=== PATIENT | female | born 1950 | race Caucasian/White ===

== ENCOUNTER 2020-10-19 12:33 | Outpatient (REF) | payer MEDICARE, OTHER, SELFPAY ==
[2020-10-19 14:26] LABS: Glucose Urine UA 100 MG/DL (NEG); Leukocyte Esterase Urine 1+ (NEG); Nitrite Urine NEG (NEG); Specific Gravity - Urine 1.025 (1.005-1.025); UACC Culture Trigger YES; Urine Blood 1+ (NEG); Urine Ketones NEG (NEG); Urine Protein 2+ MG/DL (NEG-TRACE)
[2020-10-19 14:28] LABS: Appearance Urine CLOUDY; Color Urine YELLOW
[2020-10-19 14:43] LABS: Bacteria Urine 2+ /LPF; Mucus Urine 1+ /LPF; Squamous Epithelial Cell Urine 1+ /LPF; WBC Urine TNTC /HPF (0-4)
== END 2020-10-19 12:34 | disposition home or self-care (01) ==
LOC: HO.HMGCLDS 12:33
PROVIDERS: PCP Internal Medicine; Visit Provider Internal Medicine
DX: R30.0 Dysuria (principal)
CPT/HCPCS: 81001; 81003; 87086; 87088; 87186

== ENCOUNTER 2021-03-08 14:39 | Outpatient (REF) | payer MEDICARE, OTHER, SELFPAY ==
[2021-03-08 16:29] LABS: Hematocrit 45.9 % (37-47); Hemoglobin 14.6 g/dl (12.0-16.0); Mean Corpuscular HGB Conc 31.8 g/dl (31.0-35.0); Mean Corpuscular Hemoglobin 29.4 pg (27.0-33.0); Mean Corpuscular Volume 92.4 fL (80-98); Mean Platelet Volume 9.8 fL (9.4-12.3); Platelet Count 285 X10*3/uL (160-400); Red Blood Count 4.97 X10*6/uL (4.20-5.50)
[2021-03-08 16:40] LABS: Alanine Aminotransferase 10 U/L (0-31); Albumin Level 4.3 g/dL (3.5-5.0); Alkaline Phosphatase 142 U/L (39-117); Anion Gap 14 (12-20); Aspartate Amino Transferase 17 U/L (5-31); Bilirubin Total 0.4 mg/dL (0.0-1.0); Blood Urea Nitrogen 13 mg/dL (9-16); Calcium 9.3 mg/dL (8.4-10.2); Carbon Dioxide 28 mmol/L (22-29); Chloride 95 mmol/L (96-108); Estimated Glomerular Filt Rate 51; Glucose Random 110 mg/dL (60-115); Potassium 5.2 mmol/L (3.3-5.1); Sodium 132 mmol/L (135-145)
[2021-03-08 17:00] LABS: TSH reflex Free T4 0.88 uIU/mL (0.32-4.0)
== END 2021-03-08 14:40 | disposition home or self-care (01) ==
LOC: HO.HMGCLDS 14:39
PROVIDERS: PCP Internal Medicine; Visit Provider Internal Medicine
DX: F41.9 Anxiety disorder, unspecified (principal); I10 Essential (primary) hypertension; J44.9 Chronic obstructive pulmonary disease, unspecified
CPT/HCPCS: 36415; 80053; 84443; 85027

== ENCOUNTER 2021-03-20 14:08 | Outpatient (REF) | payer MEDICARE, OTHER, SELFPAY ==
[2021-03-20 16:40] LABS: Anion Gap 15 (12-20); Blood Urea Nitrogen 10 mg/dL (9-16); Carbon Dioxide 28 mmol/L (22-29); Chloride 96 mmol/L (96-108); Estimated Glomerular Filt Rate 59; Glucose Random 111 mg/dL (60-115); Potassium 4.5 mmol/L (3.3-5.1); Sodium 134 mmol/L (135-145)
== END 2021-03-20 14:09 | disposition home or self-care (01) ==
LOC: HO.HMGCLDS 14:08
PROVIDERS: PCP Internal Medicine; Visit Provider Internal Medicine
DX: I10 Essential (primary) hypertension (principal)
CPT/HCPCS: 36415; 80048

== ENCOUNTER 2021-04-16 10:39 | Outpatient (REF) | payer MEDICARE, OTHER, SELFPAY ==
[2021-04-16 14:16] LABS: Appearance Urine HAZY; Color Urine YELLOW; Glucose Urine UA 100 MG/DL (NEG); Leukocyte Esterase Urine TRACE (NEG); Nitrite Urine NEG (NEG); UACC Culture Trigger YES; Urine Blood TRACE (NEG); Urine Ketones NEG (NEG); Urine Protein 1+ MG/DL (NEG-TRACE)
[2021-04-16 14:50] LABS: Bacteria Urine 1+ /LPF
[2021-04-16 14:51] LABS: Squamous Epithelial Cell Urine 2+ /LPF
== END 2021-04-16 10:40 | disposition home or self-care (01) ==
LOC: HO.HMGCLDS 10:39
PROVIDERS: PCP Internal Medicine; Visit Provider Internal Medicine
DX: R30.0 Dysuria (principal)
CPT/HCPCS: 81001; 81003; 87086

== ENCOUNTER 2021-04-18 | Outpatient (REF) | payer MEDICARE, OTHER, SELFPAY ==
[2021-04-18 16:36] LABS: Appearance Urine CLEAR; Color Urine YELLOW; Glucose Urine UA 100 MG/DL (NEG); Leukocyte Esterase Urine NEG (NEG); Nitrite Urine NEG (NEG); Specific Gravity - Urine <= 1.005 (1.005-1.025); Urine Blood NEG (NEG); Urine Ketones NEG (NEG); Urine Protein NEG (NEG-TRACE)
== END 2021-04-18 00:01 | disposition home or self-care (01) ==
LOC: HO.HMGCLNP
PROVIDERS: Visit Provider Internal Medicine
DX: R30.0 Dysuria (principal)
CPT/HCPCS: 81003

== ENCOUNTER → 2021-08-20 13:53 | Outpatient (BNVA) | payer MEDICARE, OTHER, SELFPAY | PROVIDERS: PCP Internal Medicine; Visit Provider Internal Medicine | DX: J44.9 Chronic obstructive pulmonary disease, unspecified (principal); F41.9 Anxiety disorder, unspecified; R09.02 Hypoxemia; F17.210 Nicotine dependence, cigarettes, uncomplicated | CPT/HCPCS: 99202 ==

== ENCOUNTER 2021-08-28 13:05 | Outpatient (REF) | payer MEDICARE, SELFPAY ==
--- NOTE | ~2021-08-28 | XR_ITS ---
EXAMINATION: XR CHEST CLINICAL INFORMATION: Nicotine dependence. COMPARISON: None. TECHNIQUE: 2 views of the chest were obtained. FINDINGS: The lungs are well expanded with patchy opacity seen in left upper lobe suggestive of mass. Heart size and pulmonary vascularity is normal. There is mild dextroscoliosis of dorsal spine. There is no lytic process. XR/XR chest 2V IMPRESSION: Left upper lobe opacity suggestive of primary lung lesion. Recommend CT chest for further evaluation.
--- NOTE | 2021-08-28 10:20 | PFT_ITS ---
Forced vital capacity FEV1, FEF 25/75, and MVV are all markedly decreased. Post bronchodilator therapy, there is no significant change. Lung volumes, patient was not able to perform adequate maneuvers for the lung volumes. Diffusion capacity is markedly decreased, but this may be partly due to technical reason and poor efforts. CONCLUSION: This study shows diagnosis of very severe obstructive airway disorder. There is no significant response to bronchodilator therapy. Clinical correlation is recommended. MD EARNEST Segundo/ARACELI / [id number]
== END 2021-08-28 13:06 | disposition home or self-care (01) ==
LOC: HO.XRAY 13:05
PROVIDERS: PCP Internal Medicine; Visit Provider Internal Medicine
DX: J44.9 Chronic obstructive pulmonary disease, unspecified (principal); R09.02 Hypoxemia; F17.200 Nicotine dependence, unspecified, uncomplicated; Z71.6 Tobacco abuse counseling
CPT/HCPCS: 71046; 94060; 94729; 99212

== ENCOUNTER 2021-09-10 22:19 | Emergency (ER) | payer MEDICARE, SELFPAY ==
--- NOTE | 2021-09-10 | ECG_ITS ---
Test Reason : TACHYCARDIA Blood Pressure : / mmHG Vent. Rate : 109 BPM Atrial Rate : 000 BPM P-R Int : 000 ms QRS Dur : 092 ms QT Int : 312 ms P-R-T Axes : 000 -02 -13 degrees QTc Int : 420 ms Accelerated Junctional rhythm RSR' or QR pattern in V1 suggests right ventricular conduction delay Lateral ST elevations with reciprocal changes Abnormal ECG When compared with ECG of 10-SEP-2021 22:34, Accelerated junctional rhythm Lateral ST elevations present Referred By: Saroj Morris Electronically Signed By:Jerome Whitfield
--- NOTE | ~2021-09-10 | CT_ITS ---
EXAMINATION: CT ANGIOGRAM OF THE CHEST WITH AND WITHOUT CONTRAST (CT PULMONARY ANGIOGRAM FOR PE) CLINICAL INFORMATION: Reason for Exam sob elevate d dimer COMPARISON: None TECHNIQUE: Prior to contrast administration, noncontrast localization images were obtained. Subsequently, multidetector volumetric imaging was performed from the thoracic inlet to below the diaphragms following the administration of 65 mL Omnipaque 350 intravenous contrast. No contrast reaction reported Sagittal, coronal, and MIP oblique sagittal reformatted images were obtained on the CT workstation, uploaded to PACS, and reviewed. This CT examination was performed using dose optimization techniques as appropriate, variously including the following: *Automated exposure control *Adjustment of mA and/or kV according to patient size (this includes techniques or standardized protocols for targeted exams where dose is matched to indication/reason for exam; i.e. extremities or head) *Use of iterative reconstruction technique Total exam dose-length product 254 mGy-cm FINDINGS: QUALITY OF STUDY/CONTRAST BOLUS: Satisfactory. PULMONARY ARTERIES: No central or segmental pulmonary emboli. THORACIC AORTA: No aneurysm or dissection. LUNG: Moderate to severe emphysema. There is a 3.2 x 1.5 cm opacity within left upper lobe along major fissure. There is a 1.0 cm nodule within left upper lobe. An additional 1.0 cm mean diameter nodule is present within the anterior segment left upper lobe. There is a 5 mm nodule within left upper lobe more superiorly. PLEURA: No pleural effusion or pneumothorax. MEDIASTINUM: Cardiomegaly. No pericardial effusion. No mediastinal or hilar lymphadenopathy. No evidence of septal bowing or right heart strain. CHEST WALL/AXILLA: No axillary or internal mammary lymphadenopathy. OSSEOUS STRUCTURES: No acute or suspicious osseous abnormality. UPPER ABDOMEN: Smooth low-density thickening of the bilateral adrenal glands suggestive of hyperplasia CT/CT angio chest PE protocol IMPRESSION: * No pulmonary embolism. * Moderate to severe emphysema. * Spiculated masslike opacity within left upper lobe, along with 2 additional 1 cm nodules within the left upper lobe are reflective of malignancy until proven otherwise. That being said, the opacities are somewhat low in density, and vessels are seen traversing the dominant opacity within the left upper lobe raising the possibility of an infectious process. Consider short interval follow-up CT in one month. If persistent at that time, CT-guided lung biopsy would be recommended to exclude malignancy. VTE: negative
--- NOTE | ~2021-09-10 | XR_ITS ---
EXAMINATION: XR CHEST CLINICAL INFORMATION: Tachycardia COMPARISON: 08/28/2021 TECHNIQUE: Frontal view of the chest was obtained. FINDINGS: Emphysema. Stable nodular airspace opacity in the left upper lobe concerning for a primary lung lesion. No pleural effusion or pneumothorax. Normal heart size and pulmonary vascularity. Aorta is atherosclerotic. XR/XR chest 1V IMPRESSION: No acute findings. Emphysema and persistent left upper lobe nodular airspace opacities concerning for primary lung neoplasm.
--- NOTE | 2021-09-10 22:33 | ECG_ITS ---
Test Reason : HIGH HEART RATE Blood Pressure : / mmHG Vent. Rate : 146 BPM Atrial Rate : 129 BPM P-R Int : 000 ms QRS Dur : 084 ms QT Int : 280 ms P-R-T Axes : 000 033 008 degrees QTc Int : 436 ms Afib with RVR Abnormal ECG No previous ECGs available Referred By: Generic ED Physician Electronically Signed By:Jerome Whitfield
[2021-09-10 22:36] VITALS: BP 144/73; PULSE 170; RESP 20; TEMP 36.6; O2SAT 98; BMI 21.3
[2021-09-10 22:56] LABS: MANUAL DIFF FLAG NO
[2021-09-10 22:57] LABS: Basophils Percent Auto 0.4 % (0-2); Eosinophils Absolute Auto 0.1 X10*3/uL (0.0-0.4); Eosinophils Percent Auto 0.6 % (0-4); Hematocrit 43.9 % (37.0-47.0); Hemoglobin 13.4 g/dl (12.0-16.0); Imm Gran Abs Auto 0.03 X10*3/uL (0.00-0.03); Imm Gran Pct Auto 0.3 % (0.0-0.4); Lymphocytes Percent Auto 20.9 % (20-40); Mean Corpuscular HGB Conc 30.5 g/dl (31.0-35.0); Mean Corpuscular Hemoglobin 28.5 pg (27.0-33.0); Mean Corpuscular Volume 93.4 fL (80.0-98.0); Mean Platelet Volume 9.9 fL (9.4-12.3); Monocytes Absolute Auto 1.1 X10*3/uL (0.1-1.2); Monocytes Percent Auto 11.7 % (2-11); Neutrophils Absolute Auto 6.2 x10*3/uL (2.0-8.3); Neutrophils Percent Auto 66.1 % (45-73); Platelet Count 261 X10*3/uL (160-400); Red Cell Distribution Width 14.3 % (11.0-16.0); White Blood Count 9.4 X10*3/uL (4.8-10.8)
[2021-09-10 23:12] VITALS: BP 131/72; PULSE 138; RESP 24; O2SAT 99
[2021-09-10] MEDS: Metoprolol Tartrate 5 MG/5 ML VIAL IVPUSH (23:12)
[2021-09-10 23:13] LABS: Anion Gap 12 (12-20); Blood Urea Nitrogen 15 mg/dL (9-16); Calcium 8.6 mg/dL (8.4-10.2); Carbon Dioxide 30 mmol/L (22-29); Chloride 93 mmol/L (96-108); Creatinine Clr Calc Pharmacy 29.9; Estimated Glomerular Filt Rate 44; Glucose Random 110 mg/dL (60-115); Potassium 4.8 mmol/L (3.3-5.1); Sodium 130 mmol/L (135-145)
--- NOTE | 2021-09-10 23:16 | ED_ITS ---
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 On arrival patient's heart rate was in 140s slightly irregular possible AFib Related Data Home Medications Medication Instructions Recorded Confirmed fluticasone 250 mcg-salmeterol 50 INHALATION 03/27/20 05/22/20 mcg/dose blistr powdr for inhalation omeprazole 20 mg capsule,delayed 20 mg PO QAM 09/11/21 09/11/21 release Previous Rx's Medication Instructions Recorded tiotropium bromide 18 mcg capsule 1 cap INHALATION DAILY #90 inh 11/29/20 with inhalation device lisinopril 2.5 mg tablet 2.5 mg PO DAILY #90 tab 07/09/21 albuterol sulfate 90 mcg/actuation 2 puff INHALATION Q6H PRN #8.5 ea 09/02/21 aerosol inhaler alprazolam 0.5 mg tablet 0.5 mg PO DAILY #30 tab 09/02/21 Allergies Allergy/AdvReac Type Severity Reaction Status Date / Time bupropion [From Wellbutrin] Allergy Unknown insomnia Verified 08/28/21 14:22 buspirone [From BuSpar] Allergy Unknown Stomach Verified 08/28/21 14:22 Upset nitrofurantoin Allergy Unknown Difficulty Verified 08/28/21 14:22 Breathing, COPD exacerbation sulfamethoxazole Allergy Unknown difficulty Verified 08/28/21 14:22 [From breathing, Sulfamethoxazole-Trimethoprim] COPD exacerbation trimethoprim Allergy Unknown difficulty Verified 08/28/21 14:22 [From breathing, Sulfamethoxazole-Trimethoprim] COPD exacerbation fluoxetine [Prozac] AdvReac Unknown anxiety Verified 08/28/21 14:22 sertraline [Zoloft] AdvReac Unknown stomach Verified 08/28/21 14:22 upset Statins Depletion Allergy Unknown statin Uncoded 08/28/21 14:22 intolerant Review of Systems Review of Systems: Yes all other systems are reviewed and are negative [facility] Past Medical History Medical History Anxiety COPD (chronic obstructive pulmonary disease) Depression Dysuria Hyperlipidemia Hypoxemia Lung density on x-ray Smoker Surgical History HTN (hypertension) Social History Social History Housing: House Patient Tobacco Use Status: Current everyday Tobacco user Cigarette Packs Per Day: 8 e-Cigarette/Vaping Use: Never Used Advance Directives: No Current occupational status: retired Physical Exam Vital Signs: Vital Signs: Last Vital Signs Temp 97.8 F 09/10/21 22:36 Pulse 110 H 09/11/21 00:00 Resp 18 09/11/21 00:00 BP 113/70 09/11/21 00:00 Pulse Ox 99 09/11/21 00:00 Oxygen Flow Rate 2 09/10/21 22:36 BMI result Body Mass Index 21.3 Appearance: Alert. Oriented X3. No acute distress. Eyes: PERRLA, No Nystagmus ENT: Pharynx normal. Oral Mucosa moist Neck: Normal inspection. Neck supple. CVS: Tachycardia with heart rate 140s no murmur or gallop Pulses normal. Respiratory: No respiratory distress. Equal air entry bilateral, no wheezing/rales/rhonchi Abdomen: Soft and nontender. Bowel sounds are present, no mass palpable, no CVA tenderness Skin: Skin warm and dry. Normal skin color. Normal skin turgor. Extremities: No lower extremity edema. No calf tenderness Neuro: Oriented X 3. No motor deficit. No sensory deficit.No cerebellar signs , cranial nerves II-XII intact MDM - Arrhythmia/Palpitations Medical Records Medical records narrative: Patient with tachycardia questionable AFib also 2nd EKG showed ST depression in lead 3 and AVF possible ischemic patient is still troponin was elevated will repeat the troponin patient denies any chest pain at this time but had chest pain at home when the symptoms started a patient took laura aspirin at that time will give her Lovenox plan to admit for further evaluation also will do the CT chest rule out PE Lab Data Attestation: I reviewed the patient's lab results. Result diagrams: 09/10/21 22:51 09/10/21 22:51 Labs: Lab Results 09/10/21 09/10/21 09/10/21 Range/Units 22:51 22:51 22:51 WBC 9.4 (4.8-10.8) X10*3/uL RBC 4.70 (4.20-5.50) X10*6/uL Hgb 13.4 (12.0-16.0) g/dl Hct 43.9 (37.0-47.0) % MCV 93.4 (80.0-98.0) fL MCH 28.5 (27.0-33.0) pg MCHC 30.5 L (31.0-35.0) g/dl RDW 14.3 (11.0-16.0) % Plt Count 261 (160-400) X10*3/uL MPV 9.9 (9.4-12.3) fL Immature Gran % (Auto) 0.3 (0.0-0.4) % Neut % (Auto) 66.1 (45-73) % Lymph % (Auto) 20.9 (20-40) % Leon % (Auto) 11.7 H (2-11) % Eos % (Auto) 0.6 (0-4) % Baso % (Auto) 0.4 (0-2) % Lymph # (Auto) 2.0 (1.2-4.9) X10*3/uL Leon # (Auto) 1.1 (0.1-1.2) X10*3/uL Eos # (Auto) 0.1 (0.0-0.4) X10*3/uL Baso # (Auto) 0.0 (0.0-0.2) X10*3/uL Abs Immat Gran (auto) 0.03 (0.00-0.03) X10*3/uL Absolute Neuts (auto) 6.2 (2.0-8.3) x10*3/uL Absolute Nucleated RBC 0.000 (0.0-0.012) X10*3/uL Nucleated RBC % (auto) 0.0 (0.0-0.2) /100WBC PT (9.9-13.0) SEC INR (0.9-1.1) APTT (24.1-38.0) SEC D-Dimer High Sensitivty NG/ML Sodium 130 L (135-145) mmol/L Potassium 4.8 (3.3-5.1) mmol/L Chloride 93 L (96-108) mmol/L Carbon Dioxide 30 H (22-29) mmol/L Anion Gap 12 (12-20) BUN 15 (9-16) mg/dL Creatinine 1.20 (0.5-1.4) mg/dL Estim Creat Clear Calc 29.9 Estimated GFR 44 Random Glucose 110 (60-115) mg/dL Calcium 8.6 (8.4-10.2) mg/dL Total Bilirubin 0.4 (0.0-1.0) mg/dL Direct Bilirubin < 0.2 (0.0-0.5) mg/dL AST 16 (5-31) U/L ALT 10 (0-31) U/L Alkaline Phosphatase 93 D (39-117) U/L Troponin I High Sens 47.1 H (<3.5-17.0) ng/L Total Protein 6.0 L (6.5-8.0) g/dL Albumin 3.7 (3.5-5.0) g/dL 09/10/21 Range/Units 23:07 WBC (4.8-10.8) X10*3/uL RBC (4.20-5.50) X10*6/uL Hgb (12.0-16.0) g/dl Hct (37.0-47.0) % MCV (80.0-98.0) fL MCH (27.0-33.0) pg MCHC (31.0-35.0) g/dl RDW (11.0-16.0) % Plt Count (160-400) X10*3/uL MPV (9.4-12.3) fL Immature Gran % (Auto) (0.0-0.4) % Neut % (Auto) (45-73) % Lymph % (Auto) (20-40) % Leon % (Auto) (2-11) % Eos % (Auto) (0-4) % Baso % (Auto) (0-2) % Lymph # (Auto) (1.2-4.9) X10*3/uL Leon # (Auto) (0.1-1.2) X10*3/uL Eos # (Auto) (0.0-0.4) X10*3/uL Baso # (Auto) (0.0-0.2) X10*3/uL Abs Immat Gran (auto) (0.00-0.03) X10*3/uL Absolute Neuts (auto) (2.0-8.3) x10*3/uL Absolute Nucleated RBC (0.0-0.012) X10*3/uL Nucleated RBC % (auto) (0.0-0.2) /100WBC PT 10.2 (9.9-13.0) SEC INR 0.9 (0.9-1.1) APTT 32.6 (24.1-38.0) SEC D-Dimer High Sensitivty 474 NG/ML Sodium (135-145) mmol/L Potassium (3.3-5.1) mmol/L Chloride (96-108) mmol/L Carbon Dioxide (22-29) mmol/L Anion Gap (12-20) BUN (9-16) mg/dL Creatinine (0.5-1.4) mg/dL Estim Creat Clear Calc Estimated GFR Random Glucose (60-115) mg/dL Calcium (8.4-10.2) mg/dL Total Bilirubin (0.0-1.0) mg/dL Direct Bilirubin (0.0-0.5) mg/dL AST (5-31) U/L ALT (0-31) U/L Alkaline Phosphatase (39-117) U/L Troponin I High Sens (<3.5-17.0) ng/L Total Protein (6.5-8.0) g/dL Albumin (3.5-5.0) g/dL ECG Data Attestation: I personally reviewed and interpreted this ECG as follows: Interpretation: Supraventricular narrow complex tachycardia with rate 146 beats per minute questionable AFib no acute ST wave changes Discharge Plan Discharge Clinical Impression: Supraventricular tachycardia, Non-STEMI (non-ST elevated myocardial infarction) Patient Disposition: Admitted As Inpatient
[2021-09-10 23:17] LABS: INTERNATIONAL NORM RATIO 0.9 (0.9-1.1); Prothrombin Time 10.2 SEC (9.9-13.0)
[2021-09-10 23:18] LABS: Troponin-I High Sensitivity 47.1 ng/L (<3.5-17.0)
[2021-09-10 23:20] LABS: Partial Thromboplastin Time 32.6 SEC (24.1-38.0)
[2021-09-10 23:31] VITALS: BP 113/77; PULSE 109; RESP 18; O2SAT 99
[2021-09-10 23:46] VITALS: BP 114/66; PULSE 107; RESP 18; O2SAT 99
[2021-09-11] VITALS: BP 113/70; PULSE 110; RESP 18; O2SAT 99
--- NOTE | 2021-09-11 | ECG_ITS ---
Test Reason : REPECT Blood Pressure : / mmHG Vent. Rate : 090 BPM Atrial Rate : 090 BPM P-R Int : 192 ms QRS Dur : 094 ms QT Int : 346 ms P-R-T Axes : 077 027 040 degrees QTc Int : 423 ms Normal sinus rhythm Possible Left atrial enlargement RSR' or QR pattern in V1 suggests right ventricular conduction delay Borderline ECG When compared with ECG of 10-SEP-2021 23:19, Sinus rhythm has replaced Junctional rhythm Non-specific change in ST segment in Inferior leads T wave inversion no longer evident in Inferior leads Referred By: Angel Morales Electronically Signed By:Jerome Whitfield
[2021-09-11 00:18] LABS: D Dimer High Sensitivity 474 NG/ML
[2021-09-11 00:29] LABS: Alanine Aminotransferase 10 U/L (0-31); Albumin Level 3.7 g/dL (3.5-5.0); Alkaline Phosphatase 93 U/L (39-117); Aspartate Amino Transferase 16 U/L (5-31); Bilirubin Direct < 0.2 mg/dL (0.0-0.5); Bilirubin Total 0.4 mg/dL (0.0-1.0)
[2021-09-11] MEDS: Enoxaparin Sodium 100 MG/ML SYRINGE SUBCUT (00:33)
--- NOTE | 2021-09-11 01:09 | PC.NURSE ---
Pt moved from [facility] into room 3. Pt off to CT on hospital bed. Hospitalist at bedside for eval.
[2021-09-11] MEDS: iohexoL 350 MG/ML 100 ML INFUS..BTL 65 ML IV (01:22)
--- NOTE | 2021-09-11 01:33 | PC.NURSE ---
cell phone repair technician at bedside for EKG, labs and Covid. Med Rec completed at bedside with pt.
[2021-09-11 02:08] LABS: COVID-19 Test Negative (Negative)
[2021-09-11] MEDS: 0.9 % Sodium Chloride 1,000 ML 999 ML IV (02:19)
[2021-09-11] MEDS: ALPRAZolam 0.25 MG TABLET PO (02:19)
[2021-09-11 02:24] VITALS: BP 140/69; PULSE 87; RESP 16; TEMP 36.5; O2SAT 100
--- NOTE | 2021-09-11 03:12 | PC.NURSE ---
at bedside for eval.
--- NOTE | 2021-09-11 03:46 | PC.NURSE ---
CALL OUT TO [facility] TRANSFER LINE @ [phone]
--- NOTE | 2021-09-11 04:13 | PC.NURSE ---
[facility] M5 [id number] NURSE TO NURSE
--- NOTE | 2021-09-11 04:17 | PC.NURSE ---
CALLED [facility] @ [facility] PATIENT HAS [employer] FOR INSURANCE. [facility] COULD NOT TRANSPORT PATIENT RUN #[id number] CALLED [facility] @[id number] REGARDING TRANSFER TO [facility], [facility] AGREED TO TRANSPORT
--- NOTE | 2021-09-11 04:43 | PC.NURSE ---
Nurse to nurse given to RN. Awaiting EMS.
--- NOTE | 2021-09-11 04:58 | PC.NURSE ---
EMS at bedside for transport.
== END 2021-09-11 05:00 | disposition short-term general hospital (02) ==
PROVIDERS: Internal Medicine; Emergency Provider Emergency Medicine Emergency Medical Services; PCP Internal Medicine
DX: I21.4 Non-ST elevation (NSTEMI) myocardial infarction (principal); I47.1 Supraventricular tachycardia; R00.2 Palpitations; R06.00 Dyspnea, unspecified; R91.8 Other nonspecific abnormal finding of lung field; Z20.822 Contact with and (suspected) exposure to COVID-19; I10 Essential (primary) hypertension; E78.5 Hyperlipidemia, unspecified; F17.200 Nicotine dependence, unspecified, uncomplicated
CPT/HCPCS: 36415; 71045; 71275; 80048; 80076; 84484; 85025; 85379; 85610; 85730; 87635; 93005; 96361; 96372; 96374; 99285; J1650; Q9967

== ENCOUNTER 2021-10-29 09:32 | Outpatient (REF) | payer MEDICARE, SELFPAY | END 2021-10-29 09:33 | disposition home or self-care (01) | LOC: HO.PET 09:32 | PROVIDERS: Visit Provider Internal Medicine | DX: Z13.89 Encounter for screening for other disorder (principal) ==

== ENCOUNTER 2021-11-05 09:25 | Outpatient (REF) | payer MEDICARE, SELFPAY ==
--- NOTE | ~2021-11-05 | PE_ITS ---
EXAMINATION: PET/CT FUSION SKULL TO THIGH CLINICAL INFORMATION: Pulmonary nodules. COMPARISON: CTA chest 09/11/2021. TECHNIQUE: Following intravenous administration of 15.5 mCi of F-18 FDG isotope in the left antecubital vein, whole-body emission scan was obtained from skull base to proximal thigh approximately 90 minutes later. 3.[address] transmission scan was obtained for correlative imaging without oral or IV contrast. 3-D color fusion and MIP imaging was performed on a separate workstation. Baseline glucose measures 100 mg/dL. DLP: 323.36 mGy-cm FINDINGS: SKULL BASE AND NECK: There is moderate hypermetabolic activity seen in bilateral submandibular glands with SUV of 3.16, bilateral symmetrical activity in the right posterior pharyngeal muscle with an SUV of 4.6, bilateral glossopharyngeal sulcus SUV of 3.2 and left lateral and infraparotid lymph node with an SUV measuring 9.21. The lymph node is best visualized on axial slice 203/2 and is suspicious. No abnormal metabolic activity seen in the skull base or visualized intracranial brain parenchyma. CHEST: There is mild metabolic activity seen within the posterior symmetrical cervicothoracic musculature, nonspecific. There is moderate metabolic activity seen in the main left upper lobe lesion with an SUV 3.99, main 2 cm lesion left upper lobe and mild tenting of the superior major fissure on axial slice 159/2. Slightly inferiorly in the central left upper lobe there is a 1 cm lesion on axial slice 155/2 with an SUV measurement of 1.25. There is a third lesion located anteriorly measuring 1.1 cm on axial slice 143/2 with SUV 2.66. Focal atelectatic changes are seen in the lingula on axial image 122/7. There is an FDG activity seen in the right lower lobe lesion measuring 2.2 cm on axial slice 140/2 with an SUV measurement of 4.60. This lesion was not visualized on the last CT chest exam 09/11/2021. No additional FDG activity seen in the chest, mediastinum or the axilla. Heart size is normal. There is atherosclerotic calcification of aortic arch. There is diffuse centrilobular emphysema. ABDOMEN AND PELVIS: No abnormal metabolic activity seen in the abdomen and pelvis. There is normal physiologic activity seen in the right kidney, pelvis and stomach. No activity seen in the left kidney or the pelvis. Normal physiology activity is seen in the urinary bladder. On CT visualized liver, spleen, pancreas and adrenal glands are unremarkable. No radiopaque gallstones or radiopaque renal calculi seen. There is an extrarenal right kidney pelvis. The left kidney is small. There is mild constipation. There is atherosclerotic dilatation of mid and distal abdominal aorta with distal abdominal aorta measuring 3.0 x 3.1 cm axial slice 60/2 with a calcified flap on axial image 66/2. The mid segment measures 3.5 x 3.8 cm. Imaging through the pelvis reveals no significant abnormality. MSK: No abnormal metabolic activity seen in the musculoskeletal system on CT. Mild degenerative disc changes are seen in mid and lower dorsal spine. No lytic or sclerotic process seen. There is no compression fracture. PET/PET CT fusion skull to thigh IMPRESSION: 3 focal abnormal metabolically active lesions. The main lesion in the left upper lobe adjacent to the major fissure. There are 2 smaller lesions in the left upper lobe as described above. There is a new abnormal metabolic active lesion in the right upper lobe. It is new since the last CT chest exam 09/11/2021. No abnormal metastatic lymph nodes seen in the chest. However, there is an abnormal metastatic lymph node suspected in the left neck adjacent to the left parotid gland. There is metabolic activity seen in the oropharyngeal muscles likely artifact. No CT visualized mass seen in this region.
== END 2021-11-05 09:26 | disposition home or self-care (01) ==
LOC: HO.PET 09:25
PROVIDERS: PCP Internal Medicine; Visit Provider Internal Medicine
DX: Z13.89 Encounter for screening for other disorder (principal)

== ENCOUNTER → 2021-11-18 16:11 | Outpatient (BNVA) | payer MEDICARE, SELFPAY | PROVIDERS: PCP Internal Medicine; Visit Provider Internal Medicine | DX: J44.9 Chronic obstructive pulmonary disease, unspecified (principal); R09.02 Hypoxemia; D49.1 Neoplasm of unspecified behavior of respiratory system | CPT/HCPCS: 99212 ==

== ENCOUNTER 2022-03-26 14:01 | Outpatient (REF) | payer MEDICARE, SELFPAY ==
[2022-03-26 16:52] LABS: Appearance Urine Cloudy; Color Urine Yellow; Glucose Urine UA Negative (Negative); Leukocyte Esterase Urine Moderate (2+) (Negative); Nitrite Urine Negative (Negative); UMIC TRIGGER UACC YES; Urine Blood Trace (Negative); Urine Ketones Negative (Negative); Urine Protein 100 (2+) mg/dL (Neg-Trace)
[2022-03-26 16:58] LABS: Bacteria Urine Trace (None Seen); Hyaline Casts Urine 0-2 /LPF (0-2); RBC Urine 0-2 /HPF (0-2); UACC Culture Trigger YES; WBC Urine >50 /HPF (0-5)
== END 2022-03-26 14:02 | disposition home or self-care (01) ==
LOC: HO.HMGCLDS 14:01
PROVIDERS: PCP Internal Medicine; Visit Provider Internal Medicine
DX: Z13.89 Encounter for screening for other disorder (principal)
CPT/HCPCS: 81001; 87086

== ENCOUNTER 2022-04-01 10:00 | Outpatient (REF) | payer MEDICARE, SELFPAY ==
[2022-04-01 11:42] LABS: Appearance Urine Clear; Color Urine Yellow; Glucose Urine UA Negative (Negative); Leukocyte Esterase Urine Moderate (2+) (Negative); Nitrite Urine Negative (Negative); UMIC TRIGGER UA YES; UMIC TRIGGER UACC YES; Urine Blood Negative (Negative); Urine Ketones Negative (Negative); Urine Protein 30 (1+) mg/dL (Neg-Trace)
[2022-04-01 11:51] LABS: Bacteria Urine Trace (None Seen); Hyaline Casts Urine 0-2 /LPF (0-2); RBC Urine 0-2 /HPF (0-2); UACC Culture Trigger YES; WBC Urine >50 /HPF (0-5)
== END 2022-04-01 10:01 | disposition home or self-care (01) ==
LOC: HO.HMGCLDS 10:00
PROVIDERS: PCP Internal Medicine; Visit Provider Internal Medicine
DX: R30.0 Dysuria (principal)
CPT/HCPCS: 81001; 87086; 87088; 87186

== ENCOUNTER 2022-04-15 | Outpatient (REF) | payer MEDICARE, SELFPAY | END 2022-04-15 00:01 | disposition home or self-care (01) | LOC: CF | PROVIDERS: PCP Internal Medicine; Visit Provider Internal Medicine | DX: J44.9 Chronic obstructive pulmonary disease, unspecified (principal); R09.02 Hypoxemia; D49.1 Neoplasm of unspecified behavior of respiratory system; F41.9 Anxiety disorder, unspecified; F17.200 Nicotine dependence, unspecified, uncomplicated; Z71.6 Tobacco abuse counseling | CPT/HCPCS: Q3014 ==

== ENCOUNTER → 2022-06-03 09:38 | Outpatient (BNVA) | payer MEDICARE, SELFPAY | PROVIDERS: PCP Internal Medicine; Visit Provider Internal Medicine | DX: J44.1 Chronic obstructive pulmonary disease with (acute) exacerbation (principal); D49.1 Neoplasm of unspecified behavior of respiratory system; R09.02 Hypoxemia | CPT/HCPCS: Q3014 ==

== ENCOUNTER 2022-06-13 12:56 | Outpatient (REF) | payer MEDICARE, SELFPAY ==
[2022-06-13 14:21] LABS: Appearance Urine Cloudy; Color Urine Yellow; Glucose Urine UA Negative (Negative); Leukocyte Esterase Urine Large (3+) (Negative); Nitrite Urine Negative (Negative); UMIC TRIGGER UACC YES; Urine Blood Trace (Negative); Urine Ketones Negative (Negative); Urine Protein 100 (2+) mg/dL (Neg-Trace)
[2022-06-13 14:26] LABS: Bacteria Urine None Seen (None Seen); Hyaline Casts Urine 0-2 /LPF (0-2); RBC Urine 0-2 /HPF (0-2); Squamous Epithelial Cell Urine 0-2 /HPF (0-2); UACC Culture Trigger YES; WBC Urine >50 /HPF (0-5)
== END 2022-06-13 12:57 | disposition home or self-care (01) ==
LOC: HO.HMGCLDS 12:56
PROVIDERS: PCP Internal Medicine; Visit Provider Internal Medicine
DX: R30.0 Dysuria (principal)
CPT/HCPCS: 81001; 87086

== ENCOUNTER 2022-06-17 14:05 | Outpatient (REF) | payer MEDICARE, SELFPAY ==
[2022-06-17 16:42] LABS: Appearance Urine Turbid; Color Urine Yellow; Glucose Urine UA Negative (Negative); Leukocyte Esterase Urine Moderate (2+) (Negative); Nitrite Urine Negative (Negative); PH 7.5 (5.0-9.0); Specific Gravity - Urine 1.015 (1.005-1.025); UMIC TRIGGER UACC YES; Urine Blood Small (1+) (Negative); Urine Ketones Negative (Negative); Urine Protein 100 (2+) mg/dL (Neg-Trace)
[2022-06-17 16:47] LABS: Bacteria Urine 4+ (None Seen); Hyaline Casts Urine 0-2 /LPF (0-2); UACC Culture Trigger YES; WBC Urine >50 /HPF (0-5)
== END 2022-06-17 14:06 | disposition home or self-care (01) ==
LOC: HO.HMGCLNP 14:05
PROVIDERS: PCP Internal Medicine; Visit Provider Internal Medicine
DX: R30.0 Dysuria (principal)
CPT/HCPCS: 81001; 87086; 87088; 87186

== ENCOUNTER 2022-11-29 16:42 | Emergency (ER) | payer MEDICARE, SELFPAY ==
[2022-11-29 16:50] VITALS: BP 145/76; BP 162/76; PULSE 112; PULSE 116; RESP 20; TEMP 37.6; O2SAT 94; O2SAT 95; BMI 20.8
[2022-11-29 17:05] VITALS: RESP 20
--- NOTE | 2022-11-29 17:12 | PC.NURSE ---
pt a&ox3. respirations equal but labored. o2 95 on 3L at baseline. skin warm,pink and moist. patient reporting pain in lower back with movement that worsens with ambulation.
[2022-11-29 18:06] VITALS: BP 113/62; PULSE 107; RESP 24; O2SAT 98
--- NOTE | 2022-11-29 18:43 | ED.GENADULT ---
HPI - General Adult General Chief complaint: Back Pain/Injury Stated complaint: UNABLE TO AMBULATE D/T SPINE FX PER EMS Time Seen by Provider: 11/29/22 18:15 Source: patient, family (Daughter (HCP), son.) and EMS Mode of arrival: EMS Limitations: no limitations History of Present Illness HPI narrative: 72-year-old female with advanced COPD, left upper lobe is that patient decided against any further intervention, patient fell 2 weeks ago been having low back pain, patient was evaluated at an urgent care had x-ray showed compression fraction of the lumbar back, patient was taking baclofen and prednisone for her pain, ran out of baclofen now is complaining of severe low back pain. Patient also been having wheezing requesting inhaler. Patient and family declined rehab or workup for shortness of breath and COPD and here today to control her pain and go home. Related Data Home Medications Medication Instructions Recorded Confirmed cholecalciferol (vitamin D3) 25 25 mcg PO BID 09/30/21 09/30/21 mcg (1,000 unit) capsule Previous Rx's Medication Instructions Recorded omeprazole 20 mg capsule,delayed 20 mg PO QAM #90 caps 09/11/21 release phenazopyridine 200 mg tablet 200 mg PO TID PRN pain #20 tabs 03/28/22 (Pyridium) alprazolam 0.5 mg tablet 0.5 mg PO DAILY #30 tabs 03/31/22 levofloxacin 250 mg tablet 250 mg PO DAILY 3 days #3 tabs 06/19/22 lisinopril 5 mg tablet 5 mg PO DAILY #90 tabs 07/24/22 diltiazem HCl 120 mg 120 mg PO DAILY #90 caps 09/08/22 capsule,extended release 24 hr Wixela Inhub 250 mcg-50 mcg/dose 1 inh inhalation BID #180 ea 10/06/22 powder for inhalation (fluticasone propion-salmeterol) baclofen 10 mg tablet 10 mg PO BID #30 tabs 11/07/22 prednisone 10 mg tablet See Rx Instructions PO DAILY #30 11/07/22 tabs alprazolam 0.5 mg tablet 0.5 mg PO BID Anxiety/COPD 30 11/10/22 days #60 tabs tiotropium bromide 18 mcg capsule 1 cap inhalation DAILY #90 11/10/22 with inhalation device inhalations albuterol sulfate 90 mcg/actuation 2 puff inhalation Q6H PRN for 11/20/22 aerosol inhaler wheezing #8.5 ea oxycodone 5 mg tablet 5 mg PO BID PRN pain #14 tabs 11/29/22 Allergies Allergy/AdvReac Type Severity Reaction Status Date / Time buspirone [From BuSpar] Allergy Unknown Stomach Verified 11/29/22 17:04 Upset nitrofurantoin Allergy Unknown Difficulty Verified 11/29/22 17:04 Breathing, COPD exacerbation sulfamethoxazole Allergy Unknown difficulty Verified 11/29/22 17:04 [From breathing, Sulfamethoxazole-Trimethoprim] COPD exacerbation trimethoprim Allergy Unknown difficulty Verified 11/29/22 17:04 [From breathing, Sulfamethoxazole-Trimethoprim] COPD exacerbation bupropion [From Wellbutrin] AdvReac Unknown insomnia Verified 11/29/22 17:04 fluoxetine [Prozac] AdvReac Unknown anxiety Verified 11/29/22 17:04 sertraline [Zoloft] AdvReac Unknown stomach Verified 11/29/22 17:04 upset Statins Depletion Allergy Unknown statin Uncoded 06/03/22 09:52 intolerant Review of Systems Review of Systems: All other systems are reviewed and are negative Constitutional: Reports as per HPI and Reports no additional constitutional complaints Eyes: Reports as per HPI and Reports no additional eye complaints Reports system reviewed and no additional complaints, except as documented Cardiovascular: Reports as per HPI and Reports no additional cardiovascular complaints Respiratory: Reports as per HPI and Reports no additional respiratory complaints Gastrointestinal: Reports as per HPI and Reports no additional gastrointestinal complaints Genitourinary: Reports no additional female genitourinary complaints Musculoskeletal: Reports no additional musculoskeletal complaints Skin/Breast: Reports system reviewed and no additional complaints, except as docu Psychiatric: Reports no additional psychiatric complaints Endocrine: Reports no additional endocrine complaints Hematologic/Lymphatic: Reports no additional hematologic/lymphatic complaints Allergic/Immunologic: Reports no additional allergic/immunologic complaints Reports system reviewed and no additional complaints, except as documented and Reports Abnormal speech present [facility] Past Medical History Medical History Anxiety COPD (chronic obstructive pulmonary disease) COPD exacerbation Depression History of non-ST elevation myocardial infarction (NSTEMI) (~2021) HTN (hypertension) Hyperlipidemia Hypoxemia Mass of left lung Osteoporosis (~2016) Smoker Tachycardia Tubular adenoma of colon (~2003) Surgical History History of cardiac cath History of colonoscopy History of esophagogastroduodenoscopy (EGD) Social History Social History Housing: House Alcohol intake: never Patient Tobacco Use Status: Current everyday Tobacco user Tobacco use type: Cigarette Cigarettes Per Day: 6 Smoked in Last 30 Days: Yes e-Cigarette/Vaping Use: Never Used Use of substances other than those prescribed or required for medical reasons: No Advance Directives: No Advance Directives Information Provided: No Current occupational status: retired Cognitive needs: No Hearing needs: No Vision needs: Yes Physical Exam ED Vital Signs: Vital Signs - 24 hr 11/29/22 16:50 11/29/22 17:05 11/29/22 18:06 Temperature 99.7 F Pulse Rate 116 H 107 H Respiratory Rate 20 20 24 H Blood Pressure 145/76 H 113/62 Pulse Oximetry 94 98 Oxygen Delivery Method Nasal Cannula Nasal Cannula Oxygen Flow Rate 3 11/29/22 19:31 11/29/22 22:09 Temperature Pulse Rate 100 102 H Respiratory Rate 20 15 Blood Pressure 145/62 H Pulse Oximetry 91 L Oxygen Delivery Method Nasal Cannula Oxygen Flow Rate 3.5 BMI result Body Mass Index 20.8 Vital signs have been reviewed as appeared to be correct. Blood pressure normal. Heart rate normal. Respiration rate normal. Temperature normal. Oxygen saturation normal. Appearance: Alert. Oriented X3. No acute distress. Head: Normal external exam. Normocephalic. Atraumatic. No Scruggs signs noted. No raccoon eyes noted Eyes: PERRLA. EOMI. Conjunctiva and sclera normal. Eyelids normal. ENT: TM's Normal. Pharynx normal. Uvula midline. Moist mucous membranes. No trismus noted. No drooling noted. No muffled voice noted. Neck: Normal inspection. Neck supple. FROM. No adenopathy. Thyroid Normal. No meningeal signs. No neck mass noted. CVS: Normal heart rate and rhythm. Heart sound normal. No murmurs noted. Pulses normal throughout. Respiratory: No respiratory distress. Painless inspiration. Breath sounds normal. No wheezes/rales/rhonchi noted. Chest nontender. No accessory muscle usage noted or decreased air movement noted. Abdomen: Soft and nontender. Bowel sounds normal in all 4 quadrants. No distention noted. No organomegaly noted. No visible injury noted. Back: No CVA tenderness. Full range of motion noted. Skin: Skin warm and dry. Normal skin color. Normal skin turgor. No rashes/lesions/lacerations noted. Extremities: No lower extremity edema. Extremities exhibit normal range of motion. Extremities nontender. Neuro: Oriented X 3. Cranial nerve exam: II-XII are grossly intact No motor deficit. No sensory deficit. Reflexes normal. Able to move lower extremities limited due to pain, perianal sensation is intact. Course Course Course Narrative: 72-year-old female L1-L2 compression fracture with severe back pain, daughter/patient declined rehab placement and would like to be discharged home, patient was able to ambulate in the emergency department. Patient received 1 bag of IV fluid hydration. Medications Administered Discontinued Medications Generic Name Dose Route Start Last Admin Trade Name Freq PRN Reason Stop Dose Admin Albuterol Sulfate 5 mg 11/29/22 18:54 11/29/22 19:28 Albuterol Sulfate (0.083%) 2.5 Mg/3 Ml Vial.Neb INHALE 11/29/22 18:55 5 mg ONCE ONE Administration Sodium Chloride 1,000 mls @ 999 mls/hr 11/29/22 20:49 11/29/22 22:56 Ns IV 11/29/22 21:49 Infused .Q1H1M ONE Infusion Oxycodone HCl 5 mg 11/29/22 18:43 11/29/22 18:48 Oxycodone Hcl Immed Release 5 Mg Tablet PO 11/29/22 18:44 5 mg ONCE ONE Administration Medical Decision Making Differential Diagnosis Differential Diagnoses: The differential diagnosis associated with the presentation includes (Compression fracture of lumbar spine, dehydration, electrolyte abnormalities, anemia.) Admission/Observation Consideration of admission/observation: Escalation of care including admission/observation considered Lab Data MDM Lab Attestation statement: I reviewed the patient's lab results. 11/29/22 20:57 11/29/22 20:57 Labs: Lab Results 11/29/22 11/29/22 Range/Units 20:57 20:57 WBC 11.5 H (4.8-10.8) X10*3/uL RBC 4.43 (4.20-5.50) X10*6/uL Hgb 12.8 (12.0-16.0) g/dl Hct 42.3 (37.0-47.0) % MCV 95.5 (80.0-98.0) fL MCH 28.9 (27.0-33.0) pg MCHC 30.3 L (31.0-35.0) g/dl RDW 14.6 (11.0-16.0) % Plt Count 257 (160-400) X10*3/uL MPV 9.4 (9.4-12.3) fL Immature Gran % (Auto) 1.0 H (0.0-0.4) % Neut % (Auto) 85.8 H (45-73) % Lymph % (Auto) 5.5 L (20-40) % [place] % (Auto) 7.3 (2-11) % Eos % (Auto) 0.2 (0-4) % Baso % (Auto) 0.2 (0-2) % Lymph # (Auto) 0.6 L (1.2-4.9) X10*3/uL [place] # (Auto) 0.8 (0.1-1.2) X10*3/uL Eos # (Auto) 0.0 (0.0-0.4) X10*3/uL Baso # (Auto) 0.0 (0.0-0.2) X10*3/uL Abs Immat Gran (auto) 0.11 H (0.00-0.03) X10*3/uL Absolute Neuts (auto) 9.9 H (2.0-8.3) x10*3/uL Absolute Nucleated RBC 0.000 (0.0-0.012) X10*3/uL Nucleated RBC % (auto) 0.0 (0.0-0.2) /100WBC Sodium 137 (135-145) mmol/L Potassium 4.5 (3.3-5.1) mmol/L Chloride 91 L (96-108) mmol/L Carbon Dioxide 33 H (22-29) mmol/L Anion Gap 18 (12-20) BUN 35 H (9-16) mg/dL Creatinine 1.17 (0.5-1.4) mg/dL Estim Creat Clear Calc 31.8 Estimated GFR 45 Random Glucose 90 (60-115) mg/dL Calcium 10.2 D (8.4-10.2) mg/dL Lipase 15 (8-78) U/L Independent Interpretation I performed an independent interpretation of an: Plain X-Ray (Chest/thoracic spine/lumbar spine: Diffuse osteoporosis, L1 L2 compression fracture.) Radiology Impression Discussion of test interpretation with radiology: I have reviewed the radiologist's reading. Discharge Plan Discharge Clinical Impression: Back pain, Compression fracture of lumbosacral spine Patient Disposition: Home, Self-Care Instructions: Vertebral Compression Fracture (ED) Prescriptions: New oxycodone 5 mg tablet 5 mg PO BID PRN (Reason: pain) Qty: 14 0RF Rx Instructions: Partial Fill upon patient request. No Action phenazopyridine [Pyridium] 200 mg tablet 200 mg PO TID PRN (Reason: pain) Qty: 20 0RF alprazolam 0.5 mg tablet 0.5 mg PO DAILY Qty: 30 0RF omeprazole 20 mg capsule,delayed release(DR/EC) 20 mg PO QAM Qty: 90 3RF levofloxacin 250 mg tablet 250 mg PO DAILY 3 Days Qty: 3 0RF lisinopril 5 mg tablet 5 mg PO DAILY Qty: 90 0RF diltiazem HCl 120 mg capsule,extended release 24hr 120 mg PO DAILY Qty: 90 3RF fluticasone propion-salmeterol [Wixela Inhub] 250-50 mcg/dose blister with device 1 inh inhalation BID Qty: 180 0RF prednisone 10 mg tablet See Rx Instructions PO DAILY Qty: 30 0RF Rx Instructions: Four tablets p.o. q.d. for 3 days then 3 tablets p.o. q.d. for 3 days then 2 tablets p.o. q.d. for 3 days and 1 tablet p.o. q.d. for 3 days baclofen 10 mg tablet 10 mg PO BID Qty: 30 0RF tiotropium bromide 18 mcg capsule, w/inhalation device 1 cap inhalation DAILY Qty: 90 0RF Rx Instructions: Schedule office visit for future refills alprazolam 0.5 mg tablet 0.5 mg PO BID 30 Days Qty: 60 2RF albuterol sulfate 90 mcg/actuation HFA aerosol inhaler 2 puff inhalation Q6H PRN (Reason: for wheezing) Qty: 8.5 0RF Rx Instructions: Schedule next PCP appt for more refills cholecalciferol (vitamin D3) 25 mcg (1,000 unit) capsule 25 mcg PO BID Referrals: José Luis Carpio MD [Primary Care Provider] -
[2022-11-29 19:31] VITALS: PULSE 100; RESP 20; O2SAT 94
[2022-11-29 22:09] VITALS: BP 145/62; PULSE 102; RESP 15; O2SAT 91
--- NOTE | 2022-11-29 22:57 | PC.NURSE ---
late entry- this rn placed 20 g iv in R AC. bloodwork obtained. pt medicated according to mar. pt son and daughter at bedside this rn assisted pt in utilizing bedside commode. pt 1 assist to commode. pt rets really wants to go home. per family daught feels okay assisting pt at home though wants to make sure pt will be prescribed medication for pain relief. this rn relayed this message to dr kirby. dr kirby reports will go to bedside to discuss plan with family. disposition pending
--- NOTE | 2022-11-30 00:20 | PC.NURSE ---
Addendum entered by Aracely Castro 11/30/22 00:44: this rn assisted pt daughter in dressing pt at discharge. pt reports breathing felt fine at discharge. pt continues to refuse final set of vital signs Original Note: pt refused final set of VS prior to discharge. this rn removed iv at time of discharge. pt agitated states I just want to go home . this rn provided pt and family with discharge packet. pt and family verbalized understanding of discharge plan. pt utilized wheelchair to transport pt to family vehicle
== END 2022-11-30 00:46 | disposition home or self-care (01) ==
PROVIDERS: Emergency Provider Emergency Medicine; PCP Internal Medicine
DX: M54.50 Low back pain, unspecified (principal); M48.57XA Collapsed vertebra, not elsewhere classified, lumbosacral region, initial encounter for fracture; I10 Essential (primary) hypertension; E78.5 Hyperlipidemia, unspecified; F17.210 Nicotine dependence, cigarettes, uncomplicated; Z79.899 Other long term (current) drug therapy
CPT/HCPCS: 36415; 71045; 72070; 72100; 80048; 83690; 85025; 94640; 99285

== ENCOUNTER → 2022-12-03 15:51 | Outpatient (BNVA) | payer MEDICARE, OTHER, SELFPAY | PROVIDERS: PCP Internal Medicine; Visit Provider Internal Medicine | DX: J44.9 Chronic obstructive pulmonary disease, unspecified (principal); D49.1 Neoplasm of unspecified behavior of respiratory system; J96.91 Respiratory failure, unspecified with hypoxia; M54.9 Dorsalgia, unspecified; F17.210 Nicotine dependence, cigarettes, uncomplicated | CPT/HCPCS: 99212 ==

== ENCOUNTER 2023-01-01 13:19 | Inpatient (IN) | payer MEDICARE, SELFPAY ==
[2023-01-01] VITALS (8 sets, daily range): BP systolic 116–133; BP diastolic 52–63; PULSE 67–113; RESP 18–30; TEMP 36.7–38.1; O2SAT 91–100; BMI 20.9; BMI 20.8
--- NOTE | ~2023-01-01 | XR_ITS ---
EXAMINATION: XR CHEST CLINICAL INFORMATION: Status post endotracheal and TLC placement. COMPARISON: 01/11/2023 chest radiograph. TECHNIQUE: Frontal view of the chest was obtained. FINDINGS: Support devices: Endotracheal tube with tip terminating approximately 3 cm proximal to enedelia. Right-sided internal jugular catheter with tip terminating distally in the superior vena cava. Increased patchy opacities and right basilar opacification is seen. Mild patchy opacities are seen in the left suprahilar region. No pneumothorax. The heart and mediastinal structures are unremarkable. XR/XR chest 1V IMPRESSION: 1. Endotracheal tube with tip terminating approximately 3 cm proximal to enedelia. 2. Right internal jugular catheter with tip terminating distally in the superior vena cava. 3. Increased infiltrates bilaterally and right pleural effusion.
--- NOTE | ~2023-01-01 | XR_ITS ---
EXAMINATION: XR CHEST CLINICAL INFORMATION: Shortness of breath. COMPARISON: 01/01/2023 TECHNIQUE: Frontal view of the chest was obtained. FINDINGS: The cardiomediastinal silhouette is stable. There is mild diffuse increased interstitial marking/coarsening similar to previous. There is no focal lung consolidation or pleural effusion. The bony structures are osteopenic. The soft tissues are unremarkable. XR/XR chest 1V IMPRESSION: Diffuse increased interstitial marking/coarsening similar to previous. No focal lung consolidation or pleural effusion.
--- NOTE | ~2023-01-01 | XR_ITS ---
EXAMINATION: XR CHEST CLINICAL INFORMATION: Shortness of breath COMPARISON: 11/29/2022 TECHNIQUE: Frontal view of the chest was obtained. FINDINGS: Irregular airspace opacity in the left upper lung zone is slightly more prominent than on 11/29/2022. There are also developing patchy opacities in the right lower lobe. No gross pleural effusions are evident. The cardiomediastinal silhouette is not well assessed. Thoracolumbar scoliosis is again evident. XR/XR chest 1V IMPRESSION: Worsening left upper lobe and newly developing right mid and lower lung zone airspace opacities 11/29/2022.
--- NOTE | ~2023-01-01 | XR_ITS ---
EXAMINATION: XR CHEST CLINICAL INFORMATION: Hypoxia, worsening. Rule out aspiration. COMPARISON: Chest x-ray 01/09/2023 TECHNIQUE: Frontal view of the chest was obtained. FINDINGS: The lungs are expanded with diffuse increase interstitial markings in both lungs worse since 01/09/2023. No focal consolidation. There is mild blunting of left CP angle question pleural effusion or thickening. Heart size and the great vessels are normal caliber. No gross bony abnormality. No gross bony abnormality seen. XR/XR chest 1V IMPRESSION: 1. Diffuse increase interstitial markings in both lungs worse since 01/09/2023. No focal consolidation seen. 2. Mild blunting of left CP angle question pleural effusion or thickening.
--- NOTE | 2023-01-01 13:38 | ECG_ITS ---
Test Reason : DYSPNEA Blood Pressure : / mmHG Vent. Rate : 106 BPM Atrial Rate : 106 BPM P-R Int : 168 ms QRS Dur : 088 ms QT Int : 332 ms P-R-T Axes : 043 026 048 degrees QTc Int : 441 ms Artifact in tracing Sinus tachycardia Possible Left atrial enlargement Septal infarct , age undetermined Abnormal ECG When compared with ECG of 11-SEP-2021 01:30, No significant changes seen Referred By: Trice Sharma Electronically Signed By:FELISHA JIMENEZ
--- NOTE | 2023-01-01 13:59 | ED.SOB ---
HPI - SOB/Dyspnea General Chief Complaint: Dyspnea Stated Complaint: COPD,WEAKNESS,COVID+ Time Seen by Provider: 01/01/23 13:47 Source: patient and family Limitations: no limitations History of Present Illness HPI Narrative: 72-year-old female with history COPD presents with generalized weakness. Symptoms started within the last 24-36 hours. Patient tested positive for COVID yesterday as well as today. Sick contacts include her daughter who lives below her. Patient has chronic shortness of breath which is not significantly changed. She has a cough which is also not significantly changed. She denies any fevers or chills. She denies any nausea vomiting. All of her symptoms appear to be worsened by any type of exertion. Typically, patient is able to help herself getting to and from the bathroom another head ADLs. However, she has noted a significant decline over the several months previous regards to her activity levels. Family has also recent obtained this services of an aide. Related Data Home Medications Medication Instructions Recorded Confirmed cholecalciferol (vitamin D3) 25 25 mcg PO BID 09/30/21 09/30/21 mcg (1,000 unit) capsule fluticasone 250 mcg-salmeterol 50 1 ea inhalation BID 01/01/23 mcg/dose blistr powdr for inhalation (Steven Inhfeng) omeprazole 20 mg capsule,delayed 20 mg PO DAILY@0630 01/01/23 release oxycodone 5 mg tablet 5 mg PO BID PRN Pain 01/01/23 Previous Rx's Medication Instructions Recorded phenazopyridine 200 mg tablet 200 mg PO TID PRN pain #20 tabs 03/28/22 (Pyridium) diltiazem HCl 120 mg 120 mg PO DAILY #90 caps 09/08/22 capsule,extended release 24 hr baclofen 10 mg tablet 10 mg PO BID #30 tabs 11/07/22 alprazolam 0.5 mg tablet 0.5 mg PO BID Anxiety/COPD 30 11/10/22 days #60 tabs tiotropium bromide 18 mcg capsule 1 cap inhalation DAILY #90 11/10/22 with inhalation device inhalations lisinopril 5 mg tablet 5 mg PO DAILY #90 tabs 12/05/22 albuterol sulfate 90 mcg/actuation 2 puff inhalation Q6H PRN for 12/19/22 aerosol inhaler wheezing #8.5 ea nirmatrelvir 300 mg (150 mg See Rx Instructions PO .COMPLEX 12/31/22 x2)-ritonavir 100 mg tablet,dose covid 5 days #30 ea pack (Paxlovid) Allergies Allergy/AdvReac Type Severity Reaction Status Date / Time buspirone [From BuSpar] Allergy Unknown Stomach Verified 12/03/22 16:22 Upset nitrofurantoin Allergy Unknown Difficulty Verified 12/03/22 16:22 Breathing, COPD exacerbation sulfamethoxazole Allergy Unknown difficulty Verified 12/03/22 16:22 [From breathing, Sulfamethoxazole-Trimethoprim] COPD exacerbation trimethoprim Allergy Unknown difficulty Verified 12/03/22 16:22 [From breathing, Sulfamethoxazole-Trimethoprim] COPD exacerbation bupropion [From Wellbutrin] AdvReac Unknown insomnia Verified 12/03/22 16:22 fluoxetine [Prozac] AdvReac Unknown anxiety Verified 12/03/22 16:22 sertraline [Zoloft] AdvReac Unknown stomach Verified 12/03/22 16:22 upset Statins Depletion Allergy Unknown statin Uncoded 12/03/22 16:22 intolerant Review of Systems Review of Systems: CONSTITUTIONAL: Denies weight loss, fever and chills. HEENT: Denies changes in vision and hearing. RESPIRATORY: + SOB and cough. CV: Denies palpitations no CP. GI: Denies abdominal pain, nausea, vomiting and diarrhea. : Denies dysuria and urinary frequency. MSK: Denies myalgia and joint pain. SKIN: Denies rash and pruritus. NEUROLOGICAL: Denies headache and syncope. PSYCHIATRIC: Denies recent changes in mood. Denies anxiety and depression. All other ROS are negative unless in HPI PMFSH Past Medical History Medical History Anxiety Back pain COPD (chronic obstructive pulmonary disease) COPD exacerbation Depression History of non-ST elevation myocardial infarction (NSTEMI) (~2021) HTN (hypertension) Hyperlipidemia Hypoxemia Mass of left lung Osteoporosis (~2016) Respiratory failure with hypoxia Smoker Tachycardia Tubular adenoma of colon (~2003) Surgical History History of cardiac cath History of colonoscopy History of esophagogastroduodenoscopy (EGD) Social History Social History Housing: House Alcohol intake: never Patient Tobacco Use Status: Current everyday Tobacco user Tobacco use type: Cigarette Cigarettes Per Day: 2 Smoked in Last 30 Days: No e-Cigarette/Vaping Use: Never Used Use of substances other than those prescribed or required for medical reasons: No Advance Directives: Yes Advance Directives on File: Yes Advance Directives Date on File: 01/01/23 Current occupational status: retired Cognitive needs: No Hearing needs: No Vision needs: Yes Physical Exam Vital Signs: Vital Signs: Last Vital Signs Temp 98.0 F 01/01/23 16:48 Pulse 108 H 01/01/23 16:48 Resp 30 H 01/01/23 16:48 BP 118/52 L 01/01/23 16:48 Pulse Ox 91 L 01/01/23 16:48 O2 Del Method Room Air 01/01/23 16:48 O2 Flow Rate 2.5 01/01/23 16:48 Oxygen Flow Rate 4 01/01/23 13:42 BMI result Body Mass Index 20.9 GEN: Well developed, no acute distress, alert, oriented HEENT: Normocephalic, atraumatic, normal external ears, nose appears normal, no oropharyngeal edema or exudates Eyes: Normal to appearance Neck: Supple, no lymphadenopathy Respiratory: Talks in complete sentences, expiratory wheezes Cardiovascular: Regular rate and rhythm, no murmurs rubs or gallops Abdomen: Soft, nontender, nondistended, no guarding, no rebound Back: No CVA tenderness Extremities: No clubbing cyanosis or edema Neurologic: No focal neurologic deficits, cranial nerves 2-12 intact, strength is 5/5 bilaterally Skin: No rash Course Course Course Narrative: The workup is complete. Patient did test negative for COVID. However, given close contact I suspect this is a false negative with 2 home positive test. I did order Paxil that. I will also order azithromycin given new airspace opacifications. She is generally weak. I believe patient would be better off be admitted the hospital. At that point, she can have physical therapy evaluation and potential placement of home services and/or short-term rehabilitation. Reevaluation(s) Reevaluation #1: Patient is full code. Patient is aware of her spiculated mass in the left lung. Per daughter, there has been no further workup and was felt that she would be for patient for chemotherapy. Time: 15:50 Medications Administered Generic Name Dose Route Start Last Admin Trade Name Alanna PRN Reason Stop Dose Admin Nirmatrelvir/Ritonavir 3 tab 01/01/23 21:00 01/01/23 15:47 Nirmatrelvir/Ritonavir 300/100 3 Tab Dose PO 01/06/23 09:01 3 tab BID MCKENNA Administration Medical Decision Making Medical Decision Making [facility] Narrative: 72-year-old female with history of COPD presents with generalized weakness and a positive home COVID test. Examination is relatively benign with the exception of expiratory wheezes. Patient does appear generally weak but no focal deficits. Differential diagnosis will include COVID, electrolyte abnormalities such as hyponatremia, hypokalemia, hypoglycemia, anemia folic etiology of weakness. My plan will be to obtain routine laboratory analysis, COVID test, chest x-ray. Will re-evaluate the patient. I suspect patient may warrant physical therapy and case management consultation for possible short-term rehabilitation or in home services. Differential Diagnosis Differential Diagnoses: The differential diagnosis associated with the presentation includes (See above) Admission/Observation Consideration of admission/observation: Escalation of care including admission/observation considered Lab Data [facility] Lab Attestation statement: I reviewed the patient's lab results. 01/01/23 13:59 01/01/23 13:59 Labs: Lab Results 01/01/23 01/01/23 01/01/23 Range/Units 13:59 13:59 13:59 WBC 7.8 (4.8-10.8) X10*3/uL RBC 3.62 L (4.20-5.50) X10*6/uL Hgb 10.7 L (12.0-16.0) g/dl Hct 34.9 L (37.0-47.0) % MCV 96.4 (80.0-98.0) fL MCH 29.6 (27.0-33.0) pg MCHC 30.7 L (31.0-35.0) g/dl RDW 15.4 (11.0-16.0) % Plt Count 245 (160-400) X10*3/uL MPV 9.8 (9.4-12.3) fL Immature Gran % (Auto) 1.4 H (0.0-0.4) % Neut % (Auto) 80.0 H (45-73) % Lymph % (Auto) 8.5 L (20-40) % [place] % (Auto) 9.9 (2-11) % Eos % (Auto) 0.1 (0-4) % Baso % (Auto) 0.1 (0-2) % Lymph # (Auto) 0.7 L (1.2-4.9) X10*3/uL [place] # (Auto) 0.8 (0.1-1.2) X10*3/uL Eos # (Auto) 0.0 (0.0-0.4) X10*3/uL Baso # (Auto) 0.0 (0.0-0.2) X10*3/uL Abs Immat Gran (auto) 0.11 H (0.00-0.03) X10*3/uL Absolute Neuts (auto) 6.2 (2.0-8.3) x10*3/uL Absolute Nucleated RBC 0.000 (0.0-0.012) X10*3/uL Nucleated RBC % (auto) 0.0 (0.0-0.2) /100WBC Sodium 135 (135-145) mmol/L Potassium 4.4 (3.3-5.1) mmol/L Chloride 93 L (96-108) mmol/L Carbon Dioxide 29 (22-29) mmol/L Anion Gap 17 (12-20) BUN 20 H (9-16) mg/dL Creatinine 0.93 (0.5-1.4) mg/dL Estim Creat Clear Calc 40.0 Estimated GFR 59 Random Glucose 88 (60-115) mg/dL Lactic Acid (0.5-2.0) mmol/L Calcium 9.1 D (8.4-10.2) mg/dL Magnesium 1.8 (1.6-2.6) mg/dL Total Bilirubin 0.3 (0.0-1.0) mg/dL AST 15 (5-31) U/L ALT 10 (0-31) U/L Alkaline Phosphatase 122 H (39-117) U/L Troponin I High Sens 16.3 (<3.5-17.0) ng/L Total Protein 6.1 L (6.5-8.0) g/dL Albumin 3.4 L (3.5-5.0) g/dL COVID-19 (IVANA) (Negative) COVID-19 Clin Com 01/01/23 01/01/23 Range/Units 14:05 14:24 WBC (4.8-10.8) X10*3/uL RBC (4.20-5.50) X10*6/uL Hgb (12.0-16.0) g/dl Hct (37.0-47.0) % MCV (80.0-98.0) fL MCH (27.0-33.0) pg MCHC (31.0-35.0) g/dl RDW (11.0-16.0) % Plt Count (160-400) X10*3/uL MPV (9.4-12.3) fL Immature Gran % (Auto) (0.0-0.4) % Neut % (Auto) (45-73) % Lymph % (Auto) (20-40) % [place] % (Auto) (2-11) % Eos % (Auto) (0-4) % Baso % (Auto) (0-2) % Lymph # (Auto) (1.2-4.9) X10*3/uL [place] # (Auto) (0.1-1.2) X10*3/uL Eos # (Auto) (0.0-0.4) X10*3/uL Baso # (Auto) (0.0-0.2) X10*3/uL Abs Immat Gran (auto) (0.00-0.03) X10*3/uL Absolute Neuts (auto) (2.0-8.3) x10*3/uL Absolute Nucleated RBC (0.0-0.012) X10*3/uL Nucleated RBC % (auto) (0.0-0.2) /100WBC Sodium (135-145) mmol/L Potassium (3.3-5.1) mmol/L Chloride (96-108) mmol/L Carbon Dioxide (22-29) mmol/L Anion Gap (12-20) BUN (9-16) mg/dL Creatinine (0.5-1.4) mg/dL Estim Creat Clear Calc Estimated GFR Random Glucose (60-115) mg/dL Lactic Acid 1.0 (0.5-2.0) mmol/L Calcium (8.4-10.2) mg/dL Magnesium (1.6-2.6) mg/dL Total Bilirubin (0.0-1.0) mg/dL AST (5-31) U/L ALT (0-31) U/L Alkaline Phosphatase (39-117) U/L Troponin I High Sens (<3.5-17.0) ng/L Total Protein (6.5-8.0) g/dL Albumin (3.5-5.0) g/dL COVID-19 (IVANA) Negative (Negative) COVID-19 Clin Com See Note Independent Interpretation I performed an independent interpretation of an: EKG (Sinus tachycardia heart rate 106, possible biatrial enlargement, no acute ST elevations depressions, some areas of low-voltage, isolated ST elevation in V3, incomplete right bundle-branch block) and Plain X-Ray (Left upper lobe mass, appears to be slightly larger than previous, airspace opacifications bilaterally.) Radiology Impression Discussion of test interpretation with radiology: I have reviewed the radiologist's reading. Radiologist Impression: XR/XR chest 1V IMPRESSION: Worsening left upper lobe and newly developing right mid and lower lung zone airspace opacities 11/29/2022. ? Dictated By: Xander Tadeo MD Signed By: <Electronically signed by Xander Tadoe MD in OV> 01/01/23 1525 Independent Historian Clinical information obtained from an independent historian. History obtained from or confirmed by: Other (Daughter) Prescription Management I considered prescription management with: Antiviral and Antibiotic Chronic Conditions Patient?s care impacted by: Other (COPD) Critical Care Time Critical Care Time Critical Care Time: Yes Total Critical Care Time: 40 Attestation: Approximately 40+ minutes of critical care time was spent on patient care including direct patient care, re-evaluation, discussion with family, review of previous medical records, documentation, interpretation and medical data and medical management. This was all outside of medical procedures. Discharge Plan Discharge Clinical Impression: Generalized weakness, COPD (chronic obstructive pulmonary disease), Pneumonia Patient Disposition: Home, Self-Care Prescriptions: No Action phenazopyridine [Pyridium] 200 mg tablet 200 mg PO TID PRN (Reason: pain) Qty: 20 0RF diltiazem HCl 120 mg capsule,extended release 24hr 120 mg PO DAILY Qty: 90 3RF baclofen 10 mg tablet 10 mg PO BID Qty: 30 0RF tiotropium bromide 18 mcg capsule, w/inhalation device 1 cap inhalation DAILY Qty: 90 0RF alprazolam 0.5 mg tablet 0.5 mg PO BID 30 Days Qty: 60 2RF lisinopril 5 mg tablet 5 mg PO DAILY Qty: 90 0RF albuterol sulfate 90 mcg/actuation HFA aerosol inhaler 2 puff inhalation Q6H PRN (Reason: for wheezing) Qty: 8.5 0RF Paxlovid 300 mg (150 mg x 2)-100 mg tablets,dose pack See Rx Instructions PO .COMPLEX 5 Days Qty: 30 0RF Rx Instructions: take TWO 150 mg tablets of nirmatrelvir with ONE 100 mg tablet of ritonavir twice daily for 5 days PO fluticasone propion-salmeterol [Wixela Inhub] 250-50 mcg/dose blister with device 1 ea inhalation BID oxycodone 5 mg tablet 5 mg PO BID PRN (Reason: Pain) omeprazole 20 mg capsule,delayed release(DR/EC) 20 mg PO DAILY@0630 cholecalciferol (vitamin D3) 25 mcg (1,000 unit) capsule 25 mcg PO BID
--- NOTE | 2023-01-01 14:00 | PC.NURSE ---
Pt. on continuous monitor tech at this time.
[2023-01-01 14:12] LABS: MANUAL DIFF FLAG NO
[2023-01-01 14:15] LABS: Basophils Percent Auto 0.1 % (0-2); Eosinophils Percent Auto 0.1 % (0-4); Hematocrit 34.9 % (37.0-47.0); Hemoglobin 10.7 g/dl (12.0-16.0); Imm Gran Abs Auto 0.11 X10*3/uL (0.00-0.03); Imm Gran Pct Auto 1.4 % (0.0-0.4); Lymphocytes Absolute Auto 0.7 X10*3/uL (1.2-4.9); Lymphocytes Percent Auto 8.5 % (20-40); Mean Corpuscular HGB Conc 30.7 g/dl (31.0-35.0); Mean Corpuscular Hemoglobin 29.6 pg (27.0-33.0); Mean Corpuscular Volume 96.4 fL (80.0-98.0); Mean Platelet Volume 9.8 fL (9.4-12.3); Monocytes Absolute Auto 0.8 X10*3/uL (0.1-1.2); Monocytes Percent Auto 9.9 % (2-11); Neutrophils Absolute Auto 6.2 x10*3/uL (2.0-8.3); Platelet Count 245 X10*3/uL (160-400); Red Blood Count 3.62 X10*6/uL (4.20-5.50); Red Cell Distribution Width 15.4 % (11.0-16.0); White Blood Count 7.8 X10*3/uL (4.8-10.8)
[2023-01-01 14:34] LABS: Alanine Aminotransferase 10 U/L (0-31); Albumin Level 3.4 g/dL (3.5-5.0); Alkaline Phosphatase 122 U/L (39-117); Anion Gap 17 (12-20); Aspartate Amino Transferase 15 U/L (5-31); Bilirubin Total 0.3 mg/dL (0.0-1.0); Blood Urea Nitrogen 20 mg/dL (9-16); Calcium 9.1 mg/dL (8.4-10.2); Carbon Dioxide 29 mmol/L (22-29); Chloride 93 mmol/L (96-108); Estimated Glomerular Filt Rate 59; Glucose Random 88 mg/dL (60-115); Magnesium 1.8 mg/dL (1.6-2.6); Potassium 4.4 mmol/L (3.3-5.1); Sodium 135 mmol/L (135-145); Total Protein 6.1 g/dL (6.5-8.0)
[2023-01-01 14:40] LABS: Troponin-I High Sensitivity 16.3 ng/L (<3.5-17.0)
[2023-01-01 15:00] LABS: COVID-19 Test Negative (Negative); IDNOW Serial# BCCEAD1C
--- NOTE | 2023-01-01 16:50 | P.HPHOSP_ITS ---
History of Present Illness Date of Service: 01/01/23 Attending physician on admission: Enrique Sultana Chief Complaint: Generalized weakness Pt is a 72-year-old female with a PMH significant for?moderately severe COPD on 3L home O2, upper left lobe lung cancer declining radiation or chemo, HTN, HLD, GERD, hx heavy tobacco use, and anxiety who presents to the ED with?worsening generalized weakness during the past 24-48 hours. Patient has been getting progressively weak over the past few months likely secondary to her lung cancer, but has still been able to stand up on her own and assist with her ADLs. However, patient states the past couple of days she has experienced a severe decline in her energy levels and has been unable to even stand up. Chronic SOB and chronic productive cough have been at baseline, but patient tested positive for COVID yesterday and again this morning at home. Has two sick contacts: Her daughter who tested positive for COVID a week ago, and her downstairs neighbor who just returned from a hospitalization secondary to a COVID infection. Patient denies fever, chills, nausea, vomiting, abdominal pain. No chest pain/pressure, palpitations. In the ED patient was afebrile tachycardic to 113, with respiratory rate of 20 and slightly soft BP 120/52, desatting to 72% on RA and with minimal exertion. Labs were significant for H&H 10.7/34.9. Lactic acid WNL at 1.0. Electrolytes largely unremarkable. Kidney function at baseline. Renal function at baseline. Patient's initial COVID-19 test negative. CXR showed worsening left upper lobe and newly developing right mid and lower lung zone airspace opacities. EKG demonstrated sinus tachycardia 106 with no evidence of ST elevations or depressions. Pt was treated with Paxlovid. Pt will be admitted to the hospital for acute hypoxic respiratory failure in the setting of COPD exacerbation secondary to COVID infection. Review of Systems Review of Systems: Worsening generalized weakness Chronic shortness of breath Chronic productive cough Denies fever, chills, nausea, vomiting, abdominal pain No chest pain/pressure, palpitations Denies myalgias Yes all other systems are reviewed and are negative PENDING SALE TO [facility] Medical History Anxiety Back pain COPD (chronic obstructive pulmonary disease) COPD exacerbation Depression History of non-ST elevation myocardial infarction (NSTEMI) (~2021) HTN (hypertension) Hyperlipidemia Hypoxemia Mass of left lung Osteoporosis (~2016) Respiratory failure with hypoxia Smoker Tachycardia Tubular adenoma of colon (~2003) Surgical History History of cardiac cath History of colonoscopy History of esophagogastroduodenoscopy (EGD) Social History Housing: House Alcohol intake: never Patient Tobacco Use Status: Current everyday Tobacco user Tobacco use type: Cigarette Cigarettes Per Day: 2 Smoked in Last 30 Days: No e-Cigarette/Vaping Use: Never Used Use of substances other than those prescribed or required for medical reasons: No Advance Directives: Yes Advance Directives on File: Yes Advance Directives Date on File: 01/01/23 Current occupational status: retired Cognitive needs: No Hearing needs: No Vision needs: Yes Meds Allergies Allergy/AdvReac Type Severity Reaction Status Date / Time buspirone [From BuSpar] Allergy Unknown Stomach Verified 12/03/22 16:22 Upset nitrofurantoin Allergy Unknown Difficulty Verified 12/03/22 16:22 Breathing, COPD exacerbation sulfamethoxazole Allergy Unknown difficulty Verified 12/03/22 16:22 [From breathing, Sulfamethoxazole-Trimethoprim] COPD exacerbation trimethoprim Allergy Unknown difficulty Verified 12/03/22 16:22 [From breathing, Sulfamethoxazole-Trimethoprim] COPD exacerbation bupropion [From Wellbutrin] AdvReac Unknown insomnia Verified 12/03/22 16:22 fluoxetine [Prozac] AdvReac Unknown anxiety Verified 12/03/22 16:22 sertraline [Zoloft] AdvReac Unknown stomach Verified 12/03/22 16:22 upset Statins Depletion Allergy Unknown statin Uncoded 12/03/22 16:22 intolerant Active Medications: Current Medications Nirmatrelvir/Ritonavir (Nirmatrelvir/Ritonavir 300/100 3 Tab Dose) 3 tab PO BID MCKENNA Stop: 01/06/23 09:01 Last Admin: 01/01/23 15:47 Dose: 3 tab Pharmacy Consult (Consult Rx Perform Med Rec) 1 each MISCELLANE ONCE PRN PRN Reason: Consult order Home Medications Medication Instructions Recorded Confirmed Last Taken Type cholecalciferol (vitamin D3) 25 25 mcg PO BID 09/30/21 01/01/23 01/01/23 History mcg (1,000 unit) capsule fluticasone 250 mcg-salmeterol 50 1 ea inhalation BID 01/01/23 01/01/23 01/01/23 History mcg/dose blistr powdr for inhalation (Steven Inhfeng) omeprazole 20 mg capsule,delayed 20 mg PO DAILY@0630 01/01/23 01/01/23 01/01/23 History release tiotropium bromide 18 mcg capsule 1 cap inhalation DAILY@1500 01/01/23 01/01/23 12/31/22 History with inhalation device Physical Exam Vital Signs and Narrative: Vital Signs: Last Vital Signs Temp 98.0 F 01/01/23 13:49 Pulse 113 H 01/01/23 16:01 Resp 20 01/01/23 13:49 BP 120/52 L 01/01/23 13:49 Pulse Ox 100 01/01/23 16:01 O2 Del Method Nasal Cannula 01/01/23 13:49 O2 Flow Rate 4 01/01/23 13:49 Oxygen Flow Rate 4 01/01/23 13:42 BMI result Body Mass Index 20.9 Constitutional: Alert, frail and weak-looking, no acute distress. Mental Status: Oriented to person, place and time. Eyes: Pupils are equal, round, and reactive to light. Ear, Nose, and Throat: Oropharynx clear, mucous membranes moist. Ears and nose without deformities. Trachea midline. Respiratory: Speaking in full sentences. Diffuse expiratory wheezes bilaterally. Occasional wet-sounding cough noted. Cardiovascular: S1, S2 regular. No murmurs, rubs, or gallops. Gastrointestinal: Abdomen soft, non-tender, non-distended. Normal bowel sounds. Neurologic: Cranial nerves II-XII are grossly intact bilaterally. No focal neurological deficits. Moves all extremities spontaneously. Skin: No rashes or lesions noted. Musculoskeletal: No cyanosis or clubbing. Extremities: No edema. Psychiatric: Normal mood and affect. Results Labs 01/01/23 13:59 01/01/23 13:59 Labs: Laboratory Results - last 24 hr 01/01/23 01/01/23 01/01/23 13:59 13:59 14:05 MCV 96.4 MCH 29.6 MCHC 30.7 L RDW 15.4 Plt Count 245 MPV 9.8 Immature Gran % (Auto) 1.4 H Neut % (Auto) 80.0 H Lymph % (Auto) 8.5 L [place] % (Auto) 9.9 Eos % (Auto) 0.1 Baso % (Auto) 0.1 Lymph # (Auto) 0.7 L [place] # (Auto) 0.8 Eos # (Auto) 0.0 Baso # (Auto) 0.0 Abs Immat Gran (auto) 0.11 H Absolute Neuts (auto) 6.2 Absolute Nucleated RBC 0.000 Nucleated RBC % (auto) 0.0 Anion Gap 17 Estim Creat Clear Calc 40.0 Estimated GFR 59 Random Glucose 88 Lactic Acid 1.0 Calcium 9.1 D Magnesium 1.8 Total Bilirubin 0.3 AST 15 ALT 10 Alkaline Phosphatase 122 H Total Protein 6.1 L Albumin 3.4 L COVID-19 (IVANA) COVID-19 Clin Com 01/01/23 14:24 MCV MCH MCHC RDW Plt Count MPV Immature Gran % (Auto) Neut % (Auto) Lymph % (Auto) [place] % (Auto) Eos % (Auto) Baso % (Auto) Lymph # (Auto) [place] # (Auto) Eos # (Auto) Baso # (Auto) Abs Immat Gran (auto) Absolute Neuts (auto) Absolute Nucleated RBC Nucleated RBC % (auto) Anion Gap Estim Creat Clear Calc Estimated GFR Random Glucose Lactic Acid Calcium Magnesium Total Bilirubin AST ALT Alkaline Phosphatase Total Protein Albumin COVID-19 (IVANA) Negative COVID-19 Clin Com See Note Imaging Radiologist's Impressions: Impressions Chest X-Ray 01/01/23 14:57 IMPRESSION: Worsening left upper lobe and newly developing right mid and lower lung zone airspace opacities 11/29/2022. Assessment and Plan (1) Generalized weakness: Status: Acute (2) Hypoxia: Status: Acute (3) COPD exacerbation: Status: Acute (4) COVID: Status: Acute Plan Pt is a 72-year-old female with a PMH significant for?moderately severe COPD on 3L home O2, upper left lobe lung cancer declining radiation or chemo, HTN, HLD, GERD, hx heavy tobacco use, and anxiety who presents to the ED with?worsening generalized weakness during the past 24-48 hours. Pt will be admitted to the hospital for acute hypoxic respiratory failure in the setting of COPD exacerbation secondary to COVID infection. Acute hypoxic respiratory failure in the setting of COPD exacerbation secondary to COVID infection Patient desatted as low as 72% on RA with minimal exertion Patient tested positive yesterday and this morning with home COVID testing Initially tested negative here at the hospital with IVANA test but tested positive with PCR Continue Paxlovid Duonebs, dexamethasone 6mg IV Continue home inhalers Titrate supplemental O2 to >92%, wean as tolerated Contact and airborne precautions Monitor respiratory status Viral sepsis No evidence of bacterial infection Tachypnea and tachycardia likely all due to viral infection HTN BP soft, hold antihypertensives for now Resume as necessary GERD Continue omeprazole Anxiety Continue home meds Full Code Attending:?Dr. Sultana DVT Prophylaxis: Lovenox Pt will require a hospitalization of at least two nights for treatment of?acute hypoxic respiratory failure in the setting of COPD exacerbation secondary to COVID infection. Time Spent With Patient Time: Total time managing care of this patient today ____ minutes. Quality Stroke Does the patient have a stroke diagnosis?: No VTE Prior VTE?: No VTE Risk Level:: Medical - moderate - high VTE Device Contraindication: Treatment Not Indicated VTE Drug Contraindication: N/A - Med Ordered
--- NOTE | 2023-01-01 17:51 | PHA.MEDREC ---
Pharmacy Consult ? Medication Reconciliation Pharmacy has completed the medication reconciliation.Spoke to pt daughter Estela ([phone]) and she reviewed home med list.
[2023-01-01] MEDS: Enoxaparin Sodium 40 MG/0.4 ML SYRINGE SUBCUT (18:21)
[2023-01-01 18:27] LABS: Influenza A PCR NEGATIVE (Negative); Influenza B PCR NEGATIVE (Negative); Resp Syncy Virus RNA Qual PCR NEGATIVE (Negative); SARS COV2 PCR INHOUSE POSITIVE (Negative)
[2023-01-01] MEDS: Albuterol/Iprat 2.5/0.5MG 3 ML AMPUL.NEB INHALE (18:58)
[2023-01-01] MEDS: dexAMETHasone sod phosphate 4 MG/ML VIAL 6 MG IVPUSH (19:45)
--- NOTE | 2023-01-01 20:24 | PC.NURSE ---
Nurse to Nurse given to Kimber. She will be transported by quality nurse, Ganesh
[2023-01-01 20:55] LABS: Procalcitonin 0.34 ng/mL
--- NOTE | 2023-01-01 22:17 | PC.NURSE ---
BG 358, Will be giving 25u lantus and 10u lispro per sc. MD Alvarez notified per protocol. No new orders.
[2023-01-02] VITALS (9 sets, daily range): BP systolic 120–154; BP diastolic 57–73; PULSE 80–105; RESP 16–19; TEMP 36.3–37.1; O2SAT 90–100
--- NOTE | 2023-01-02 05:15 | PC.NURSE ---
Pt having 3-4 runs of vtach. not sustaining, asymptomatic, sleeping. BP 128/78, 96% 3L, HR 61. MD Alvarez notifed, no new orders.
[2023-01-02 07:08] LABS: Hematocrit 32.5 % (37.0-47.0); Hemoglobin 9.9 g/dl (12.0-16.0); Mean Corpuscular HGB Conc 30.5 g/dl (31.0-35.0); Mean Corpuscular Volume 95.3 fL (80.0-98.0); Platelet Count 243 X10*3/uL (160-400); Red Blood Count 3.41 X10*6/uL (4.20-5.50); Red Cell Distribution Width 14.9 % (11.0-16.0); White Blood Count 5.5 X10*3/uL (4.8-10.8)
[2023-01-02 07:27] LABS: Anion Gap 18 (12-20); Blood Urea Nitrogen 18 mg/dL (9-16); Calcium 8.7 mg/dL (8.4-10.2); Carbon Dioxide 26 mmol/L (22-29); Chloride 94 mmol/L (96-108); Creatinine Clr Calc Pharmacy 45.9; Estimated Glomerular Filt Rate > 60; Glucose Random 119 mg/dL (60-115); Potassium 4.4 mmol/L (3.3-5.1); Sodium 134 mmol/L (135-145)
[2023-01-02] MEDS: Albuterol/Iprat 2.5/0.5MG 3 ML AMPUL.NEB INHALE ×4 (07:37→19:10)
--- NOTE | 2023-01-02 09:51 | HO.PM.IMPN ---
Subjective Subjective Date of Service: 01/02/23 Interval History: no sob, feeling weak Physical Exam Vital Signs: Vital Signs: Last Vital Signs Temp 97.9 F 01/02/23 07:42 Pulse 80 01/02/23 07:42 Resp 16 01/02/23 07:42 BP 120/57 L 01/02/23 07:42 Pulse Ox 100 01/02/23 07:42 O2 Del Method Nasal Cannula 01/02/23 07:42 O2 Flow Rate 2 01/02/23 07:42 Oxygen Flow Rate 4 01/01/23 13:42 BMI result Body Mass Index 20.8 General: AO X 3, no acute distress Resp: CTA bilateral, no accessory muscles used CVS: S1,S2,RRR GI: soft, non tender, non distended Neuro: motor grossly intact, alert Psych: appropriate affect, appropriate insight Objective Data Active Medications Acetaminophen (Acetaminophen 325 Mg Tablet) 650 mg PO Q6H PRN PRN Reason: Pain, Mild (Pain Scale 1-3) Albuterol/Ipratropium (Albuterol/Iprat 2.5/0.5mg 3 Ml Ampul.Neb) 3 ml INHALE RQ4H WHILE AWAKE [facility] Last Admin: 01/02/23 07:37 Dose: 3 ml Documented By: LIANET Alprazolam (Alprazolam 0.5 Mg Tablet) 0.5 mg PO BID [facility] Dexamethasone Sodium Phosphate (Dexamethasone Sod Phosphate 4 Mg/Ml Vial) 6 mg IVPUSH DAILY [facility] Last Admin: 01/01/23 19:45 Dose: 6 mg Documented By: DEBBIE Docusate Sodium (Docusate Sodium 100 Mg Capsule) 100 mg PO DAILY PRN PRN Reason: Constipation Enoxaparin Sodium (Enoxaparin Sodium 40 Mg/0.4 Ml Syringe) 40 mg SUBCUT Q24H [facility] Last Admin: 01/01/23 18:21 Dose: 40 mg Documented By: KOKO Nirmatrelvir/Ritonavir (Nirmatrelvir/Ritonavir 300/100 3 Tab Dose) 3 tab PO BID [facility] Stop: 01/06/23 09:01 Last Admin: 01/02/23 00:16 Dose: Not Given Documented By: PATRICK Non-Admin Reason: Med Not Available Omeprazole (Omeprazole 20 Mg Juwan.) 20 mg PO DAILY@0630 [facility] Ondansetron HCl (Ondansetron Hcl 4 Mg/2 Ml Vial) 4 mg IVPUSH Q8H PRN PRN Reason: Nausea and Vomiting Pharmacy Consult (Consult Rx Perform Med Rec) 1 each MISCELLANE ONCE PRN PRN Reason: Consult order Sodium Chloride (0.9 % Sodium Chloride Flush 3 Ml Syringe) 3 ml IVFLUSH QSHIFT [facility] Last Admin: 01/02/23 00:18 Dose: Not Given Documented By: PATRICK Non-Admin Reason: Previously Administered Vitamin D (Cholecalciferol (Vitamin D3) 25 Mcg Tablet) 25 mcg PO BID [facility] Labs 01/02/23 06:37 01/02/23 06:37 Labs: Laboratory Results - last 24 hr 01/01/23 01/01/23 01/01/23 13:59 13:59 14:05 MCV 96.4 MCH 29.6 MCHC 30.7 L RDW 15.4 Plt Count 245 MPV 9.8 Immature Gran % (Auto) 1.4 H Neut % (Auto) 80.0 H Lymph % (Auto) 8.5 L [place] % (Auto) 9.9 Eos % (Auto) 0.1 Baso % (Auto) 0.1 Lymph # (Auto) 0.7 L [place] # (Auto) 0.8 Eos # (Auto) 0.0 Baso # (Auto) 0.0 Abs Immat Gran (auto) 0.11 H Absolute Neuts (auto) 6.2 Absolute Nucleated RBC 0.000 Nucleated RBC % (auto) 0.0 Anion Gap 17 Estim Creat Clear Calc 40.0 Estimated GFR 59 Random Glucose 88 Lactic Acid 1.0 Calcium 9.1 D Magnesium 1.8 Total Bilirubin 0.3 AST 15 ALT 10 Alkaline Phosphatase 122 H Total Protein 6.1 L Albumin 3.4 L Procalcitonin 0.34 COVID-19 (IVANA) COVID-19 Clin Com Influenza Type A (PCR) Influenza Type B (PCR) RSV RNA Qual (PCR) SARS-CoV-2 RNA (RT-PCR) 01/01/23 01/01/23 01/02/23 14:24 17:31 06:37 MCV 95.3 MCH 29.0 MCHC 30.5 L RDW 14.9 Plt Count 243 MPV 10.0 Immature Gran % (Auto) Neut % (Auto) Lymph % (Auto) [place] % (Auto) Eos % (Auto) Baso % (Auto) Lymph # (Auto) [place] # (Auto) Eos # (Auto) Baso # (Auto) Abs Immat Gran (auto) Absolute Neuts (auto) Absolute Nucleated RBC 0.000 Nucleated RBC % (auto) 0.0 Anion Gap Estim Creat Clear Calc Estimated GFR Random Glucose Lactic Acid Calcium Magnesium Total Bilirubin AST ALT Alkaline Phosphatase Total Protein Albumin Procalcitonin COVID-19 (IVANA) Negative COVID-19 Clin Com See Note Influenza Type A (PCR) NEGATIVE Influenza Type B (PCR) NEGATIVE RSV RNA Qual (PCR) NEGATIVE SARS-CoV-2 RNA (RT-PCR) POSITIVE A 01/02/23 06:37 MCV MCH MCHC RDW Plt Count MPV Immature Gran % (Auto) Neut % (Auto) Lymph % (Auto) [place] % (Auto) Eos % (Auto) Baso % (Auto) Lymph # (Auto) [place] # (Auto) Eos # (Auto) Baso # (Auto) Abs Immat Gran (auto) Absolute Neuts (auto) Absolute Nucleated RBC Nucleated RBC % (auto) Anion Gap 18 Estim Creat Clear Calc 45.9 Estimated GFR > 60 Random Glucose 119 H Lactic Acid Calcium 8.7 Magnesium Total Bilirubin AST ALT Alkaline Phosphatase Total Protein Albumin Procalcitonin COVID-19 (IVANA) COVID-19 Clin Com Influenza Type A (PCR) Influenza Type B (PCR) RSV RNA Qual (PCR) SARS-CoV-2 RNA (RT-PCR) Assessment and Plan (1) COVID: Status: Acute Plan 72F PMH chronic hypoxic respiratory failure on 3L home O2 due to COPD, suspected lung cancer (patient has refused work up or treatement), HTN, HLD, GERD, anxiety, presented with fevers, generalized weakness, found to have covid viral sepsis due to covid paxlovid, decadron chronic hypoxic respiratory failure due to COPD with acute decompensation due to covid at baseline o2, continue steroids htn holding diltiazem and lisinpirl for low normal bp suspected lung cancer patient not interested in further work up or treatment anxiety xanax full code dvt prophylaxis - lovenox reason for continued hospitalization:weakness Time Spent With Patient Time: Total time managing care of this patient today ____ minutes. Quality Stroke Does the patient have a stroke diagnosis?: No VTE Prior VTE?: No VTE Risk Level:: Medical - moderate - high VTE Device Contraindication: Treatment Not Indicated VTE Drug Contraindication: N/A - Med Ordered
[2023-01-02] MEDS: dexAMETHasone sod phosphate 4 MG/ML VIAL 6 MG IVPUSH (10:27)
[2023-01-02] MEDS: 0.9 % Sodium Chloride Flush 3 ML SYRINGE IVFLUSH ×3 (10:28→20:45)
[2023-01-02] MEDS: ALPRAZolam 0.5 MG TABLET PO ×2 (12:21→20:45)
--- NOTE | 2023-01-02 12:43 | P.CDIM_ITS ---
PROVIDER RESPONSE TEXT: To clarify, the appropriate diagnosis supported by the clinical indicators: Diagnosis was ruled out QUERY TEXT: PHYSICIAN'S DOCUMENTATION REQUEST Date of Query: 01/02/2023 12:09 PM EDT Patient Name: Kadi Wood Admit Date: 01/01/2023 Dear Enrique Sultana, A review of the medical record indicates additional documentation may be needed. Please review below and update the documentation accordingly. Clinical Indicators: ED: Clinical impression - Pneumonia New air space consolidation left lung will order Azithromycin. Tested Covid positive/viral sepsis due to Covid/acute on chronic respiratory failure/suspected lung c ancer. The diagnosis of Pneumonia was documented in the ED but is not consistently noted in subsequent docum entation. Please clarify the following: Diagnosis was present on admission and is now resolved Diagnosis was present on admission and is still being monitored, evaluated, or treated Diagnosis was ruled out Diagnosis is still a likely, suspected, probable diagnosis Other (explain)Clinically unable to determine (explain)Thank you, Piedad Elliott, CCS, CDIS Use of terms such as suspected, likely, concern for, or probable (associated with a specific diagnosi s that is being evaluated, monitored, or treated as if it exists) are acceptable and can be coded in the inpatient se tting, when documented at the time of discharge. Please use your independent medical judgment in providing your response. THIS QUERY IS PART OF THE PERMANENT MEDICAL RECORD
--- NOTE | 2023-01-02 14:49 | MHC.CM.PN ---
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
[2023-01-02] MEDS: Enoxaparin Sodium 40 MG/0.4 ML SYRINGE SUBCUT (18:10)
[2023-01-02] MEDS: Cholecalciferol (Vitamin D3) 25 MCG TABLET PO (20:45)
[2023-01-03 03:47] VITALS: BP 154/82; PULSE 97; RESP 15; TEMP 36.1; O2SAT 90
[2023-01-03] MEDS: Omeprazole 20 MG CAPSULE.DR PO (05:10)
[2023-01-03 06:30] LABS: Hematocrit 32.2 % (37.0-47.0); Hemoglobin 10.5 g/dl (12.0-16.0); Mean Corpuscular HGB Conc 32.6 g/dl (31.0-35.0); Mean Corpuscular Hemoglobin 29.8 pg (27.0-33.0); Mean Corpuscular Volume 91.5 fL (80.0-98.0); Mean Platelet Volume 10.2 fL (9.4-12.3); Platelet Count 256 X10*3/uL (160-400); Red Blood Count 3.52 X10*6/uL (4.20-5.50); Red Cell Distribution Width 14.5 % (11.0-16.0); White Blood Count 7.3 X10*3/uL (4.8-10.8)
[2023-01-03 06:47] LABS: Anion Gap 17 (12-20); Blood Urea Nitrogen 18 mg/dL (9-16); C Reactive Protein 4.74 mg/dL (< or = 0.50); Carbon Dioxide 25 mmol/L (22-29); Chloride 88 mmol/L (96-108); Creatinine Clr Calc Pharmacy 42.2; Estimated Glomerular Filt Rate > 60; Glucose Fasting 83 mg/dL (60-99); Potassium 4.3 mmol/L (3.3-5.1); Sodium 126 mmol/L (135-145)
[2023-01-03] MEDS: Albuterol/Iprat 2.5/0.5MG 3 ML AMPUL.NEB INHALE ×2 (07:28→19:33)
[2023-01-03 07:29] VITALS: RESP 18; O2SAT 93
[2023-01-03 08:00] VITALS: BP 162/89; PULSE 107; RESP 16; TEMP 36.4; O2SAT 93
[2023-01-03] MEDS: Cholecalciferol (Vitamin D3) 25 MCG TABLET PO ×2 (08:56→22:32)
[2023-01-03] MEDS: ALPRAZolam 0.5 MG TABLET PO ×2 (08:56→22:32)
[2023-01-03] MEDS: dexAMETHasone sod phosphate 4 MG/ML VIAL 6 MG IVPUSH (08:57)
[2023-01-03] MEDS: 0.9 % Sodium Chloride 1,000 ML 100 ML IVCONT (08:58)
--- NOTE | 2023-01-03 10:41 | P.PNIM_ITS ---
Subjective Subjective Date of Service: 01/03/23 Interval History: no sob, feeling weak Physical Exam Vital Signs: Vital Signs: Last Vital Signs Temp 97.5 F 01/03/23 08:00 Pulse 107 H 01/03/23 08:00 Resp 16 01/03/23 08:00 BP 162/89 H 01/03/23 08:00 Pulse Ox 93 01/03/23 08:00 O2 Del Method Nasal Cannula 01/03/23 08:00 O2 Flow Rate 2 01/03/23 08:00 Oxygen Flow Rate 4 01/01/23 13:42 BMI result Body Mass Index 20.8 General: AO X 3, no acute distress Resp: CTA bilateral, no accessory muscles used CVS: S1,S2,RRR GI: soft, non tender, non distended Neuro: motor grossly intact, alert Psych: appropriate affect, appropriate insight Objective Data Active Medications Acetaminophen (Acetaminophen 325 Mg Tablet) 650 mg PO Q6H PRN PRN Reason: Pain, Mild (Pain Scale 1-3) Albuterol/Ipratropium (Albuterol/Iprat 2.5/0.5mg 3 Ml Ampul.Neb) 3 ml INHALE RQ4H WHILE AWAKE [facility] Last Admin: 01/03/23 07:28 Dose: 3 ml Documented By: EDILSON Alprazolam (Alprazolam 0.5 Mg Tablet) 0.5 mg PO BID [facility] Last Admin: 01/03/23 08:56 Dose: 0.5 mg Documented By: JUSTIN Dexamethasone Sodium Phosphate (Dexamethasone Sod Phosphate 4 Mg/Ml Vial) 6 mg IVPUSH DAILY [facility] Last Admin: 01/03/23 08:57 Dose: 6 mg Documented By: JUSTIN Docusate Sodium (Docusate Sodium 100 Mg Capsule) 100 mg PO DAILY PRN PRN Reason: Constipation Enoxaparin Sodium (Enoxaparin Sodium 40 Mg/0.4 Ml Syringe) 40 mg SUBCUT Q24H [facility] Last Admin: 01/02/23 18:10 Dose: 40 mg Documented By: DIONY Sodium Chloride (Ns) 1,000 mls @ 100 mls/hr IVCONT .Q10H [facility] Last Admin: 01/03/23 08:58 Dose: 100 mls/hr Documented By: JUSTIN Nirmatrelvir/Ritonavir (Nirmatrelvir/Ritonavir 300/100 3 Tab Dose) 3 tab PO BID [facility] Stop: 01/06/23 09:01 Last Admin: 01/03/23 09:45 Dose: 3 tab Documented By: JUSTIN Omeprazole (Omeprazole 20 Mg Capsule.) 20 mg PO DAILY@0630 [facility] Last Admin: 01/03/23 05:10 Dose: 20 mg Documented By: CHAIM Ondansetron HCl (Ondansetron Hcl 4 Mg/2 Ml Vial) 4 mg IVPUSH Q8H PRN PRN Reason: Nausea and Vomiting Pharmacy Consult (Consult Rx Perform Med Rec) 1 each MISCELLANE ONCE PRN PRN Reason: Consult order Sodium Chloride (0.9 % Sodium Chloride Flush 3 Ml Syringe) 3 ml IVFLUSH QSHIFT [facility] Last Admin: 01/03/23 08:08 Dose: Not Given Documented By: JUSTIN Non-Admin Reason: IV Running Vitamin D (Cholecalciferol (Vitamin D3) 25 Mcg Tablet) 25 mcg PO BID [facility] Last Admin: 01/03/23 08:56 Dose: 25 mcg Documented By: JUSTIN Labs 01/03/23 05:47 01/03/23 05:47 Labs: Laboratory Results - last 24 hr 01/03/23 01/03/23 05:47 05:47 MCV 91.5 MCH 29.8 MCHC 32.6 RDW 14.5 Plt Count 256 MPV 10.2 Absolute Nucleated RBC 0.000 Nucleated RBC % (auto) 0.0 Anion Gap 17 Estim Creat Clear Calc 42.2 Estimated GFR > 60 Fasting Glucose 83 Calcium 9.0 C-Reactive Protein 4.74 H Microbiology Microbiology Results: Microbiology 01/01/23 14:24 Blood Culture - Preliminary Blood - Venous No growth after 24 hours. 01/01/23 14:24 Blood Culture - Preliminary Blood - Venous No growth after 24 hours. Assessment and Plan (1) COVID: Status: Acute Plan 72F PMH chronic hypoxic respiratory failure on 3L home O2 due to COPD, suspected lung cancer (patient has refused work up or treatement), HTN, HLD, GERD, anxiety, presented with fevers, generalized weakness, found to have covid viral sepsis due to covid paxlovid, decadron hyponatremia ?hypovoelmic will give iv ns monitor chronic hypoxic respiratory failure due to COPD with acute decompensation due to covid at baseline o2, continue steroids htn restart diltiazem and lisinopril suspected lung cancer patient not interested in further work up or treatment anxiety xanax full code dvt prophylaxis - lovenox reason for continued hospitalization:weakness Time Spent With Patient Time: Total time managing care of this patient today ____ minutes. Quality Stroke Does the patient have a stroke diagnosis?: No VTE Prior VTE?: No VTE Risk Level:: Medical - moderate - high VTE Device Contraindication: Treatment Not Indicated VTE Drug Contraindication: N/A - Med Ordered
[2023-01-03] MEDS: dilTIAZem HCL CD 120 MG CAP.ER.DEG PO (12:42)
[2023-01-03] MEDS: lisinopriL 5 MG TABLET PO (12:42)
[2023-01-03 15:49] VITALS: BP 131/65; PULSE 84; RESP 18; TEMP 37.1; O2SAT 100
[2023-01-03] MEDS: Enoxaparin Sodium 40 MG/0.4 ML SYRINGE SUBCUT (17:34)
[2023-01-03 19:33] VITALS: PULSE 86; RESP 18; O2SAT 92
[2023-01-03 20:00] VITALS: BP 113/51; PULSE 112; RESP 18; TEMP 35.9; O2SAT 96
[2023-01-04] VITALS (9 sets, daily range): BP systolic 88–124; BP diastolic 47–70; PULSE 82–91; RESP 14–18; TEMP 35.6–36.2; O2SAT 90–99
[2023-01-04] MEDS: 0.9 % Sodium Chloride 1,000 ML 100 ML IVCONT ×3 (03:00→16:00)
[2023-01-04 06:07] LABS: Hematocrit 29.2 % (37.0-47.0); Hemoglobin 9.3 g/dl (12.0-16.0); Mean Corpuscular HGB Conc 31.8 g/dl (31.0-35.0); Mean Corpuscular Hemoglobin 29.6 pg (27.0-33.0); Mean Platelet Volume 10.1 fL (9.4-12.3); Platelet Count 254 X10*3/uL (160-400); Red Blood Count 3.14 X10*6/uL (4.20-5.50); Red Cell Distribution Width 14.5 % (11.0-16.0); White Blood Count 9.2 X10*3/uL (4.8-10.8)
[2023-01-04 06:22] LABS: Anion Gap 17 (12-20); Blood Urea Nitrogen 20 mg/dL (9-16); Calcium 8.4 mg/dL (8.4-10.2); Carbon Dioxide 22 mmol/L (22-29); Chloride 94 mmol/L (96-108); Creatinine Clr Calc Pharmacy 49.6; Estimated Glomerular Filt Rate > 60; Glucose Fasting 61 mg/dL (60-99); Potassium 3.9 mmol/L (3.3-5.1); Sodium 129 mmol/L (135-145)
[2023-01-04] MEDS: Omeprazole 20 MG CAPSULE.DR PO (06:55)
--- NOTE | 2023-01-04 08:16 | HO.PM.IMPN ---
Subjective Subjective Date of Service: 01/04/23 Interval History: weak Physical Exam Vital Signs: Vital Signs: Last Vital Signs Temp 97.0 F 01/04/23 04:00 Pulse 91 01/04/23 04:00 Resp 17 01/04/23 04:00 BP 113/47 L 01/04/23 04:00 Pulse Ox 94 01/04/23 04:00 O2 Del Method Nasal Cannula 01/04/23 04:00 O2 Flow Rate 2 01/04/23 04:00 Oxygen Flow Rate 4 01/01/23 13:42 BMI result Body Mass Index 20.8 General: AO X 3, no acute distress Resp: CTA bilateral, no accessory muscles used CVS: S1,S2,RRR GI: soft, non tender, non distended Neuro: motor grossly intact, alert Psych: appropriate affect, appropriate insight Objective Data Active Medications Acetaminophen (Acetaminophen 325 Mg Tablet) 650 mg PO Q6H PRN PRN Reason: Pain, Mild (Pain Scale 1-3) Albuterol/Ipratropium (Albuterol/Iprat 2.5/0.5mg 3 Ml Ampul.Neb) 3 ml INHALE RQ4H WHILE AWAKE [facility] Last Admin: 01/04/23 07:32 Dose: Not Given Documented By: EDILSON Non-Admin Reason: pt refused wants to sleep Alprazolam (Alprazolam 0.5 Mg Tablet) 0.5 mg PO BID [facility] Last Admin: 01/03/23 22:32 Dose: 0.5 mg Documented By: TANVIR Dexamethasone Sodium Phosphate (Dexamethasone Sod Phosphate 4 Mg/Ml Vial) 6 mg IVPUSH DAILY [facility] Last Admin: 01/03/23 08:57 Dose: 6 mg Documented By: JUSTIN Diltiazem HCl (Diltiazem Hcl Cd 120 Mg Cap.Er.Deg) 120 mg PO DAILY [facility]; Protocol Last Admin: 01/03/23 12:42 Dose: 120 mg Documented By: JUSTIN Docusate Sodium (Docusate Sodium 100 Mg Capsule) 100 mg PO DAILY PRN PRN Reason: Constipation Enoxaparin Sodium (Enoxaparin Sodium 40 Mg/0.4 Ml Syringe) 40 mg SUBCUT Q24H [facility] Last Admin: 01/03/23 17:34 Dose: 40 mg Documented By: JUSTIN Sodium Chloride (Ns) 1,000 mls @ 100 mls/hr IVCONT .Q10H [facility] Last Admin: 01/04/23 03:00 Dose: 100 mls/hr Documented By: TANVIR Lisinopril (Lisinopril 5 Mg Tablet) 5 mg PO DAILY [facility]; Protocol Last Admin: 01/03/23 12:42 Dose: 5 mg Documented By: JUSTIN Nirmatrelvir/Ritonavir (Nirmatrelvir/Ritonavir 300/100 3 Tab Dose) 3 tab PO BID [facility] Stop: 01/06/23 09:01 Last Admin: 01/03/23 22:32 Dose: 3 tab Documented By: TANVIR Omeprazole (Omeprazole 20 Mg Capsule.Dr) 20 mg PO DAILY@0630 [facility] Last Admin: 01/04/23 06:55 Dose: 20 mg Documented By: TANVIR Ondansetron HCl (Ondansetron Hcl 4 Mg/2 Ml Vial) 4 mg IVPUSH Q8H PRN PRN Reason: Nausea and Vomiting Pharmacy Consult (Consult Rx Perform Med Rec) 1 each MISCELLANE ONCE PRN PRN Reason: Consult order Sodium Chloride (0.9 % Sodium Chloride Flush 3 Ml Syringe) 3 ml IVFLUSH QSHIFT [facility] Last Admin: 01/04/23 00:00 Dose: Not Given Documented By: TANVIR Non-Admin Reason: IV Running Tiotropium [place] (Tiotropium [place] 2.5 Mcg Inhaler) 1 puff INHALE RDAILY [facility] Last Admin: 01/04/23 07:32 Dose: Not Given Documented By: EDILSON Non-Admin Reason: Patient Refused Vitamin D (Cholecalciferol (Vitamin D3) 25 Mcg Tablet) 25 mcg PO BID [facility] Last Admin: 01/03/23 22:32 Dose: 25 mcg Documented By: TANVIR Labs 01/04/23 05:57 01/04/23 05:57 Labs: Laboratory Results - last 24 hr 01/04/23 01/04/23 05:57 05:57 MCV 93.0 MCH 29.6 MCHC 31.8 RDW 14.5 Plt Count 254 MPV 10.1 Absolute Nucleated RBC 0.000 Nucleated RBC % (auto) 0.0 Anion Gap 17 Estim Creat Clear Calc 49.6 Estimated GFR > 60 Fasting Glucose 61 Calcium 8.4 D Microbiology Microbiology Results: Microbiology 01/01/23 14:24 Blood Culture - Preliminary Blood - Venous No growth after 48 hours. 01/01/23 14:24 Blood Culture - Preliminary Blood - Venous No growth after 48 hours. Assessment and Plan (1) COVID: Status: Acute Plan 72F PMH chronic hypoxic respiratory failure on 3L home O2 due to COPD, suspected lung cancer (patient has refused work up or treatement), HTN, HLD, GERD, anxiety, presented with fevers, generalized weakness, found to have covid viral sepsis due to covid paxlovid, decadron hyponatremia ?hypovoelmic improved with ivf chronic hypoxic respiratory failure due to COPD with acute decompensation due to covid at baseline o2, continue steroids htn diltiazem and lisinopril suspected lung cancer patient not interested in further work up or treatment anxiety xanax full code dvt prophylaxis - lovenox reason for continued hospitalization:weakness Time Spent With Patient Time: Total time managing care of this patient today ____ minutes. Quality Stroke Does the patient have a stroke diagnosis?: No VTE Prior VTE?: No VTE Risk Level:: Medical - moderate - high VTE Device Contraindication: Treatment Not Indicated VTE Drug Contraindication: N/A - Med Ordered
[2023-01-04] MEDS: dexAMETHasone sod phosphate 4 MG/ML VIAL 6 MG IVPUSH (10:31)
[2023-01-04] MEDS: Acetaminophen 325 MG TABLET 650 MG PO (10:31)
[2023-01-04] MEDS: lisinopriL 5 MG TABLET PO (10:32)
[2023-01-04] MEDS: dilTIAZem HCL CD 120 MG CAP.ER.DEG PO (10:32)
[2023-01-04] MEDS: Cholecalciferol (Vitamin D3) 25 MCG TABLET PO ×2 (10:33→22:55)
[2023-01-04] MEDS: ALPRAZolam 0.5 MG TABLET PO ×2 (10:33→22:55)
[2023-01-04] MEDS: Albuterol/Iprat 2.5/0.5MG 3 ML AMPUL.NEB INHALE ×2 (15:18→19:29)
[2023-01-04] MEDS: Enoxaparin Sodium 40 MG/0.4 ML SYRINGE SUBCUT (17:39)
[2023-01-04] MEDS: ALPRAZolam 0.25 MG TABLET PO (18:15)
[2023-01-05] VITALS (8 sets, daily range): BP systolic 95–128; BP diastolic 53–58; PULSE 70–89; RESP 16–22; TEMP 35.8–36.4; O2SAT 94–100
--- NOTE | 2023-01-05 00:43 | PC.NURSE ---
Assumed care at 07:00. Patient alert, oriented x4, can be forgetful/vague, drowsy at times. Unable to obtain UA today, patient voiding via purewick, though said she could ring for bedpan. Patient with report of pain at left medial tarsophalangeal joint, Small open area, foam applied, tylenol with effect this morning. Patient reported anxiety in left leg, and in discussion with her daughter and patient, they report that patient has restless leg syndrome, not in her history, reported to MD. New order for extra dose of xanax, adminitered with effect. Expiratory rhonchi throughout. Patient on 2 LPM, no signs of respiratory distress or increased WOB. Patient's daughter, Francesca, was in, and not wearing any PPE, and she was educated about risks and the necessity to use precautions and hand hygiene, but she reports she just had COVID 2 weeks ago, yet would wear the gown and wash hands on exiting room. Will continue to educate. Patient with moist nonproductive cough, had spiriva adjusted to time she takes at home by pharmacy, and discussed daughter's concern that patient might not be expectorating well with MD.
[2023-01-05] MEDS: 0.9 % Sodium Chloride 1,000 ML 100 ML IVCONT (00:51)
[2023-01-05] MEDS: Omeprazole 20 MG CAPSULE.DR PO (05:59)
[2023-01-05] MEDS: Albuterol/Iprat 2.5/0.5MG 3 ML AMPUL.NEB INHALE ×3 (07:35→21:17)
--- NOTE | 2023-01-05 09:35 | P.PNIM_ITS ---
Subjective Subjective Date of Service: 01/05/23 Interval History: weak Physical Exam Vital Signs: Vital Signs: Last Vital Signs Temp 96.8 F 01/05/23 07:25 Pulse 89 01/05/23 07:36 Resp 16 01/05/23 07:36 BP 115/53 L 01/05/23 07:25 Pulse Ox 99 01/05/23 07:25 O2 Del Method Nasal Cannula 01/05/23 07:25 O2 Flow Rate 2 01/05/23 07:25 Oxygen Flow Rate 4 01/01/23 13:42 BMI result Body Mass Index 20.8 General: AO X 3, no acute distress Resp: CTA bilateral, no accessory muscles used CVS: S1,S2,RRR GI: soft, non tender, non distended Neuro: motor grossly intact, alert Psych: appropriate affect, appropriate insight Objective Data Active Medications Acetaminophen (Acetaminophen 325 Mg Tablet) 650 mg PO Q6H PRN PRN Reason: Pain, Mild (Pain Scale 1-3) Last Admin: 01/04/23 10:31 Dose: 650 mg Documented By: ARTIE Albuterol/Ipratropium (Albuterol/Iprat 2.5/0.5mg 3 Ml Ampul.Neb) 3 ml INHALE RQ4H WHILE AWAKE [facility] Last Admin: 01/05/23 07:35 Dose: 3 ml Documented By: EDILSON Alprazolam (Alprazolam 0.5 Mg Tablet) 0.5 mg PO BID [facility] Last Admin: 01/04/23 22:55 Dose: 0.5 mg Documented By: ARTIE Dexamethasone Sodium Phosphate (Dexamethasone Sod Phosphate 4 Mg/Ml Vial) 6 mg IVPUSH DAILY [facility] Last Admin: 01/04/23 10:31 Dose: 6 mg Documented By: ARTIE Diltiazem HCl (Diltiazem Hcl Cd 120 Mg Cap.Er.Deg) 120 mg PO DAILY [facility]; Protocol Last Admin: 01/04/23 10:32 Dose: 120 mg Documented By: ARTIE Docusate Sodium (Docusate Sodium 100 Mg Capsule) 100 mg PO DAILY PRN PRN Reason: Constipation Enoxaparin Sodium (Enoxaparin Sodium 40 Mg/0.4 Ml Syringe) 40 mg SUBCUT Q24H [facility] Last Admin: 01/04/23 17:39 Dose: 40 mg Documented By: ARTIE Lisinopril (Lisinopril 5 Mg Tablet) 5 mg PO DAILY [facility]; Protocol Last Admin: 01/04/23 10:32 Dose: 5 mg Documented By: ARTIE Nirmatrelvir/Ritonavir (Nirmatrelvir/Ritonavir 300/100 3 Tab Dose) 3 tab PO BID [facility] Stop: 01/06/23 09:01 Last Admin: 01/04/23 22:54 Dose: 3 tab Documented By: ARTIE Omeprazole (Omeprazole 20 Mg Capsule.) 20 mg PO DAILY@0630 [facility] Last Admin: 01/05/23 05:59 Dose: 20 mg Documented By: THOR Ondansetron HCl (Ondansetron Hcl 4 Mg/2 Ml Vial) 4 mg IVPUSH Q8H PRN PRN Reason: Nausea and Vomiting Pharmacy Consult (Consult Rx Perform Med Rec) 1 each MISCELLANE ONCE PRN PRN Reason: Consult order Sodium Chloride (0.9 % Sodium Chloride Flush 3 Ml Syringe) 3 ml IVFLUSH QSHIFT [facility] Last Admin: 01/05/23 00:51 Dose: Not Given Documented By: THOR Non-Admin Reason: IV Running Tiotropium Fowler (Tiotropium Fowler 2.5 Mcg Inhaler) 1 puff INHALE RDAILY@1500 [facility] Last Admin: 01/04/23 15:20 Dose: 1 puff Documented By: EDILSON Vitamin D (Cholecalciferol (Vitamin D3) 25 Mcg Tablet) 25 mcg PO BID [facility] Last Admin: 01/04/23 22:55 Dose: 25 mcg Documented By: ARTIE Labs 01/04/23 05:57 01/04/23 05:57 Assessment and Plan (1) COVID: Status: Acute Plan 72F PMH chronic hypoxic respiratory failure on 3L home O2 due to COPD, suspected lung cancer (patient has refused work up or treatement), HTN, HLD, GERD, anxiety, presented with fevers, generalized weakness, found to have covid viral sepsis due to covid paxlovid, decadron hyponatremia ?hypovoelmic improved with ivf chronic hypoxic respiratory failure due to COPD with acute decompensation due to covid at baseline o2, continue steroids htn diltiazem and lisinopril suspected lung cancer patient not interested in further work up or treatment anxiety xanax full code dvt prophylaxis - lovenox reason for continued hospitalization:weakness Time Spent With Patient Time: Total time managing care of this patient today ____ minutes. Quality Stroke Does the patient have a stroke diagnosis?: No VTE Prior VTE?: No VTE Risk Level:: Medical - moderate - high VTE Device Contraindication: Treatment Not Indicated VTE Drug Contraindication: N/A - Med Ordered
[2023-01-05] MEDS: dexAMETHasone sod phosphate 4 MG/ML VIAL 6 MG IVPUSH (09:36)
[2023-01-05] MEDS: 0.9 % Sodium Chloride Flush 3 ML SYRINGE IVFLUSH ×3 (09:36→20:31)
[2023-01-05] MEDS: ALPRAZolam 0.5 MG TABLET PO ×2 (09:36→20:28)
[2023-01-05] MEDS: lisinopriL 5 MG TABLET PO (09:36)
[2023-01-05] MEDS: Cholecalciferol (Vitamin D3) 25 MCG TABLET PO ×2 (09:36→20:28)
[2023-01-05] MEDS: dilTIAZem HCL CD 120 MG CAP.ER.DEG PO (12:39)
--- NOTE | 2023-01-05 13:39 | MHC.CM.PN ---
EMR reviewed and per MD rounds, pt is not medically cleared for D/C due to weakness secondary to covid-19 infection. Per PT recommendations, they are recommending STR. Referrals placed and facilities are unable to accept pt due to positive covid test/infection. This CM met with pts beverly Palmer ([phone]) regarding preferences in facilities, #1 [facility], #2 [facility]. Daughter states she would not want her mother going to [facility], or [facility]. Per some facilities, they may be able to take her if she tests negative on day 6 (01/07), and if still positive then re-test on day 11 (01/12). CM will continue to follow.
[2023-01-05] MEDS: Enoxaparin Sodium 40 MG/0.4 ML SYRINGE SUBCUT (20:28)
[2023-01-06] VITALS (8 sets, daily range): BP systolic 106–148; BP diastolic 60–68; PULSE 82–118; RESP 15–20; TEMP 36.1–36.7; O2SAT 79–100
[2023-01-06] MEDS: Omeprazole 20 MG CAPSULE.DR PO (05:33)
--- NOTE | 2023-01-06 07:21 | HE.PHANOTE ---
Addendum entered by Katy Emanuel RPh 01/06/23 07:28: This was the dose for 01/05 @ 2100 Original Note: Received a call from RN this morning. RN stated that he only gave patient 1 pill of the patients 3 pill paxlovid dose. Told him that at this point patients dose should be skipps and continued with todays morning dose.
[2023-01-06] MEDS: Albuterol/Iprat 2.5/0.5MG 3 ML AMPUL.NEB INHALE ×3 (08:12→16:44)
--- NOTE | 2023-01-06 09:09 | P.CDIM_ITS ---
PROVIDER RESPONSE TEXT: To clarify, the appropriate diagnosis supported by the clinical indicators: Chronic hypoxic respiratory failure QUERY TEXT: PHYSICIAN'S DOCUMENTATION REQUEST Date of Query: 01/06/2023 08:35 AM EDT Patient Name: Kadi Wood Admit Date: 01/01/2023 Dear Enrique Sultana, A review of the medical record indicates additional documentation may be needed. Please review below and update the documentation accordingly. Clinical Indicators: H&P: Admitted for acute hypoxic respiratory failure and COPD exacerbation 2nd to Covid infection. COPD on 3 liters home oxygen, pt desatted to 72% on RA. PN: / - Chronic hypoxic respiratory failure due to COPD and acute decompensation due to Covid, at baseline o2, continue steroids. Clarify which of the following accurately represents the acuity of the respiratory failure: Chronic hypoxic respiratory failure Acute on chronic hypoxic respiratory failure Other please specify Other (explain)Clinically unable to determine (explain)Thank you, Piedad Elliott, CCS, CDIS Use of terms such as suspected, likely, concern for, or probable (associated with a specific diagnosi s that is being evaluated, monitored, or treated as if it exists) are acceptable and can be coded in the inpatient se tting, when documented at the time of discharge. Please use your independent medical judgment in providing your response. THIS QUERY IS PART OF THE PERMANENT MEDICAL RECORD
[2023-01-06] MEDS: dexAMETHasone sod phosphate 4 MG/ML VIAL 6 MG IVPUSH (10:32)
[2023-01-06] MEDS: Cholecalciferol (Vitamin D3) 25 MCG TABLET PO ×2 (10:32→22:04)
[2023-01-06] MEDS: lisinopriL 5 MG TABLET PO (10:32)
[2023-01-06] MEDS: dilTIAZem HCL CD 120 MG CAP.ER.DEG PO (10:32)
[2023-01-06] MEDS: ALPRAZolam 0.5 MG TABLET PO ×2 (10:32→22:04)
[2023-01-06] MEDS: 0.9 % Sodium Chloride Flush 3 ML SYRINGE IVFLUSH ×3 (10:33→22:07)
--- NOTE | 2023-01-06 11:43 | HO.PM.IMPN ---
Subjective Subjective Date of Service: 01/06/23 Interval History: no complaints Physical Exam Vital Signs: Vital Signs: Last Vital Signs Temp 96.9 F 01/06/23 07:42 Pulse 82 01/06/23 08:15 Resp 16 01/06/23 08:15 BP 148/68 H 01/06/23 07:42 Pulse Ox 94 01/06/23 07:42 O2 Del Method Nasal Cannula 01/06/23 07:42 O2 Flow Rate 2 01/06/23 07:42 Oxygen Flow Rate 4 01/01/23 13:42 BMI result Body Mass Index 20.8 General: AO X 3, no acute distress Resp: CTA bilateral, no accessory muscles used CVS: S1,S2,RRR GI: soft, non tender, non distended Neuro: motor grossly intact, alert Psych: appropriate affect, appropriate insight Objective Data Active Medications Acetaminophen (Acetaminophen 325 Mg Tablet) 650 mg PO Q6H PRN PRN Reason: Pain, Mild (Pain Scale 1-3) Last Admin: 01/04/23 10:31 Dose: 650 mg Documented By: ARTIE Albuterol/Ipratropium (Albuterol/Iprat 2.5/0.5mg 3 Ml Ampul.Neb) 3 ml INHALE RQ4H WHILE AWAKE [facility] Last Admin: 01/06/23 08:12 Dose: 3 ml Documented By: WILFREDO Alprazolam (Alprazolam 0.5 Mg Tablet) 0.5 mg PO BID [facility] Last Admin: 01/06/23 10:32 Dose: 0.5 mg Documented By: ANDI Dexamethasone Sodium Phosphate (Dexamethasone Sod Phosphate 4 Mg/Ml Vial) 6 mg IVPUSH DAILY [facility] Last Admin: 01/06/23 10:32 Dose: 6 mg Documented By: ANDI Diltiazem HCl (Diltiazem Hcl Cd 120 Mg Cap.Er.Deg) 120 mg PO DAILY [facility]; Protocol Last Admin: 01/06/23 10:32 Dose: 120 mg Documented By: ANDI Docusate Sodium (Docusate Sodium 100 Mg Capsule) 100 mg PO DAILY PRN PRN Reason: Constipation Enoxaparin Sodium (Enoxaparin Sodium 40 Mg/0.4 Ml Syringe) 40 mg SUBCUT Q24H [facility] Last Admin: 01/05/23 20:28 Dose: 40 mg Documented By: YURI Lisinopril (Lisinopril 5 Mg Tablet) 5 mg PO DAILY [facility]; Protocol Last Admin: 01/06/23 10:32 Dose: 5 mg Documented By: ANDI Omeprazole (Omeprazole 20 Mg Capsule.) 20 mg PO DAILY@0630 [facility] Last Admin: 01/06/23 05:33 Dose: 20 mg Documented By: IAIN Ondansetron HCl (Ondansetron Hcl 4 Mg/2 Ml Vial) 4 mg IVPUSH Q8H PRN PRN Reason: Nausea and Vomiting Pharmacy Consult (Consult Rx Perform Med Rec) 1 each MISCELLANE ONCE PRN PRN Reason: Consult order Sodium Chloride (0.9 % Sodium Chloride Flush 3 Ml Syringe) 3 ml IVFLUSH QSHIFT [facility] Last Admin: 01/06/23 10:33 Dose: 3 ml Documented By: ANDI Tiotropium [place] (Tiotropium Dante 2.5 Mcg Inhaler) 1 puff INHALE RDAILY@1500 [facility] Last Admin: 01/05/23 15:13 Dose: 1 puff Documented By: EDILSON Vitamin D (Cholecalciferol (Vitamin D3) 25 Mcg Tablet) 25 mcg PO BID [facility] Last Admin: 01/06/23 10:32 Dose: 25 mcg Documented By: ANDI Labs 01/04/23 05:57 01/04/23 05:57 Assessment and Plan (1) COVID: Status: Acute Plan 72F PMH chronic hypoxic respiratory failure on 3L home O2 due to COPD, suspected lung cancer (patient has refused work up or treatement), HTN, HLD, GERD, anxiety, presented with fevers, generalized weakness, found to have covid viral sepsis due to covid completed paxlovid, decadron repeat covid test tomorrow (01/07) if negative can go to snf otherwise 01/12/23 hyponatremia ?hypovoelmic improved with ivf chronic hypoxic respiratory failure due to COPD with acute decompensation due to covid at baseline o2, completed course of steroids htn diltiazem and lisinopril suspected lung cancer patient not interested in further work up or treatment anxiety xanax full code dvt prophylaxis - lovenox reason for continued hospitalization:skip lea placement Time Spent With Patient Time: Total time managing care of this patient today ____ minutes. Quality Stroke Does the patient have a stroke diagnosis?: No VTE Prior VTE?: No VTE Risk Level:: Medical - moderate - high VTE Device Contraindication: Treatment Not Indicated VTE Drug Contraindication: N/A - Med Ordered
[2023-01-06] MEDS: Enoxaparin Sodium 40 MG/0.4 ML SYRINGE SUBCUT (19:08)
[2023-01-06] MEDS: Acetaminophen 325 MG TABLET 650 MG PO (23:58)
[2023-01-07] VITALS (8 sets, daily range): BP systolic 122–147; BP diastolic 63–80; PULSE 75–93; RESP 16–20; TEMP 36.3–37; O2SAT 91–100
[2023-01-07] MEDS: Omeprazole 20 MG CAPSULE.DR PO (05:35)
[2023-01-07 06:16] LABS: Hematocrit 32.6 % (37.0-47.0); Hemoglobin 10.1 g/dl (12.0-16.0); Mean Corpuscular Hemoglobin 29.6 pg (27.0-33.0); Mean Corpuscular Volume 95.6 fL (80.0-98.0); Mean Platelet Volume 9.9 fL (9.4-12.3); Platelet Count 282 X10*3/uL (160-400); Red Blood Count 3.41 X10*6/uL (4.20-5.50); Red Cell Distribution Width 14.6 % (11.0-16.0)
[2023-01-07 06:33] LABS: Anion Gap 12 (12-20); Blood Urea Nitrogen 20 mg/dL (9-16); Calcium 9.1 mg/dL (8.4-10.2); Carbon Dioxide 33 mmol/L (22-29); Chloride 94 mmol/L (96-108); Creatinine Clr Calc Pharmacy 38.3; Estimated Glomerular Filt Rate 56; Glucose Fasting 118 mg/dL (60-99); Potassium 4.4 mmol/L (3.3-5.1); Sodium 135 mmol/L (135-145)
[2023-01-07] MEDS: Albuterol/Iprat 2.5/0.5MG 3 ML AMPUL.NEB INHALE ×3 (08:24→15:21)
[2023-01-07] MEDS: Cholecalciferol (Vitamin D3) 25 MCG TABLET PO ×2 (09:10→21:17)
[2023-01-07] MEDS: dilTIAZem HCL CD 120 MG CAP.ER.DEG PO (09:10)
[2023-01-07] MEDS: ALPRAZolam 0.5 MG TABLET PO (09:10)
[2023-01-07] MEDS: 0.9 % Sodium Chloride Flush 3 ML SYRINGE IVFLUSH ×3 (09:11→21:17)
[2023-01-07] MEDS: lisinopriL 5 MG TABLET PO (09:11)
[2023-01-07 13:23] LABS: COVID-19 Test Positive (Negative); IDNOW Serial# BCCEAD1C
--- NOTE | 2023-01-07 13:31 | HO.PM.IMPN ---
Subjective Subjective Date of Service: 01/07/23 Interval History: Feels better overall Denies any fever or difficulties breathing tolerating diet Review of Systems Review of Systems: Yes all other systems are reviewed and are negative Physical Exam Vital Signs: Vital Signs: Last Vital Signs Temp 98.3 F 01/07/23 07:27 Pulse 93 01/07/23 12:06 Resp 20 01/07/23 12:06 BP 140/80 H 01/07/23 07:27 Pulse Ox 100 01/07/23 07:27 O2 Del Method Nasal Cannula 01/07/23 07:27 O2 Flow Rate 2 01/07/23 07:27 Oxygen Flow Rate 4 01/01/23 13:42 BMI result Body Mass Index 20.8 Const: Other: Constitutional : Awake, interactive, not in distress Neck : Normal inspection, Supple Cardiovascular : RRR, no JVP, no lower extremity edema Respiratory : good bilateral air entry, no crackles, on baseline O2 supplement Gastrointestinal: soft, lax, Normal bowel sounds, Non tender Skin : Warm, Dry Neurological : Alert & oriented , No focal deficit Objective Data Active Medications Acetaminophen (Acetaminophen 325 Mg Tablet) 650 mg PO Q6H PRN PRN Reason: Pain, Mild (Pain Scale 1-3) Last Admin: 01/06/23 23:58 Dose: 650 mg Documented By: IAIN Albuterol/Ipratropium (Albuterol/Iprat 2.5/0.5mg 3 Ml Ampul.Neb) 3 ml INHALE RQ4H WHILE AWAKE [facility] Last Admin: 01/07/23 11:50 Dose: 3 ml Documented By: ROBERT Alprazolam (Alprazolam 0.5 Mg Tablet) 0.5 mg PO BID [facility] Last Admin: 01/07/23 09:10 Dose: 0.5 mg Documented By: ANNETTE Diltiazem HCl (Diltiazem Hcl Cd 120 Mg Cap.Er.Deg) 120 mg PO DAILY [facility]; Protocol Last Admin: 01/07/23 09:10 Dose: 120 mg Documented By: ANNETTE Docusate Sodium (Docusate Sodium 100 Mg Capsule) 100 mg PO DAILY PRN PRN Reason: Constipation Enoxaparin Sodium (Enoxaparin Sodium 40 Mg/0.4 Ml Syringe) 40 mg SUBCUT Q24H [facility] Last Admin: 01/06/23 19:08 Dose: 40 mg Documented By: ANDI Lisinopril (Lisinopril 5 Mg Tablet) 5 mg PO DAILY [facility]; Protocol Last Admin: 01/07/23 09:11 Dose: 5 mg Documented By: ANNETTE Omeprazole (Omeprazole 20 Mg Capsule.Dr) 20 mg PO DAILY@0630 [facility] Last Admin: 01/07/23 05:35 Dose: 20 mg Documented By: IAIN Ondansetron HCl (Ondansetron Hcl 4 Mg/2 Ml Vial) 4 mg IVPUSH Q8H PRN PRN Reason: Nausea and Vomiting Pharmacy Consult (Consult Rx Perform Med Rec) 1 each MISCELLANE ONCE PRN PRN Reason: Consult order Sodium Chloride (0.9 % Sodium Chloride Flush 3 Ml Syringe) 3 ml IVFLUSH QSHIFT [facility] Last Admin: 01/07/23 09:11 Dose: 3 ml Documented By: ANNETTE Tiotropium [place] (Tiotropium [place] 2.5 Mcg Inhaler) 1 puff INHALE RDAILY@1500 [facility] Last Admin: 01/06/23 16:44 Dose: 1 puff Documented By: WILFREDO Vitamin D (Cholecalciferol (Vitamin D3) 25 Mcg Tablet) 25 mcg PO BID [facility] Last Admin: 01/07/23 09:10 Dose: 25 mcg Documented By: ANNETTE Labs 01/07/23 06:01 01/07/23 06:01 Labs: Laboratory Results - last 24 hr 01/07/23 01/07/23 01/07/23 06:01 06:01 12:45 MCV 95.6 MCH 29.6 MCHC 31.0 RDW 14.6 Plt Count 282 MPV 9.9 Absolute Nucleated RBC 0.000 Nucleated RBC % (auto) 0.0 Anion Gap 12 Estim Creat Clear Calc 38.3 Estimated GFR 56 Fasting Glucose 118 H Calcium 9.1 D COVID-19 (IVANA) Positive A COVID-19 Clin Com See Note Microbiology Microbiology Results: Microbiology 01/01/23 14:24 Blood Culture - Final Blood - Venous No growth after 5 days. 01/01/23 14:24 Blood Culture - Final Blood - Venous No growth after 5 days. Assessment and Plan (1) COVID: Status: Acute (2) Hypoxia: Status: Acute (3) Generalized weakness: Status: Acute Plan 72F PMH chronic hypoxic respiratory failure on 3L home O2 due to COPD, suspected lung cancer (patient has refused work up or treatement), HTN, HLD, GERD, anxiety, presented with fevers, generalized weakness, found to have covid viral sepsis due to covid completed paxlovid, decadron +ve repeat Covid, planned DC on 01/12/23 hyponatremia resolved DC IVF chronic hypoxic respiratory failure due to COPD with acute decompensation due to covid at baseline o2, completed course of steroids htn diltiazem and lisinopril suspected lung cancer patient not interested in further work up or treatment anxiety xanax full code dvt prophylaxis - lovenox reason for continued hospitalization:venu needs placement Time Spent With Patient Time: Total time managing care of this patient today ____ minutes. Quality Stroke Does the patient have a stroke diagnosis?: No VTE Prior VTE?: No VTE Risk Level:: Medical - moderate - high VTE Device Contraindication: Treatment Not Indicated VTE Drug Contraindication: N/A - Med Ordered
--- NOTE | 2023-01-07 14:20 | MHC.CM.PN ---
EMR reviewed and per MD rounds, pt is not medically cleared for D/C with pt remaining positive for covid and facilities unwilling to accept her with covid+ status. Anticipating pt will be able to D/C on 01/12 when recovered. CM will continue to follow.
[2023-01-07] MEDS: Enoxaparin Sodium 40 MG/0.4 ML SYRINGE SUBCUT (18:38)
[2023-01-08] VITALS (12 sets, daily range): BP systolic 110–187; BP diastolic 55–77; PULSE 89–126; RESP 16–20; TEMP 35.8–37.2; O2SAT 81–98
[2023-01-08] MEDS: Acetaminophen 325 MG TABLET 650 MG PO (03:40)
[2023-01-08] MEDS: Omeprazole 20 MG CAPSULE.DR PO (06:01)
[2023-01-08] MEDS: Fluticasone/Vilanterol 100/25 BLST.W.DEV 1 PUFF INHALE (07:40)
[2023-01-08] MEDS: Albuterol/Iprat 2.5/0.5MG 3 ML AMPUL.NEB INHALE ×3 (07:40→19:51)
[2023-01-08] MEDS: lisinopriL 5 MG TABLET PO (08:12)
[2023-01-08] MEDS: dilTIAZem HCL CD 120 MG CAP.ER.DEG PO (08:12)
[2023-01-08] MEDS: Cholecalciferol (Vitamin D3) 25 MCG TABLET PO ×2 (08:12→21:28)
[2023-01-08] MEDS: 0.9 % Sodium Chloride Flush 3 ML SYRINGE IVFLUSH ×2 (08:13→17:16)
[2023-01-08 10:48] LABS: Iron 101 mcg/dL (30-160); Percent Iron Saturation 45 % (15-50); Total Iron Binding Capacity 224 mcg/dL (228-428); Unsaturated Iron Binding 123 ug/dL
--- NOTE | 2023-01-08 10:52 | P.PNIM_ITS ---
Subjective Subjective Date of Service: 01/08/23 Interval History: Feels better overall Denies any fever or difficulties breathing tolerating diet Review of Systems Review of Systems: Yes all other systems are reviewed and are negative Physical Exam Vital Signs: Vital Signs: Last Vital Signs Temp 97.1 F 01/08/23 07:45 Pulse 90 01/08/23 07:41 Resp 17 01/08/23 07:41 BP 131/55 L 01/08/23 07:39 Pulse Ox 98 01/08/23 07:39 O2 Del Method Nasal Cannula 01/08/23 07:39 O2 Flow Rate 2 01/08/23 07:39 Oxygen Flow Rate 4 01/01/23 13:42 BMI result Body Mass Index 20.8 Const: Other: Constitutional : Awake, interactive, not in distress Neck : Normal inspection, Supple Cardiovascular : RRR, no JVP, no lower extremity edema Respiratory : good bilateral air entry, no crackles, on baseline O2 supplement Gastrointestinal: soft, lax, Normal bowel sounds, Non tender Skin : Warm, Dry Neurological : Alert & oriented , No focal deficit Objective Data Active Medications Acetaminophen (Acetaminophen 325 Mg Tablet) 650 mg PO Q6H PRN PRN Reason: Pain, Mild (Pain Scale 1-3) Last Admin: 01/08/23 03:40 Dose: 650 mg Documented By: CARLITOS Albuterol Sulfate (Albuterol Sulfate 90 Mcg 8 Gm Inhaler) 2 puff INHALE Q6H PRN PRN Reason: for wheezing Albuterol/Ipratropium (Albuterol/Iprat 2.5/0.5mg 3 Ml Ampul.Neb) 3 ml INHALE RQ6H WHILE AWAKE [facility] Last Admin: 01/08/23 07:40 Dose: 3 ml Documented By: NEGRO Diltiazem HCl (Diltiazem Hcl Cd 120 Mg Cap.Er.Deg) 120 mg PO DAILY [facility]; Protocol Last Admin: 01/08/23 08:12 Dose: 120 mg Documented By: FABIENNE Docusate Sodium (Docusate Sodium 100 Mg Capsule) 100 mg PO DAILY PRN PRN Reason: Constipation Enoxaparin Sodium (Enoxaparin Sodium 40 Mg/0.4 Ml Syringe) 40 mg SUBCUT Q24H [facility] Last Admin: 01/07/23 18:38 Dose: 40 mg Documented By: ANDI Fluticasone/Vilanterol (Fluticasone/Vilanterol 100/25 Blst.W.Dev) 1 puff INHALE RDAILY [facility] Last Admin: 01/08/23 07:40 Dose: 1 puff Documented By: NEGRO Lisinopril (Lisinopril 5 Mg Tablet) 5 mg PO DAILY [facility]; Protocol Last Admin: 01/08/23 08:12 Dose: 5 mg Documented By: FABIENNE Omeprazole (Omeprazole 20 Mg Capsule.Dr) 20 mg PO DAILY@0630 [facility] Last Admin: 01/08/23 06:01 Dose: 20 mg Documented By: CARLITOS Ondansetron HCl (Ondansetron Hcl 4 Mg/2 Ml Vial) 4 mg IVPUSH Q8H PRN PRN Reason: Nausea and Vomiting Pharmacy Consult (Consult Rx Perform Med Rec) 1 each MISCELLANE ONCE PRN PRN Reason: Consult order Sodium Chloride (0.9 % Sodium Chloride Flush 3 Ml Syringe) 3 ml IVFLUSH QSHIFT [facility] Last Admin: 01/08/23 08:13 Dose: 3 ml Documented By: FABIENNE Tiotropium Bly (Tiotropium Bly 2.5 Mcg Inhaler) 1 puff INHALE [facility] Vitamin D (Cholecalciferol (Vitamin D3) 25 Mcg Tablet) 25 mcg PO BID [facility] Last Admin: 01/08/23 08:12 Dose: 25 mcg Documented By: FABIENNE Labs 01/07/23 06:01 01/07/23 06:01 Labs: Laboratory Results - last 24 hr 01/07/23 01/08/23 12:45 09:06 Iron 101 TIBC 224 L % Saturation 45 Unsat Iron Binding 123 COVID-19 (IVANA) Positive A COVID-19 Clin Com See Note Assessment and Plan (1) COVID: Status: Acute (2) Generalized weakness: Status: Acute Plan 72F PMH chronic hypoxic respiratory failure on 3L home O2 due to COPD, suspected lung cancer (patient has refused work up or treatement), HTN, HLD, GERD, anxiety, presented with fevers, generalized weakness, found to have covid viral sepsis due to covid completed paxloviyojana nayakadron +ve repeat Covid, planned DC on 01/12/23 hyponatremia resolved DC IVF Anemia Hb dropped to 10 from baseline >12 normal iron stores, pending B12, folate might need further work up as outpatient chronic hypoxic respiratory failure due to COPD with acute decompensation due to covid at baseline o2, completed course of steroids htn diltiazem and lisinopril suspected lung cancer patient not interested in further work up or treatment anxiety xanax full code dvt prophylaxis - lovenox reason for continued hospitalization:venu, needs placement Time Spent With Patient Time: Total time managing care of this patient today ____ minutes. Quality Stroke Does the patient have a stroke diagnosis?: No VTE Prior VTE?: No VTE Risk Level:: Medical - moderate - high VTE Device Contraindication: Treatment Not Indicated VTE Drug Contraindication: N/A - Med Ordered
[2023-01-08 14:18] LABS: Folate 2.8 ng/mL (> or = 4.0); Vitamin B12 311 pg/mL (200-900)
[2023-01-08] MEDS: Albuterol Sulfate 90 MCG 8 GM INHALER 2 PUFF INHALE (16:33)
[2023-01-08] MEDS: ALPRAZolam 0.25 MG TABLET PO (17:06)
[2023-01-08] MEDS: Enoxaparin Sodium 40 MG/0.4 ML SYRINGE SUBCUT (17:07)
[2023-01-08] MEDS: hydrALAZINE HCl 20 MG/ML VIAL 5 MG IVPUSH (21:26)
[2023-01-08] MEDS: LORazepam 2 MG/ML VIAL 0.5 MG IVPUSH (21:28)
[2023-01-09] VITALS (12 sets, daily range): BP systolic 109–163; BP diastolic 57–82; PULSE 108–121; RESP 15–23; TEMP 36–37.3; O2SAT 93–98
--- NOTE | 2023-01-09 | ECG_ITS ---
Test Reason : anxious Blood Pressure : / mmHG Vent. Rate : 119 BPM Atrial Rate : 119 BPM P-R Int : 172 ms QRS Dur : 080 ms QT Int : 300 ms P-R-T Axes : 048 013 043 degrees QTc Int : 422 ms Sinus tachycardia Septal infarct (cited on or before 01-JAN-2023) Abnormal ECG When compared with ECG of 01-JAN-2023 13:51, Questionable change in initial forces of Septal leads Referred By: Keyona Hannah Electronically Signed By:Jerome Whitfield
[2023-01-09] MEDS: ALPRAZolam 0.5 MG TABLET PO ×2 (02:31→10:54)
[2023-01-09] MEDS: hydrALAZINE HCl 20 MG/ML VIAL 5 MG IVPUSH (02:32)
[2023-01-09] MEDS: 0.9 % Sodium Chloride Flush 3 ML SYRINGE IVFLUSH ×4 (02:38→21:38)
[2023-01-09 02:59] LABS: Troponin-I High Sensitivity 21.2 ng/L (<3.5-17.0)
[2023-01-09] MEDS: Omeprazole 20 MG CAPSULE.DR PO (05:20)
[2023-01-09] MEDS: Albuterol/Iprat 2.5/0.5MG 3 ML AMPUL.NEB INHALE (08:03)
[2023-01-09] MEDS: Fluticasone/Vilanterol 100/25 BLST.W.DEV 1 PUFF INHALE (08:03)
--- NOTE | 2023-01-09 09:20 | PC.NURSE ---
pt c/o anxiety and sob, bp noted to be elevated and Dr. Gray aware. IV hydralazine x2 with some effect. iv ativan with little effect. Pt continued to report sob. ECG, labs, xray, updraft done with pt showing slight increase/change in assessment. Pt stated her biggest problem was anxiety, noted pt's Xanax had been d/c'd and MD aware. Pt had a one time dose Xanax with + effect and stated she felt much better and just wanted to sleep. BP after xanax down to normal limits.
[2023-01-09] MEDS: Acetaminophen 325 MG TABLET 650 MG PO (09:51)
[2023-01-09] MEDS: lisinopriL 5 MG TABLET PO (09:51)
[2023-01-09] MEDS: predniSONE 20 MG TABLET 40 MG PO (09:51)
[2023-01-09] MEDS: dilTIAZem HCL CD 120 MG CAP.ER.DEG PO (09:51)
[2023-01-09] MEDS: Cholecalciferol (Vitamin D3) 25 MCG TABLET PO ×2 (09:52→21:35)
--- NOTE | 2023-01-09 12:19 | P.PNIM_ITS ---
Subjective Subjective Date of Service: 01/09/23 Interval History: Feels better overall Denies any fever but reports having more difficulties breathing reports anxiety tolerating diet Review of Systems Review of Systems: Yes all other systems are reviewed and are negative Physical Exam Vital Signs: Vital Signs: Last Vital Signs Temp 97.1 F 01/09/23 07:32 Pulse 118 H 01/09/23 11:27 Resp 22 H 01/09/23 11:27 BP 147/82 H 01/09/23 07:32 Pulse Ox 93 01/09/23 07:32 O2 Del Method Nasal Cannula 01/09/23 07:32 O2 Flow Rate 4 01/09/23 07:32 Oxygen Flow Rate 4 01/01/23 13:42 BMI result Body Mass Index 20.8 Const: Other: Constitutional : Awake, interactive, in mild resp distress, anxious Neck : Normal inspection, Supple Cardiovascular : RRR, no JVP, no lower extremity edema Respiratory : decreased bilateral air entry, fine basal crackles, on O2 supplement Gastrointestinal: soft, lax, Normal bowel sounds, Non tender Skin : Warm, Dry Neurological : Alert & oriented , No focal deficit Objective Data Active Medications Acetaminophen (Acetaminophen 325 Mg Tablet) 650 mg PO Q6H PRN PRN Reason: Pain, Mild (Pain Scale 1-3) Last Admin: 01/09/23 09:51 Dose: 650 mg Documented By: FABIENNE Albuterol Sulfate (Albuterol Sulfate 90 Mcg 8 Gm Inhaler) 2 puff INHALE Q6H PRN PRN Reason: for wheezing Last Admin: 01/08/23 16:33 Dose: 2 puff Documented By: NEGRO Albuterol/Ipratropium (Albuterol/Iprat 2.5/0.5mg 3 Ml Ampul.Neb) 3 ml INHALE RQ6H WHILE AWAKE [facility] Last Admin: 01/09/23 08:03 Dose: 3 ml Documented By: NEGRO Albuterol/Ipratropium (Albuterol/Iprat 2.5/0.5mg 3 Ml Ampul.Neb) 3 ml INHALE RQ4H PRN PRN Reason: Shortness of Breath/Wheezing Alprazolam (Alprazolam 0.5 Mg Tablet) 0.5 mg PO BID PRN PRN Reason: anxiety/restlessness Last Admin: 01/09/23 10:54 Dose: 0.5 mg Documented By: FABIENNE Diltiazem HCl (Diltiazem Hcl Cd 120 Mg Cap.Er.Deg) 120 mg PO DAILY ON LICENSE OF [facility]; Protocol Last Admin: 01/09/23 09:51 Dose: 120 mg Documented By: FABIENNE Docusate Sodium (Docusate Sodium 100 Mg Capsule) 100 mg PO DAILY PRN PRN Reason: Constipation Enoxaparin Sodium (Enoxaparin Sodium 40 Mg/0.4 Ml Syringe) 40 mg SUBCUT Q24H ON LICENSE OF [facility] Last Admin: 01/08/23 17:07 Dose: 40 mg Documented By: TERAN Fluticasone/Vilanterol (Fluticasone/Vilanterol 100/25 Blst.W.Dev) 1 puff INHALE RDAILY ON LICENSE OF [facility] Last Admin: 01/09/23 08:03 Dose: 1 puff Documented By: NEGRO Levalbuterol HCl (Levalbuterol Hcl 1.25 Mg/3 Ml Vial.Neb) 1.25 mg INHALE RTID ON LICENSE OF [facility] Last Admin: 01/09/23 08:25 Dose: Not Given Documented By: NEGRO Non-Admin Reason: new order, duoneb already given Lisinopril (Lisinopril 5 Mg Tablet) 5 mg PO DAILY ON LICENSE OF [facility]; Protocol Last Admin: 01/09/23 09:51 Dose: 5 mg Documented By: FABIENNE Omeprazole (Omeprazole 20 Mg Capsule.Dr) 20 mg PO DAILY@0630 ON LICENSE OF [facility] Last Admin: 01/09/23 05:20 Dose: 20 mg Documented By: TANVIR Ondansetron HCl (Ondansetron Hcl 4 Mg/2 Ml Vial) 4 mg IVPUSH Q8H PRN PRN Reason: Nausea and Vomiting Pharmacy Consult (Consult Rx Perform Med Rec) 1 each MISCELLANE ONCE PRN PRN Reason: Consult order Prednisone (Prednisone 20 Mg Tablet) 40 mg PO DAILY ON LICENSE OF [facility] Last Admin: 01/09/23 09:51 Dose: 40 mg Documented By: FABIENNE Sodium Chloride (0.9 % Sodium Chloride Flush 3 Ml Syringe) 3 ml IVFLUSH QSHIFT ON LICENSE OF [facility] Last Admin: 01/09/23 09:52 Dose: 3 ml Documented By: HO.FOSTEKR Tiotropium [place] (Tiotropium [place] 2.5 Mcg Inhaler) 1 puff INHALE RDAILY ON LICENSE OF [facility] Last Admin: 01/09/23 11:24 Dose: 1 puff Documented By: NEGRO Vitamin D (Cholecalciferol (Vitamin D3) 25 Mcg Tablet) 25 mcg PO BID ON LICENSE OF [facility] Last Admin: 01/09/23 09:52 Dose: 25 mcg Documented By: FABIENNE Labs 01/07/23 06:01 01/07/23 06:01 Labs: Laboratory Results - last 24 hr 01/08/23 11:28 Vitamin B12 311 Folate 2.8 L Assessment and Plan (1) COVID: Status: Acute (2) Hypoxia: Status: Acute (3) COPD exacerbation: Status: Acute Plan 72F PMH chronic hypoxic respiratory failure on 3L home O2 due to COPD, suspected lung cancer (patient has refused work up or treatement), HTN, HLD, GERD, anxiety, presented with fevers, generalized weakness, found to have covid viral sepsis due to covid completed paxlovid, decadron +ve repeat Covid, planned DC on 01/12/23 hyponatremia resolved DC IVF Anemia Hb dropped to 10 from baseline >12 normal iron stores, pending B12, folate might need further work up as outpatient chronic hypoxic respiratory failure due to COPD with acute decompensation due to covid at baseline o2 Restart Prednisone for exacerbation Nebulizers for now htn diltiazem and lisinopril suspected lung cancer patient not interested in further work up or treatment anxiety w panic attacks restart xanax full code dvt prophylaxis lovenox reason for continued hospitalization:weakness, waiting by placement Thursday Time Spent With Patient Time: Total time managing care of this patient today ____ minutes. Quality Stroke Does the patient have a stroke diagnosis?: No VTE Prior VTE?: No VTE Risk Level:: Medical - moderate - high VTE Device Contraindication: Treatment Not Indicated VTE Drug Contraindication: N/A - Med Ordered
--- NOTE | 2023-01-09 12:26 | MHC.CM.PN ---
EMR reviewed and per MD rounds, pt is not medically cleared for D/C home due to awaiting appropriate placement, anticipating pt D/C this upcoming Thursday. CM will continue to follow.
[2023-01-09] MEDS: Furosemide 20 MG/2 ML VIAL IVPUSH (14:09)
[2023-01-09] MEDS: levalbuterol HCL 1.25 MG/3 ML VIAL.NEB INHALE ×2 (15:23→20:03)
[2023-01-09 16:28] LABS: Hematocrit 34.1 % (37.0-47.0); Hemoglobin 11.1 g/dl (12.0-16.0); Mean Corpuscular HGB Conc 32.6 g/dl (31.0-35.0); Mean Corpuscular Hemoglobin 29.4 pg (27.0-33.0); Mean Corpuscular Volume 90.5 fL (80.0-98.0); Mean Platelet Volume 10.5 fL (9.4-12.3); NRBC Pct Auto 0.1 /100WBC (0.0-0.2); Platelet Count 300 X10*3/uL (160-400); Red Blood Count 3.77 X10*6/uL (4.20-5.50); Red Cell Distribution Width 14.6 % (11.0-16.0); White Blood Count 16.4 X10*3/uL (4.8-10.8)
[2023-01-09 16:48] LABS: B Type Natriuretic Peptide 176 pg/mL (<100)
[2023-01-09 16:55] LABS: Anion Gap 14 (12-20)
[2023-01-09 17:01] LABS: Blood Urea Nitrogen 23 mg/dL (9-16); Calcium 9.2 mg/dL (8.4-10.2); Carbon Dioxide 28 mmol/L (22-29); Chloride 80 mmol/L (96-108); Creatinine Clr Calc Pharmacy 44.3; Estimated Glomerular Filt Rate > 60; Glucose Random 115 mg/dL (60-115); Lactate Dehydrogenase 300 U/L (122-220); Sodium 117 mmol/L (135-145)
[2023-01-09] MEDS: Enoxaparin Sodium 40 MG/0.4 ML SYRINGE SUBCUT (17:14)
[2023-01-09] MEDS: guaiFENesin LA 600 MG TAB.ER.12H PO ×2 (17:14→21:35)
[2023-01-09] MEDS: Morphine Sulfate 2 MG/ML CARTRIDGE 1 MG IVPUSH (17:15)
--- NOTE | 2023-01-09 18:23 | MHC.SL.SWA ---
Speech Pathologist Impression: Risk of aspiration, oropharyngeal dysphagia Risk of Aspiration Due to: Lethargy Medically Fragile Dysphasia Diet Status: No change Liquid Consistency and Strategies for Safe Swallow: Liquid Intake Recommendation: Thin Liquid Intake Strategies: Small Sips No Straws Solid Food Consistency: Dietary Recommendations: Grnd/Mech Altered (NDD2) Additional Modifications to Solid Foods: Recommend continue on GROUND/MECH ALTERED (NDD2) diet as ordered by MD, THIN liquids, pills CRUSHED in PUREE. At this time, pt requires TOTAL 1:1 ASSISTANCE FEEDING. Pt is observed to pocket food, exhibits prolonged oral preparatory phase and mastication. Moisten food with sauce and gravy. Administer small bites. Allow pt w/ adequate time to chew. Encourage dry swallow between bites and alternate with sips of liquids to promote clearance. Check oral cavity and ensure residue is cleared before giving more bites. Other standard aspiration precautions also apply (no straw, upright 90 degree position). Notified MD, RN, RD of recommendations via [employer] Message. Oral Medication Intake: Crushed with Puree Please contact the pharmacy regarding appropriate crushable or liquid drug formulations that are available whenever modified delivery is recommended. Compensatory Strategies and Precautions to be Taken for Safe Swallow: Sitting Upright (90 deg) Double Swallow No Straw Liquids from Cup Liquids from Spoon Small Bites and Sips Alternate Liquids/Solids Rate of Ingestion Change Oral Check Avoid Specific Foods Supervision While Eating and Drinking for Safe Swallow: Total Assistance (1:1) Foods to Avoid: Hard tough to chew solids; mixed textures; sticky foods Swallowing Recommended Treatments: Compens. Strategy Educat. Recommendation for Speech: Inpatient Speech Therapy Corporate Accountant Clinican/Clinical Fellow: No Supervisory Statement: I have reviewed and agree with the student/clinical fellow's documentation: N/A Speech Language Pathologist: Iris Castro M.A., CCC-INFRASTRUCTURE DEVELOPER
[2023-01-09 20:50] LABS: Anion Gap 17 (12-20); Blood Urea Nitrogen 24 mg/dL (9-16); Calcium 8.8 mg/dL (8.4-10.2); Carbon Dioxide 27 mmol/L (22-29); Chloride 79 mmol/L (96-108); Creatinine Clr Calc Pharmacy 44.3; Estimated Glomerular Filt Rate > 60; Glucose Random 110 mg/dL (60-115); Potassium 4.8 mmol/L (3.3-5.1); Sodium 118 mmol/L (135-145)
[2023-01-09 22:12] LABS: Creatinine Urine 34.98 mg/dL
[2023-01-09 22:38] LABS: Anion Gap 17 (12-20); Blood Urea Nitrogen 25 mg/dL (9-16); Calcium 8.5 mg/dL (8.4-10.2); Carbon Dioxide 25 mmol/L (22-29); Chloride 79 mmol/L (96-108); Creatinine Clr Calc Pharmacy 44.3; Estimated Glomerular Filt Rate > 60; Glucose Random 109 mg/dL (60-115); Potassium 4.9 mmol/L (3.3-5.1); Sodium 116 mmol/L (135-145)
--- NOTE | 2023-01-09 22:44 | PM.EVENT ---
Event Note Date of Service: 01/09/23 Event Note: patient is hyponatremic on repeat labs. Alert oriented x4, spoke to Nephrology, at this point will place on fluid restriction, repeat BMP q.4 hours, if remains low, will consider 3% saline. Will follow patient very closely. Low threshold to transfer to ICU Time Spent With Patient Time: Total time managing care of this patient today ____ minutes.
[2023-01-09] MEDS: Sodium Chloride 3 % 100 ML 30 ML IV (23:31)
[2023-01-10 02:15] LABS: Osmolality, Serum 248 mosm/kg (281-305)
[2023-01-10 02:22] LABS: Anion Gap 18 (12-20); Blood Urea Nitrogen 24 mg/dL (9-16); Calcium 8.5 mg/dL (8.4-10.2); Carbon Dioxide 25 mmol/L (22-29); Chloride 81 mmol/L (96-108); Creatinine Clr Calc Pharmacy 48.4; Estimated Glomerular Filt Rate > 60; Glucose Random 71 mg/dL (60-115); Potassium 4.6 mmol/L (3.3-5.1)
[2023-01-10 02:24] LABS: Sodium 119 mmol/L (135-145)
[2023-01-10] MEDS: 0.9 % Sodium Chloride 500 ML 50 ML IV (02:37)
[2023-01-10 03:11] LABS: Osmolality Urine 402 mosm/kg (373-1093)
[2023-01-10 03:32] VITALS: BP 142/77; PULSE 109; RESP 20
--- NOTE | 2023-01-10 05:33 | PC.NURSE ---
1900: Received handover from prior RN and acquired care of pt. Pt. somnolent but awakens easily to voice. Pt. voices no c/o discomfort and states her breathing is not so bad at this time. RR 22-24. 93-94% sat's on 3L via NC. LS: Exp. rhonchi throughout and NPC. HOB elevated. Pt. labs drawn at 195 and resulted: Sodium = 118, which was reported to Dr. Hannah at 2049. 1500ml Fluid restriction ordered. Pt. informed. Pt. only taking sips of water this evening. Urine sent for random sodium, urea and creat. Pt. denies any changes in symptoms. Pt. Sodium level from 2158 was 116 with BUN of 25. Labs reported to Dr. Hannah and 3% NS ordered at 30ml/hr, started at 2331 and completed at 0300. Pt. more awake, and alert at this time and more conversant. 0124 Sodium level was 119, reported to Dr. Peres and NS at 50ml/hr x500ml.
[2023-01-10] MEDS: Omeprazole 20 MG CAPSULE.DR PO (05:44)
[2023-01-10 08:00] VITALS: BP 139/63; PULSE 98; RESP 18; TEMP 36.8; O2SAT 94
[2023-01-10 08:21] LABS: Hematocrit 30.8 % (37.0-47.0); Mean Corpuscular HGB Conc 32.5 g/dl (31.0-35.0); Mean Corpuscular Hemoglobin 29.4 pg (27.0-33.0); Mean Corpuscular Volume 90.6 fL (80.0-98.0); Platelet Count 241 X10*3/uL (160-400); Red Cell Distribution Width 14.2 % (11.0-16.0); White Blood Count 14.1 X10*3/uL (4.8-10.8)
[2023-01-10 09:42] LABS: Anion Gap 14 (12-20); Blood Urea Nitrogen 22 mg/dL (9-16); Calcium 8.6 mg/dL (8.4-10.2); Carbon Dioxide 29 mmol/L (22-29); Chloride 82 mmol/L (96-108); Creatinine Clr Calc Pharmacy 50.3; Estimated Glomerular Filt Rate > 60; Glucose Random 54 mg/dL (60-115); Potassium 4.3 mmol/L (3.3-5.1); Sodium 121 mmol/L (135-145)
[2023-01-10 09:51] LABS: Glucose, Whole Blood 129 mg/dL (60-115)
[2023-01-10] MEDS: guaiFENesin LA 600 MG TAB.ER.12H PO ×2 (10:00→21:06)
[2023-01-10] MEDS: 0.9 % Sodium Chloride Flush 3 ML SYRINGE IVFLUSH ×3 (10:00→21:06)
[2023-01-10] MEDS: dilTIAZem HCL CD 120 MG CAP.ER.DEG PO (10:00)
[2023-01-10] MEDS: Cholecalciferol (Vitamin D3) 25 MCG TABLET PO ×2 (10:00→21:06)
[2023-01-10] MEDS: predniSONE 20 MG TABLET 40 MG PO (10:00)
[2023-01-10 10:02] LABS: Anion Gap 15 (12-20); Blood Urea Nitrogen 22 mg/dL (9-16); Calcium 8.6 mg/dL (8.4-10.2); Carbon Dioxide 28 mmol/L (22-29); Chloride 81 mmol/L (96-108); Creatinine Clr Calc Pharmacy 47.1; Estimated Glomerular Filt Rate > 60; Glucose Random 120 mg/dL (60-115); Potassium 3.8 mmol/L (3.3-5.1); Sodium 120 mmol/L (135-145)
[2023-01-10] MEDS: Urea 15 GM POWDER PO (11:41)
[2023-01-10] MEDS: Sodium Chloride 3 % 100 ML 30 ML IV (11:41)
[2023-01-10 11:43] VITALS: BP 127/61; PULSE 99; RESP 18; TEMP 36.6; O2SAT 98
--- NOTE | 2023-01-10 12:09 | HO.PM.IMPN ---
Subjective Subjective Date of Service: 01/10/23 Interval History: Seen and evaluated looks better overall less difficulties breathing and anxiety Noted to have drop of Na to 116, improved to 120 this morning tolerating diet Review of Systems Review of Systems: Yes all other systems are reviewed and are negative Physical Exam Vital Signs: Vital Signs: Last Vital Signs Temp 97.9 F 01/10/23 11:43 Pulse 99 01/10/23 11:43 Resp 18 01/10/23 11:43 BP 127/61 01/10/23 11:43 Pulse Ox 98 01/10/23 11:43 O2 Del Method Nasal Cannula 01/10/23 11:43 O2 Flow Rate 3.0 01/10/23 11:43 Oxygen Flow Rate 4 01/01/23 13:42 BMI result Body Mass Index 20.8 Const: Other: Constitutional : Awake, interactive, not in distress, mildly anxious Neck : Normal inspection, Supple Cardiovascular : RRR, no JVP, no lower extremity edema Respiratory : decreased bilateral air entry, no crackles, on O2 supplement Gastrointestinal: soft, lax, Normal bowel sounds, Non tender Skin : Warm, Dry Neurological : Alert & oriented to self and place, No focal deficit Objective Data Active Medications Acetaminophen (Acetaminophen 325 Mg Tablet) 650 mg PO Q6H PRN PRN Reason: Pain, Mild (Pain Scale 1-3) Last Admin: 01/09/23 09:51 Dose: 650 mg Documented By: FABIENNE Albuterol Sulfate (Albuterol Sulfate 90 Mcg 8 Gm Inhaler) 2 puff INHALE Q6H PRN PRN Reason: for wheezing Last Admin: 01/08/23 16:33 Dose: 2 puff Documented By: NEGRO Albuterol/Ipratropium (Albuterol/Iprat 2.5/0.5mg 3 Ml Ampul.Neb) 3 ml INHALE RQ4H PRN PRN Reason: Shortness of Breath/Wheezing Diltiazem HCl (Diltiazem Hcl Cd 120 Mg Cap.Er.Deg) 120 mg PO DAILY [facility]; Protocol Last Admin: 01/10/23 10:00 Dose: 120 mg Documented By: CTORRZ Docusate Sodium (Docusate Sodium 100 Mg Capsule) 100 mg PO DAILY PRN PRN Reason: Constipation Enoxaparin Sodium (Enoxaparin Sodium 40 Mg/0.4 Ml Syringe) 40 mg SUBCUT Q24H [facility] Last Admin: 01/09/23 17:14 Dose: 40 mg Documented By: FABIENNE Fluticasone/Vilanterol (Fluticasone/Vilanterol 100/25 Blst.W.Dev) 1 puff INHALE RDAILY [facility] Last Admin: 01/10/23 07:59 Dose: Not Given Documented By: EDILSON Non-Admin Reason: Patient Refused Guaifenesin (Guaifenesin [place] 600 Mg Tab.Er.12h) 600 mg PO BID [facility] Last Admin: 01/10/23 10:00 Dose: 600 mg Documented By: SANJIV Sodium Chloride (Sodium Chloride 3 %) 100 mls @ 30 mls/hr IV ONCE ONE Stop: 01/10/23 13:25 Last Admin: 01/10/23 11:41 Dose: 30 mls/hr Documented By: SANJIV Levalbuterol HCl (Levalbuterol Hcl 1.25 Mg/3 Ml Vial.Neb) 1.25 mg INHALE RTID [facility] Last Admin: 01/10/23 07:59 Dose: Not Given Documented By: EDILSON Non-Admin Reason: Patient Refused Lisinopril (Lisinopril 5 Mg Tablet) 5 mg PO DAILY [facility]; Protocol Last Admin: 01/09/23 09:51 Dose: 5 mg Documented By: FABIENNE Lorazepam (Lorazepam 1 Mg Tablet) 1 mg PO TID PRN PRN Reason: anxiety/restlessness Omeprazole (Omeprazole 20 Mg Capsule.) 20 mg PO DAILY@0630 [facility] Last Admin: 01/10/23 05:44 Dose: 20 mg Documented By: IAIN Ondansetron HCl (Ondansetron Hcl 4 Mg/2 Ml Vial) 4 mg IVPUSH Q8H PRN PRN Reason: Nausea and Vomiting Pharmacy Consult (Consult Rx Perform Med Rec) 1 each MISCELLANE ONCE PRN PRN Reason: Consult order Prednisone (Prednisone 20 Mg Tablet) 40 mg PO DAILY [facility] Last Admin: 01/10/23 10:00 Dose: 40 mg Documented By: SANJIV Sodium Chloride (0.9 % Sodium Chloride Flush 3 Ml Syringe) 3 ml IVFLUSH QSHIFT [facility] Last Admin: 01/10/23 10:00 Dose: 3 ml Documented By: SANJIV Tiotropium [place] (Tiotropium [place] 2.5 Mcg Inhaler) 1 puff INHALE RDAILY [facility] Last Admin: 01/10/23 08:00 Dose: Not Given Documented By: EDILSON Non-Admin Reason: Patient Refused Vitamin D (Cholecalciferol (Vitamin D3) 25 Mcg Tablet) 25 mcg PO BID [facility] Last Admin: 01/10/23 10:00 Dose: 25 mcg Documented By: SANJIV Labs 01/10/23 08:07 01/10/23 09:03 Labs: Laboratory Results - last 24 hr 01/09/23 01/09/23 01/09/23 15:58 15:58 15:58 MCV 90.5 D MCH 29.4 MCHC 32.6 RDW 14.6 Plt Count 300 MPV 10.5 Absolute Nucleated RBC 0.020 H Nucleated RBC % (auto) 0.1 Anion Gap 14 Estim Creat Clear Calc 44.3 Estimated GFR > 60 POC Glucose Random Glucose 115 Osmolality Calcium 9.2 Lactate Dehydrogenase 300 H B-Natriuretic Peptide 176 H TSH Urine Osmolality Ur Random Sodium Urine Creatinine 01/09/23 01/09/23 01/09/23 19:54 21:39 21:59 MCV MCH MCHC RDW Plt Count MPV Absolute Nucleated RBC Nucleated RBC % (auto) Anion Gap 17 17 Estim Creat Clear Calc 44.3 44.3 Estimated GFR > 60 > 60 POC Glucose Random Glucose 110 109 Osmolality Calcium 8.8 8.5 Lactate Dehydrogenase B-Natriuretic Peptide TSH Urine Osmolality Ur Random Sodium 75.0 Urine Creatinine 34.98 01/10/23 01/10/23 01/10/23 01:24 01:24 02:42 MCV MCH MCHC RDW Plt Count MPV Absolute Nucleated RBC Nucleated RBC % (auto) Anion Gap 18 Estim Creat Clear Calc 48.4 Estimated GFR > 60 POC Glucose Random Glucose 71 Osmolality 248 L Calcium 8.5 Lactate Dehydrogenase B-Natriuretic Peptide TSH Urine Osmolality 402 Ur Random Sodium Urine Creatinine 01/10/23 01/10/23 01/10/23 08:07 08:07 08:07 MCV 90.6 MCH 29.4 MCHC 32.5 RDW 14.2 Plt Count 241 MPV 10.0 Absolute Nucleated RBC 0.000 Nucleated RBC % (auto) 0.0 Anion Gap 14 Cancelled Estim Creat Clear Calc 50.3 Cancelled Estimated GFR > 60 Cancelled POC Glucose Random Glucose 54 L* Cancelled Osmolality Calcium 8.6 Cancelled Lactate Dehydrogenase B-Natriuretic Peptide TSH Urine Osmolality Ur Random Sodium Urine Creatinine 01/10/23 01/10/23 09:03 09:47 MCV MCH MCHC RDW Plt Count MPV Absolute Nucleated RBC Nucleated RBC % (auto) Anion Gap 15 Estim Creat Clear Calc 47.1 Estimated GFR > 60 POC Glucose 129 H Random Glucose 120 H Osmolality Calcium 8.6 Lactate Dehydrogenase B-Natriuretic Peptide TSH 0.30 L Urine Osmolality Ur Random Sodium Urine Creatinine Assessment and Plan (1) Acute hyponatremia: Status: Acute (2) Respiratory failure with hypoxia: Status: Acute (3) COPD exacerbation: Status: Acute Plan 72F PMH chronic hypoxic respiratory failure on 3L home O2 due to COPD, suspected lung cancer (patient has refused work up or treatement), HTN, HLD, GERD, anxiety, presented with fevers, generalized weakness, found to have covid Acute hyponatremia Na dropped to 116 from 135 in 2 days, was not transferred to ICU as level improved and was clinically stable overnight based on urine studies, could be SIADH water restriction NaCl 3% 30cc\hr for now Urea supplement BMP Q4 goal to correct 6-8 in 24 hours Nephrology evaluation pending chronic hypoxic respiratory failure due to COPD with acute decompensation due to covid at baseline o2 Restart Prednisone for exacerbation Nebulizers for now + viral sepsis due to covid completed paxlovid, decadron +ve repeat Covid, planned DC on 01/12/23 hyponatremia resolved DC IVF Anemia Hb dropped to 10 from baseline >12 normal iron stores, pending B12, folate might need further work up as outpatient htn diltiazem and lisinopril suspected lung cancer patient not interested in further work up or treatment anxiety w panic attacks use Ativan PRN full code dvt prophylaxis lovenox reason for continued hospitalization:weakness, hyponatremia pending nephrology eval and clinical improvement waiting placement Time Spent With Patient Time: Total time managing care of this patient today ____ minutes. Quality Stroke Does the patient have a stroke diagnosis?: No VTE Prior VTE?: No VTE Risk Level:: Medical - moderate - high VTE Device Contraindication: Treatment Not Indicated VTE Drug Contraindication: N/A - Med Ordered
--- NOTE | 2023-01-10 14:43 | HO.SKINPHOTO ---
Location: left foot medial/lateral Category: Stage: Length: Width: Depth: cm Location: Category: Stage: Length: Width: Depth: cm Location: Category: Stage: Length: Width: Depth: cm Location: Category: Stage: Length: Width: Depth: cm Location: Category: Stage: Length: Width: Depth: cm Location: Category: Stage: Length: Width: Depth: cm
[2023-01-10 15:15] VITALS: BP 146/64; PULSE 108; RESP 20; TEMP 36.7; O2SAT 90
--- NOTE | 2023-01-10 15:59 | PM.CNNEP ---
History of Present Illness Reason for Consult Consult date: 01/10/23 Reason for consult: Hyponatemia Chief Complaint Chief complaint: generalized weakness, COVID+, Hypoxia History of Present Illness Narrative: Kadi is a 72 yo woman with severe COPD, Left upper lobe lung cancer for which she has declined treatment admitted on 01/01 with weakness and acute COVID infection and worsening pulm process by imaging. Her admission sodium was 135. We are called to see her now for drop in sodium to 119. Overnight, we started 3 percent saline without yet much response in the sodium level. Her sodium was 135 on 01/07; she was getting IVF. On 01/09 the sodium was down to 117. Steroids were used initially as part of her covid treatment and these stopped 01/07. She hasn't been eating well since admission. Review of Systems Review of Systems weakness Comments: wt loss Comments: sob, nonprod cough Comments: no nausea or diarrhea PMFSH Past Medical History Medical History Anxiety Back pain COPD (chronic obstructive pulmonary disease) COPD exacerbation Depression History of non-ST elevation myocardial infarction (NSTEMI) (~2021) HTN (hypertension) Hyperlipidemia Hypoxemia Mass of left lung Osteoporosis (~2016) Respiratory failure with hypoxia Smoker Tachycardia Tubular adenoma of colon (~2003) Surgical History Surgical History History of cardiac cath History of colonoscopy History of esophagogastroduodenoscopy (EGD) Social History Social History Household Members: Family Housing: House Do you presently have visiting nurse or other home services: No Alcohol intake: never Patient Tobacco Use Status: Former Tobacco user Tobacco use type: Cigarette Cigarettes Per Day: 2 Smoked in Last 30 Days: No e-Cigarette/Vaping Use: Never Used Use of substances other than those prescribed or required for medical reasons: No Currently Displaying Signs/Symptoms of Drug Intoxication Withdrawal: No Have you been hit, kicked, punched, or otherwise hurt by someone within the past year? If so, by whom?: No Do you feel safe in your current relationship?: No Current Relationship Is there a partner from a previous relationship who is making you feel unsafe now?: No Are you made to feel afraid or neglected: No Advance Directives: Yes Advance Directives on File: Yes Advance Directives Date on File: 01/01/23 Do you have thoughts of harming others: None Do you have a plan to hurt others: No Plan Recently lost weight without trying: Unsure Eating poorly because of decreased appetite: No Nutrition Risks: No Nutritional Risk Patient : No service: No Current occupational status: retired Cognitive needs: No Hearing needs: No Vision needs: Yes Meds Allergies Allergy/AdvReac Type Severity Reaction Status Date / Time buspirone [From BuSpar] Allergy Unknown Stomach Verified 12/03/22 16:22 Upset nitrofurantoin Allergy Unknown Difficulty Verified 12/03/22 16:22 Breathing, COPD exacerbation sulfamethoxazole Allergy Unknown difficulty Verified 12/03/22 16:22 [From breathing, Sulfamethoxazole-Trimethoprim] COPD exacerbation trimethoprim Allergy Unknown difficulty Verified 12/03/22 16:22 [From breathing, Sulfamethoxazole-Trimethoprim] COPD exacerbation bupropion [From Wellbutrin] AdvReac Unknown insomnia Verified 12/03/22 16:22 fluoxetine [Prozac] AdvReac Unknown anxiety Verified 12/03/22 16:22 sertraline [Zoloft] AdvReac Unknown stomach Verified 12/03/22 16:22 upset Statins Depletion Allergy Unknown statin Uncoded 12/03/22 16:22 intolerant Active Medications: Current Medications Acetaminophen (Acetaminophen 325 Mg Tablet) 650 mg PO Q6H PRN PRN Reason: Pain, Mild (Pain Scale 1-3) Last Admin: 01/09/23 09:51 Dose: 650 mg Albuterol Sulfate (Albuterol Sulfate 90 Mcg 8 Gm Inhaler) 2 puff INHALE Q6H PRN PRN Reason: for wheezing Last Admin: 01/08/23 16:33 Dose: 2 puff Albuterol/Ipratropium (Albuterol/Iprat 2.5/0.5mg 3 Ml Ampul.Neb) 3 ml INHALE RQ4H PRN PRN Reason: Shortness of Breath/Wheezing Diltiazem HCl (Diltiazem Hcl Cd 120 Mg Cap.Er.Deg) 120 mg PO DAILY [facility]; Protocol Last Admin: 01/10/23 10:00 Dose: 120 mg Docusate Sodium (Docusate Sodium 100 Mg Capsule) 100 mg PO DAILY PRN PRN Reason: Constipation Enoxaparin Sodium (Enoxaparin Sodium 40 Mg/0.4 Ml Syringe) 40 mg SUBCUT Q24H [facility] Last Admin: 01/09/23 17:14 Dose: 40 mg Fluticasone/Vilanterol (Fluticasone/Vilanterol 100/25 Blst.W.Dev) 1 puff INHALE RDAILY [facility] Last Admin: 01/10/23 07:59 Dose: Not Given Guaifenesin (Guaifenesin La 600 Mg Tab.Er.12h) 600 mg PO BID [facility] Last Admin: 01/10/23 10:00 Dose: 600 mg Levalbuterol HCl (Levalbuterol Hcl 1.25 Mg/3 Ml Vial.Neb) 1.25 mg INHALE RTID [facility] Last Admin: 01/10/23 15:31 Dose: Not Given Lisinopril (Lisinopril 5 Mg Tablet) 5 mg PO DAILY [facility]; Protocol Last Admin: 01/09/23 09:51 Dose: 5 mg Lorazepam (Lorazepam 1 Mg Tablet) 1 mg PO TID PRN PRN Reason: anxiety/restlessness Omeprazole (Omeprazole 20 Mg Capsule.Dr) 20 mg PO DAILY@0630 [facility] Last Admin: 01/10/23 05:44 Dose: 20 mg Ondansetron HCl (Ondansetron Hcl 4 Mg/2 Ml Vial) 4 mg IVPUSH Q8H PRN PRN Reason: Nausea and Vomiting Pharmacy Consult (Consult Rx Perform Med Rec) 1 each MISCELLANE ONCE PRN PRN Reason: Consult order Prednisone (Prednisone 20 Mg Tablet) 40 mg PO DAILY [facility] Last Admin: 01/10/23 10:00 Dose: 40 mg Sodium Chloride (0.9 % Sodium Chloride Flush 3 Ml Syringe) 3 ml IVFLUSH QSHIFT [facility] Last Admin: 01/10/23 10:00 Dose: 3 ml Tiotropium Gallitzin (Tiotropium Gall[place]in 2.5 Mcg Inhaler) 1 puff INHALE RDAILY [facility] Last Admin: 01/10/23 08:00 Dose: Not Given Vitamin D (Cholecalciferol (Vitamin D3) 25 Mcg Tablet) 25 mcg PO BID [facility] Last Admin: 01/10/23 10:00 Dose: 25 mcg Home Medications Medication Instructions Recorded Confirmed Last Taken Type cholecalciferol (vitamin D3) 25 25 mcg PO BID 09/30/21 01/01/23 01/01/23 History mcg (1,000 unit) capsule fluticasone 250 mcg-salmeterol 50 1 ea inhalation BID 01/01/23 01/01/23 01/01/23 History mcg/dose blistr powdr for inhalation (Frantzphilipprobert Inhub) omeprazole 20 mg capsule,delayed 20 mg PO DAILY@0630 01/01/23 01/01/23 01/01/23 History release tiotropium bromide 18 mcg capsule 1 cap inhalation DAILY@1500 01/01/23 01/01/23 12/31/22 History with inhalation device Physical Exam Vital Signs: Last Vital Signs Temp 98.0 F 01/10/23 15:15 Pulse 108 H 01/10/23 15:15 Resp 20 01/10/23 15:15 BP 146/64 H 01/10/23 15:15 Pulse Ox 90 L 01/10/23 15:15 O2 Del Method Nasal Cannula 01/10/23 15:15 O2 Flow Rate 3 01/10/23 15:15 Oxygen Flow Rate 4 01/01/23 13:42 BMI result Body Mass Index 20.8 Const Other: Elderlyy woman looking chronically ill and older than stated age HEENT Other: eyes tearing Neck Other: no jvd or adenopathy Chest Other: rhnchi, some insp wheezes,dullness left lung field Cardio Other: RRR Jugular venous distension: no JVD GI Other: nondistended, nontender abd mateo normal sounds Skin Other: tenting, multiple actinic lesions and ecchyymses over arms Neuro Other: alert, interactive, appropriate, not confused Extrem Other: no edema Results Lab Results 01/10/23 08:07 01/10/23 09:03 Lab results: Chemistry 01/09/23 01/09/23 01/09/23 15:58 19:54 21:59 Sodium 117 L* 118 L* 116 L* Potassium 5.0 4.8 4.9 Carbon Dioxide 28 27 25 BUN 23 H 24 H 25 H Creatinine 0.84 0.84 0.84 Calcium 9.2 8.8 8.5 01/10/23 01/10/23 01/10/23 01:24 08:07 08:07 Sodium 119 L* 121 L Cancelled Potassium 4.6 4.3 Cancelled Carbon Dioxide 25 29 Cancelled BUN 24 H 22 H Cancelled Creatinine 0.77 0.74 Cancelled Calcium 8.5 8.6 Cancelled 01/10/23 09:03 Sodium 120 L* Potassium 3.8 Carbon Dioxide 28 BUN 22 H Creatinine 0.79 Calcium 8.6 Hematology 01/09/23 01/10/23 15:58 08:07 WBC 16.4 H 14.1 H Hgb 11.1 L 10.0 L Plt Count 300 241 Urine Studies 01/09/23 01/10/23 21:39 02:42 Urine Osmolality 402 Urine Creatinine 34.98 Assessment and Plan (1) Acute hyponatremia: Status: Acute urine studies suggest possible SIADH since the drop began after stopping steroids, I recommend ruling out adrenal insufficiency with am cortisol tomorrow she appears actually mildly hypovolemic on exam (2) COVID: Status: Acute (3) Mass of left lung: Status: Acute (4) COPD (chronic obstructive pulmonary disease): Status: Acute Plan 3 percent saline until sodium 125 or so then stop Urea 30 grams bid am cortisol level check q 8 hr sodium levels Time Spent With Patient Time: Total time managing care of this patient today ____ minutes. Procedures Date of Service Date of Service: 01/10/23
[2023-01-10 16:52] LABS: Anion Gap 13 (12-20); Blood Urea Nitrogen 45 mg/dL (9-16); Calcium 8.8 mg/dL (8.4-10.2); Carbon Dioxide 31 mmol/L (22-29); Chloride 82 mmol/L (96-108); Estimated Glomerular Filt Rate > 60; Glucose Random 134 mg/dL (60-115); Potassium 4.1 mmol/L (3.3-5.1); Sodium 122 mmol/L (135-145)
[2023-01-10] MEDS: Enoxaparin Sodium 40 MG/0.4 ML SYRINGE SUBCUT (17:47)
[2023-01-10] MEDS: Sodium Chloride 3 % 100 ML 25 ML IV ×2 (17:47→23:32)
[2023-01-10 19:10] VITALS: BP 102/55; PULSE 80; RESP 20; TEMP 36.7; O2SAT 95
[2023-01-10] MEDS: levalbuterol HCL 1.25 MG/3 ML VIAL.NEB INHALE (20:04)
[2023-01-10 20:05] VITALS: PULSE 104; RESP 20; O2SAT 98
[2023-01-10 22:01] LABS: Anion Gap 14 (12-20); Blood Urea Nitrogen 39 mg/dL (9-16); Carbon Dioxide 30 mmol/L (22-29); Chloride 83 mmol/L (96-108); Creatinine Clr Calc Pharmacy 51.7; Estimated Glomerular Filt Rate > 60; Glucose Random 115 mg/dL (60-115); Potassium 3.7 mmol/L (3.3-5.1); Sodium 123 mmol/L (135-145)
[2023-01-11 01:52] LABS: Anion Gap 15 (12-20); Blood Urea Nitrogen 34 mg/dL (9-16); Calcium 8.5 mg/dL (8.4-10.2); Carbon Dioxide 28 mmol/L (22-29); Chloride 87 mmol/L (96-108); Creatinine Clr Calc Pharmacy 59.1; Estimated Glomerular Filt Rate > 60; Glucose Random 91 mg/dL (60-115); Potassium 3.8 mmol/L (3.3-5.1); Sodium 126 mmol/L (135-145)
[2023-01-11 02:58] VITALS: BP 140/57; PULSE 98; RESP 20; TEMP 36.2; O2SAT 95
--- NOTE | 2023-01-11 03:09 | PC.NURSE ---
Pt Na level around 1am = 126, Dr. Poole was notified, 3% NSS IVf was stopped.
[2023-01-11] MEDS: Omeprazole 20 MG CAPSULE.DR PO (05:15)
[2023-01-11 07:40] LABS: Anion Gap 13 (12-20); Blood Urea Nitrogen 28 mg/dL (9-16); Calcium 8.7 mg/dL (8.4-10.2); Carbon Dioxide 31 mmol/L (22-29); Chloride 87 mmol/L (96-108); Creatinine Clr Calc Pharmacy 54.7; Estimated Glomerular Filt Rate > 60; Glucose Random 73 mg/dL (60-115); Potassium 3.6 mmol/L (3.3-5.1); Sodium 127 mmol/L (135-145)
[2023-01-11 07:41] VITALS: BP 112/54; PULSE 112; RESP 20; TEMP 36.6; O2SAT 95
[2023-01-11 07:43] LABS: Anion Gap 13 (12-20); Blood Urea Nitrogen 28 mg/dL (9-16); Calcium 8.6 mg/dL (8.4-10.2); Carbon Dioxide 31 mmol/L (22-29); Chloride 87 mmol/L (96-108); Creatinine Clr Calc Pharmacy 55.5; Estimated Glomerular Filt Rate > 60; Glucose Random 73 mg/dL (60-115); Potassium 3.5 mmol/L (3.3-5.1); Sodium 127 mmol/L (135-145)
[2023-01-11] MEDS: predniSONE 20 MG TABLET 40 MG PO (08:58)
[2023-01-11] MEDS: guaiFENesin LA 600 MG TAB.ER.12H PO (08:58)
[2023-01-11] MEDS: 0.9 % Sodium Chloride Flush 3 ML SYRINGE IVFLUSH ×3 (08:58→21:43)
[2023-01-11] MEDS: dilTIAZem HCL CD 120 MG CAP.ER.DEG PO (08:58)
[2023-01-11] MEDS: Cholecalciferol (Vitamin D3) 25 MCG TABLET PO ×2 (08:58→21:43)
[2023-01-11 10:43] LABS: Anion Gap 13 (12-20); Blood Urea Nitrogen 28 mg/dL (9-16); Calcium 8.6 mg/dL (8.4-10.2); Carbon Dioxide 30 mmol/L (22-29); Chloride 87 mmol/L (96-108); Estimated Glomerular Filt Rate > 60; Glucose Random 118 mg/dL (60-115); Potassium 3.7 mmol/L (3.3-5.1); Sodium 126 mmol/L (135-145)
--- NOTE | 2023-01-11 12:14 | P.PNIM_ITS ---
Subjective Subjective Date of Service: 01/11/23 Interval History: Seen and evaluated looks better overall less dyspnea and anxiety HR still going up on occasions Improved Na to 126 tolerating diet Review of Systems Review of Systems: Yes all other systems are reviewed and are negative Physical Exam Vital Signs: Vital Signs: Last Vital Signs Temp 97.9 F 01/11/23 07:41 Pulse 112 H 01/11/23 07:41 Resp 20 01/11/23 07:41 BP 112/54 L 01/11/23 07:41 Pulse Ox 95 01/11/23 07:41 O2 Del Method Nasal Cannula 01/11/23 07:41 O2 Flow Rate 3 01/11/23 07:41 Oxygen Flow Rate 4 01/01/23 13:42 BMI result Body Mass Index 20.8 Const: Other: Constitutional : Awake, interactive, not in distress Neck : Normal inspection, Supple Cardiovascular : RRR, no JVP, no lower extremity edema Respiratory : decreased bilateral air entry, no crackles, on O2 supplement Gastrointestinal: soft, lax, Normal bowel sounds, Non tender Skin : Warm, Dry Neurological : Alert & oriented to self and place, No focal deficit Objective Data Active Medications Acetaminophen (Acetaminophen 325 Mg Tablet) 650 mg PO Q6H PRN PRN Reason: Pain, Mild (Pain Scale 1-3) Last Admin: 01/09/23 09:51 Dose: 650 mg Documented By: FABIENNE Albuterol Sulfate (Albuterol Sulfate 90 Mcg 8 Gm Inhaler) 2 puff INHALE Q6H PRN PRN Reason: for wheezing Last Admin: 01/08/23 16:33 Dose: 2 puff Documented By: NEGRO Albuterol/Ipratropium (Albuterol/Iprat 2.5/0.5mg 3 Ml Ampul.Neb) 3 ml INHALE RQ4H PRN PRN Reason: Shortness of Breath/Wheezing Diltiazem HCl (Diltiazem Hcl Cd 120 Mg Cap.Er.Deg) 120 mg PO DAILY [facility]; Protocol Last Admin: 01/11/23 08:58 Dose: 120 mg Documented By: SANJIV Docusate Sodium (Docusate Sodium 100 Mg Capsule) 100 mg PO DAILY PRN PRN Reason: Constipation Enoxaparin Sodium (Enoxaparin Sodium 40 Mg/0.4 Ml Syringe) 40 mg SUBCUT Q24H [facility] Last Admin: 01/10/23 17:47 Dose: 40 mg Documented By: SANJIV Fluticasone/Vilanterol (Fluticasone/Vilanterol 100/25 Blst.W.Dev) 1 puff INHALE RDAILY [facility] Last Admin: 01/11/23 07:46 Dose: Not Given Documented By: EDILSON Non-Admin Reason: med unavail pharmacy called Guaifenesin (Guaifenesin La 600 Mg Tab.Er.12h) 600 mg PO BID [facility] Last Admin: 01/11/23 08:58 Dose: 600 mg Documented By: SANJIV Sodium Chloride (Sodium Chloride 3 %) 100 mls @ 25 mls/hr IV ONCE [facility] Stop: 01/11/23 21:29 Last Infusion: 01/11/23 02:13 Dose: 0 mls/hr Documented By: DIALLO Levalbuterol HCl (Levalbuterol Hcl 1.25 Mg/3 Ml Vial.Neb) 1.25 mg INHALE RTID [facility] Last Admin: 01/11/23 07:47 Dose: Not Given Documented By: EDILSON Non-Admin Reason: Patient Asleep Lisinopril (Lisinopril 5 Mg Tablet) 5 mg PO DAILY [facility]; Protocol Last Admin: 01/09/23 09:51 Dose: 5 mg Documented By: FABIENNE Lorazepam (Lorazepam 1 Mg Tablet) 1 mg PO TID PRN PRN Reason: anxiety/restlessness Omeprazole (Omeprazole 20 Mg Capsule.Dr) 20 mg PO DAILY@0630 [facility] Last Admin: 01/11/23 05:15 Dose: 20 mg Documented By: DIALLO Ondansetron HCl (Ondansetron Hcl 4 Mg/2 Ml Vial) 4 mg IVPUSH Q8H PRN PRN Reason: Nausea and Vomiting Pharmacy Consult (Consult Rx Perform Med Rec) 1 each MISCELLANE ONCE PRN PRN Reason: Consult order Prednisone (Prednisone 20 Mg Tablet) 40 mg PO DAILY [facility] Last Admin: 01/11/23 08:58 Dose: 40 mg Documented By: SANJIV Sodium Chloride (0.9 % Sodium Chloride Flush 3 Ml Syringe) 3 ml IVFLUSH QSHIFT [facility] Last Admin: 08/13/23 08:58 Dose: 3 ml Documented By: SANJIV Tiotropium Andrews (Tiotropium Andrews 2.5 Mcg Inhaler) 1 puff INHALE RDAILY [facility] Last Admin: 01/11/23 07:47 Dose: Not Given Documented By: EDILSON Non-Admin Reason: Patient Asleep Urea (Urea 15 Gm Powder) 30 gm PO BID [facility] Vitamin D (Cholecalciferol (Vitamin D3) 25 Mcg Tablet) 25 mcg PO BID [facility] Last Admin: 01/11/23 08:58 Dose: 25 mcg Documented By: SANJIV Labs 01/10/23 08:07 01/11/23 10:20 Labs: Laboratory Results - last 24 hr 01/10/23 01/10/23 01/10/23 08:07 16:23 21:14 Anion Gap Cancelled 13 14 Estim Creat Clear Calc Cancelled 51.0 51.7 Estimated GFR Cancelled > 60 > 60 Random Glucose Cancelled 134 H 115 Calcium Cancelled 8.8 9.0 01/11/23 01/11/23 01/11/23 01:26 06:34 06:34 Anion Gap 15 13 13 Estim Creat Clear Calc 59.1 55.5 54.7 Estimated GFR > 60 > 60 > 60 Random Glucose 91 73 73 Calcium 8.5 8.6 8.7 01/11/23 10:20 Anion Gap 13 Estim Creat Clear Calc 51.0 Estimated GFR > 60 Random Glucose 118 H Calcium 8.6 Assessment and Plan (1) Acute hyponatremia: Status: Acute (2) COVID: Status: Acute (3) Hypoxia: Status: Acute (4) Generalized weakness: Status: Acute Plan 72F PMH chronic hypoxic respiratory failure on 3L home O2 due to COPD, suspected lung cancer (patient has refused work up or treatement), HTN, HLD, GERD, anxiety, presented with fevers, generalized weakness, found to have covid Acute hyponatremia likely 2/2 SIADH or steroid def. Na improved to 126 overnight with 3% NaCl and Urea water restriction Urea supplement Follow BMP Q6 goal to correct 6-8 in 24 hours Nephrology evaluation appreciated, check free cortisol ( can be affected by the fact that patient on Prednisone) chronic hypoxic respiratory failure due to COPD with acute decompensation due to covid at baseline o2 Restart Prednisone for exacerbation Nebulizers for now + viral sepsis due to covid completed vignesh, decadron +ve repeat Covid, planned DC on 01/12/23 hyponatremia resolved DC IVF Anemia Hb dropped to 10 from baseline >12 normal iron stores, pending B12, folate might need further work up as outpatient htn diltiazem and lisinopril suspected lung cancer patient not interested in further work up or treatment anxiety w panic attacks use Ativan PRN full code dvt prophylaxis lovenox reason for continued hospitalization:weakness, hyponatremia pending clinical improvement waiting placement Time Spent With Patient Time: Total time managing care of this patient today ____ minutes. Quality Stroke Does the patient have a stroke diagnosis?: No VTE Prior VTE?: No VTE Risk Level:: Medical - moderate - high VTE Device Contraindication: Treatment Not Indicated VTE Drug Contraindication: N/A - Med Ordered
[2023-01-11] MEDS: Urea 15 GM POWDER 30 GM PO ×2 (12:45→21:43)
[2023-01-11 14:51] VITALS: BP 118/59; PULSE 95; RESP 17; TEMP 36.6; O2SAT 100
[2023-01-11] MEDS: Enoxaparin Sodium 40 MG/0.4 ML SYRINGE SUBCUT (16:50)
[2023-01-11] MEDS: levalbuterol HCL 1.25 MG/3 ML VIAL.NEB INHALE (18:44)
[2023-01-11 18:45] VITALS: PULSE 95; RESP 20; O2SAT 97
[2023-01-11 19:17] LABS: Anion Gap 16 (12-20); Blood Urea Nitrogen 40 mg/dL (9-16); Calcium 9.4 mg/dL (8.4-10.2); Carbon Dioxide 29 mmol/L (22-29); Chloride 87 mmol/L (96-108); Estimated Glomerular Filt Rate > 60; Glucose Random 125 mg/dL (60-115); Potassium 3.8 mmol/L (3.3-5.1); Sodium 128 mmol/L (135-145)
[2023-01-11 20:00] VITALS: BP 111/55; PULSE 117; RESP 14; TEMP 36; O2SAT 94
[2023-01-11] MEDS: Acetaminophen 325 MG TABLET 650 MG PO (21:51)
[2023-01-12] VITALS (30 sets, daily range): BP systolic 0–100; BP diastolic 0–72; PULSE 0–153; RESP 14–37; TEMP 35.5–37; O2SAT 75–100; BMI 20.8
[2023-01-12 01:17] LABS: Anion Gap 16 (12-20); Blood Urea Nitrogen 44 mg/dL (9-16); Calcium 9.1 mg/dL (8.4-10.2); Carbon Dioxide 26 mmol/L (22-29); Chloride 88 mmol/L (96-108); Creatinine Clr Calc Pharmacy 43.3; Estimated Glomerular Filt Rate > 60; Glucose Random 108 mg/dL (60-115); Sodium 126 mmol/L (135-145)
--- NOTE | 2023-01-12 05:17 | PM.EVENT ---
Event Note Date of Service: 01/12/23 Event Note: Patient hypotensive with blood pressures in the 60s over 30s, patient lethargic but arousable, answers questions appropriately. Temperature of 97 degrees, normal respiratory rate, started on fluids, given Decadron, ICU was notified, patient will be transferred Time Spent With Patient Time: Total time managing care of this patient today ____ minutes.
--- NOTE | 2023-01-12 05:27 | PC.NURSE ---
Pt's B/p was 84/35 pulse 104 sats 96% on 5L via oxymask.manually B/P was 60/42.rapid response called .pt given LR bolus,5mg po midodrine and iv decadron.pt transfered to ICU.
--- NOTE | 2023-01-12 05:40 | PM.SEPSIS ---
Sepsis Event Note Evaluation Sepsis screening result: No Definite Risk Current stage of sepsis: severe sepsis Reason for ruling out sepsis: Hypotension Initial hypotension due to sepsis/infection: SBP < 90 mmHg and MAP < 65 mmHg Possible source: genitourinary Focused Exam Vital signs: Vital Signs Temp Pulse Resp BP Pulse Ox O2 Del Method O2 Flow Rate 01/12/23 04:45 60/42 L 01/12/23 04:17 104 H 84/35 L 96 Oxymask 5 01/12/23 03:54 95.9 F L 153 H 14 70/46 L 88 L Oxymask 5 01/11/23 20:00 96.8 F 117 H 14 111/55 L 94 Oxymask 5 01/11/23 18:45 95 20 Respiratory exam: Present decreased breath sounds Cardiovascular exam: RRR and tachycardia Capillary refill: > 2 Seconds Peripheral pulse strength: 3+ Normal Peripheral pulse location: Femoral Skin exam: mottling Date exam was performed: 01/12/23 Time exam was performed: 06:56 Bedside Monitoring Fluid responsiveness: not fluid responsive Date bedside monitoring was performed: 01/12/23 Time bedside monitoring was performed: 06:30 Problem List (1) Acute hyponatremia: Status: Acute (2) COVID: Status: Acute (3) Hypoxia: Status: Acute (4) Generalized weakness: Status: Acute
[2023-01-12] MEDS: Albumin Human 25 % 100 ML 133.33 ML IV ×2 (05:44→06:00)
[2023-01-12] MEDS: Piperacillin Sodium/Tazobactam 3.375 GM in 0.9 % Sodium Chloride 50 ML IV (06:02)
[2023-01-12] MEDS: vancomycin HCL 1,250 MG in 0.9 % Sodium Chloride 250 ML 166.67 MG IV (06:19)
[2023-01-12 06:33] LABS: VBG Base Excess 5.3 mmol/L; VBG HCO3 34 mmol/L (22-26); VBG pCO2 78 mmHg; VBG pH 7.24 (7.32-7.43); VBG pO2 42 mmHg
[2023-01-12 06:41] LABS: Appearance Urine Turbid; Color Urine Yellow; Glucose Urine UA Negative (Negative); Leukocyte Esterase Urine Moderate (2+) (Negative); Nitrite Urine Negative (Negative); Specific Gravity - Urine 1.025 (1.005-1.025); UMIC TRIGGER UACC YES; Urine Blood Moderate (2+) (Negative); Urine Ketones Trace mg/dL (Negative); Urine Protein 300 (3+) mg/dL (Neg-Trace)
[2023-01-12 07:00] LABS: Bacteria Urine 3+ (None Seen); Hyaline Casts Urine 0-2 /LPF (0-2); RBC Urine >20 /HPF (0-2); UACC Culture Trigger YES; WBC Urine >50 /HPF (0-5)
[2023-01-12] MEDS: Norepinephrine Bitartrate/D5W 8 MG/250 ML PLAST..BAG 4.69 MG IV (07:00)
--- NOTE | 2023-01-12 07:00 | PHA.PROG ---
Admission Date/Time: January 01, 2023 17:40 Indication: Other Weight in k kg Adjusted body weight in K.68 Clay body weight in K.8 Obesity Dosing Indication % IBW: Not obese Serum Creatinine - Last 168 Hours 01/07/23 01/09/23 01/09/23 06:01 15:58 19:54 Creatinine 0.97 0.84 0.84 01/09/23 01/10/23 01/10/23 21:59 01:24 08:07 Creatinine 0.84 0.77 0.74 01/10/23 01/10/23 01/10/23 08:07 08:07 09:03 Creatinine Cancelled Cancelled 0.79 01/10/23 01/10/23 01/11/23 16:23 21:14 01:26 Creatinine 0.73 0.72 0.63 01/11/23 01/11/23 01/11/23 06:34 06:34 10:20 Creatinine 0.67 0.68 0.73 01/11/23 01/12/23 18:37 00:53 Creatinine 0.76 0.86 Estimated CrCl and GFR - Last 168 Hours 01/07/23 01/09/23 01/09/23 06:01 15:58 19:54 Estim Creat Clear Calc 38.3 44.3 44.3 Estimated GFR 56 > 60 > 60 01/09/23 01/10/23 01/10/23 21:59 01:24 08:07 Estim Creat Clear Calc 44.3 48.4 50.3 Estimated GFR > 60 > 60 > 60 01/10/23 01/10/23 01/10/23 08:07 08:07 09:03 Estim Creat Clear Calc Cancelled Cancelled 47.1 Estimated GFR Cancelled Cancelled > 60 01/10/23 01/10/23 01/11/23 16:23 21:14 01:26 Estim Creat Clear Calc 51.0 51.7 59.1 Estimated GFR > 60 > 60 > 60 01/11/23 01/11/23 01/11/23 06:34 06:34 10:20 Estim Creat Clear Calc 55.5 54.7 51.0 Estimated GFR > 60 > 60 > 60 01/11/23 01/12/23 18:37 00:53 Estim Creat Clear Calc 49.0 43.3 Estimated GFR > 60 > 60 Vancomycin Loading Dose: 1250 mg Current Vancomycin Dosing Regimen: 1000 mg Vancomycin Monitoring using AUC goal of 400 - 600 range with trough as surrogate marker: 477 Date and Time for next Vancomycin Level to be drawn: 01/14 @0500 Pharmacist Comments on Vancomycin Plan: Q24H due to age Vancomycin dosing will take advantage of [employer] as a clinical decision support tool that uses Bayesian modeling to calculate individual patient's pharmacokinetic parameters and forecast the patient's drug concentration time course with the target goal AUC 24 range of 400 - 600 mg/L/hr.
--- NOTE | 2023-01-12 07:22 | PC.NURSE ---
This mortgage or loan underwriter responded to [facility] for rapid response called at 04:55am for hypotension. On arrival to pt's bedside pt was noted to be hypotensive to SBP 70's as heard on manual, confirmed with cuff BP. Pt's extremities were noted to be cool to touch with mottling noted to BLE and weakly palpable peripheral pulses. Correlating cuff BP initially 79/39 (map 46). Pt immediately placed in trendelenburg, 1L bolus via pressure bag initiated per provider at bedside. Interventions initially effective with improvement to 91/37 though short lived. orders for decdron, total of 14mg given as per Dr. Hannah verbal orders. BP at 05:15 s/p decadron 75/35 while pt was in [place]. Pt was lethargic though arousable to voice and responding appropriately to orientation questions, able to state name, , place, and year. Pt noted to be NSR on tele. Rectal temp obtained showing 99.3. Decision made to escalate care for persistent hypotension and patient was transferred to ICU with supervisor sewing room and mortgage or loan underwriter. While in ICU additional large-guage peripheral IV access was place for total of three. Pt given albumin x2, zosyn x1, vanco x1, and peripheral levophed initiated and titrated per provider at bedside. Cavazos catheter with temperature sensing probe placed, difficulty obtaining peripheral temperature. Core temp 98.1 on placement. Urine cloudy with sediment. Urine labs sent as ordered. Multiple attempts to obtain labs unsuccessful. Pt respirations became labored with persistent spo2 in 80's, placed on 100% bipap. Spo2 remained in mid 80's despite bipap. Handoff report given. Pt intubated by provider at 0700 hour
--- NOTE | 2023-01-12 07:40 | W.PM.CCHP ---
Procedures Date of Service Date of Service: 01/12/23 <Judy Harp NP - Last Filed: 01/12/23 07:44> 01/12/23 <Sage Lawler MD - Last Filed: 01/12/23 08:35> Intubation Intubation Comments: The patient developed progressive respiratory fatigue, somnolence, and hypoxemia, despite BiPAP. ? She was preoxygenated with BiPAP 100%. ? RSI was carried out with the meds above.? The glottis was easily visualized with 3 GlideScope, and the trachea was intubated with a 7.5 ETT via? indirect video visualization, atraumatic.? BSBE, +CO2, SpO2 maintained.? The tube was secured at 25 cm at the upper lip. The patient tolerated the procedure well with no complications. <Judy Harp NP - Last Filed: 01/12/23 07:44> Consent for Procedure: Emergent-no informed consent obtained <Judy Harp NP - Last Filed: 01/12/23 07:44> Time out performed: Yes <Judy Harp NP - Last Filed: 01/12/23 07:44> Sedative: propofol <Judy Harp NP - Last Filed: 01/12/23 07:44> Mg given: 50 <Judy Harp NP - Last Filed: 01/12/23 07:44> Laryngoscope: fiber optic video scope <Judy Harp NP - Last Filed: 01/12/23 07:44> ET tube size: 7.5 <Judy Harp NP - Last Filed: 01/12/23 07:44> ET tube uncuffed: Yes <Judy Harp NP - Last Filed: 01/12/23 07:44> Tube secured depth (cm): 25 <ABDIRAHMAN Toribio Last Filed: 01/12/23 07:44> Tube secured location: lips <ABDIRAHMAN Toribio Last Filed: 01/12/23 07:44> Tube placement confirmation: visualized tube passing through cords, equal breath sounds bilaterally and confirmation by capnometry <ABDIRAHMAN Toribio Last Filed: 01/12/23 07:44> Patient tolerated procedure: well and no complications <Judy Harp OIL BURNER JOURNEYMAN - Last Filed: 01/12/23 07:44> Intubation complications: none <Judy Harp NP - Last Filed: 01/12/23 07:44>
[2023-01-12 07:49] LABS: Hematocrit 26.5 % (37.0-47.0); Hemoglobin 8.4 g/dl (12.0-16.0); Mean Corpuscular HGB Conc 31.7 g/dl (31.0-35.0); Mean Corpuscular Hemoglobin 29.7 pg (27.0-33.0); Mean Corpuscular Volume 93.6 fL (80.0-98.0); Platelet Count 147 X10*3/uL (160-400); Red Blood Count 2.83 X10*6/uL (4.20-5.50); Red Cell Distribution Width 14.6 % (11.0-16.0)
[2023-01-12] MEDS: EPINEPHrine 1 MG/10 ML SYRINGE IVPUSH ×2 (07:52→08:08)
[2023-01-12] MEDS: Sodium Bicarbonate 8.4% 50 MEQ/50 ML VIAL 100 MEQ IVPUSH (08:00)
[2023-01-12 08:02] LABS: INTERNATIONAL NORM RATIO 1.1 (0.9-1.1); Prothrombin Time 12.9 SEC (11.1-13.3)
--- NOTE | 2023-01-12 08:02 | PM.SEPBOLA4 ---
Sepsis Bolus Exclusion <Judy Harp NP - Last Filed: 01/12/23 08:05> Sepsis Bolus Exclusion Date of Occurrence: 01/12/23 This patient met severe sepsis criteria due to the following condition(s):: Hypotension In my clinical judgement the administration of 30 ml/kg of crystalloid would be detrimental to this patient due to the patient's following conditions:: Other Other (must be specific):: Hyponatremia Replace the 30 mls/kg with (*zero amount not acceptable): *Note: One of the walsh must be documented Colloids amount given in mls:: 200 At a rate of (must be > 125 cchr):: 133 <Sage Lawler MD - Last Filed: 01/12/23 08:36> Sepsis Bolus Exclusion Other (must be specific):: Hyponatremia, hypoxemia
[2023-01-12 08:11] LABS: WBC ABN SCTR FOR CBC 1
[2023-01-12] MEDS: EPINEPHrine 5 MG in Dextrose 5 % 250 ML 30.6 MG IVCONT (08:14)
[2023-01-12 08:16] LABS: VBG Base Excess 7.2 mmol/L; VBG HCO3 34 mmol/L (22-26); VBG pCO2 64 mmHg; VBG pH 7.33 (7.32-7.43); VBG pO2 45 mmHg
[2023-01-12 08:19] LABS: Lactic Acid 1.6 mmol/L (0.5-2.0)
[2023-01-12] MEDS: fentaNYL citrate/NS 1,000 MCG/100 ML PLAST..BAG 2.5 MCG IVCONT (08:30)
--- NOTE | 2023-01-12 08:36 | W.PM.CCHP ---
Procedures Date of Service Date of Service: 01/12/23 Central Line Placement Right IJ: Central Line Comments: Right internal jugular triple-lumen central venous catheter emergently placed for refractory shock requiring high dose vasopressor support under ultrasound guidance and usual sterile conditions with no immediate complications. X-ray for line position is pending.
[2023-01-12 08:37] LABS: Band Neutrophils Percent 37 % (3-5); Neutrophils Percent Manual 63 % (45-73)
[2023-01-12 08:39] LABS: RBC Morphology NOTED
[2023-01-12 08:40] LABS: Acanthocytes 1+ (0-2) /OIF; Basophilic Stippling 2+ (3-5) /OIF; Burr Cells 1+ (0-2) /OIF; Neutrophils Absolute Manual 10.3 X10*3/uL (2.0-8.3); Ovalocytes 1+ (5-14) /OIF; Platelet Estimate DECREASED (NORMAL); Platelet Morphology Comment NORMAL; White Blood Count 10.3 X10*3/uL (4.8-10.8)
[2023-01-12 08:43] LABS: Albumin Level 3.3 g/dL (3.5-5.0); Blood Urea Nitrogen 46 mg/dL (9-16); Calcium 8.6 mg/dL (8.4-10.2); Chloride 90 mmol/L (96-108); Creatinine Clr Calc Pharmacy 34.1; Estimated Glomerular Filt Rate 49; Glucose Random 105 mg/dL (60-115); Magnesium 1.5 mg/dL (1.6-2.6); Potassium 4.1 mmol/L (3.3-5.1); Sodium 128 mmol/L (135-145)
[2023-01-12 08:47] LABS: Troponin-I High Sensitivity 59.8 ng/L (<3.5-17.0)
[2023-01-12 09:26] LABS: Anion Gap 14 (12-20); Carbon Dioxide 28 mmol/L (22-29)
[2023-01-12] MEDS: Albumin Human 25 % 100 ML IV (10:06)
[2023-01-12] MEDS: Hydrocortisone Sod Succ/PF 100 MG VIAL IVPUSH (10:06)
[2023-01-12] MEDS: Magnesium Sulfate/H2O 2 GM/50 ML PIGGYBACK IV (10:06)
[2023-01-12] MEDS: 0.9 % Sodium Chloride Flush 3 ML SYRINGE IVFLUSH (10:07)
[2023-01-12] MEDS: Norepinephrine Bitartrate/D5W 8 MG/250 ML PLAST..BAG 93.75 MG IV ×2 (10:18→12:40)
[2023-01-12 10:29] LABS: Venous Blood Gas Refer to POC result
[2023-01-12] MEDS: EPINEPHrine 5 MG in Dextrose 5 % 250 ML 61.2 MG IVCONT (11:45)
[2023-01-12 12:33] LABS: Anion Gap 21 (12-20); Blood Urea Nitrogen 47 mg/dL (9-16); Calcium 7.6 mg/dL (8.4-10.2); Carbon Dioxide 23 mmol/L (22-29); Chloride 86 mmol/L (96-108); Creatinine Clr Calc Pharmacy 25.5; Estimated Glomerular Filt Rate 35; Glucose Random 360 mg/dL (60-115); Potassium 4.5 mmol/L (3.3-5.1); Sodium 125 mmol/L (135-145)
--- NOTE | 2023-01-12 12:36 | MHC.SLORD ---
Speech Language Pathology Order Status: Patient now in ICU, intubated, NPO secondary to respiratory status. COMMUNICATION STUDIES PROFESSOR will continue to follow.
--- NOTE | 2023-01-12 12:49 | PM.CCN ---
Critical Care Event Note Summary Date of Service: 01/12/23 Code activated: No Narrative: Clinical course and overall very poor prognosis for meaningful recovery discussed with patient's family / healthcare proxy and decision has been reached to switch goals of care to palliation. Code status changed to comfort measures only. Will proceed with terminal extubation as per family request. Critical Care Time (minutes): 0
--- NOTE | 2023-01-12 12:57 | P.CONWO_ITS ---
History of Present Illness Data of Consult Service Date: 01/12/23 Requesting physician: John Feldman Primary Care Provider: Yesenia Mora MD HPI Reason for consult: open left footwound medial lateral aspect This consult was requested on January 10. The patient is now in the intensive care unit and is gravely ill. It is no longer appropriate for wound care consult because of acute, life-threatening illness. Kindly request withdrawal of consultation. Unable to see patient today for this reason. [facility] Medical History Anxiety Back pain COPD (chronic obstructive pulmonary disease) COPD exacerbation Depression History of non-ST elevation myocardial infarction (NSTEMI) (~2021) HTN (hypertension) Hyperlipidemia Hypoxemia Mass of left lung Osteoporosis (~2016) Respiratory failure with hypoxia Smoker Tachycardia Tubular adenoma of colon (~2003) Surgical History History of cardiac cath History of colonoscopy History of esophagogastroduodenoscopy (EGD) Social History Household Members: Family Housing: House Do you presently have visiting nurse or other home services: No Alcohol intake: never Patient Tobacco Use Status: Former Tobacco user Tobacco use type: Cigarette Cigarettes Per Day: 2 Smoked in Last 30 Days: No e-Cigarette/Vaping Use: Never Used Use of substances other than those prescribed or required for medical reasons: No Currently Displaying Signs/Symptoms of Drug Intoxication Withdrawal: No Have you been hit, kicked, punched, or otherwise hurt by someone within the past year? If so, by whom?: No Do you feel safe in your current relationship?: No Current Relationship Is there a partner from a previous relationship who is making you feel unsafe now?: No Are you made to feel afraid or neglected: No Advance Directives: Yes Advance Directives on File: Yes Advance Directives Date on File: 01/01/23 Do you have thoughts of harming others: None Do you have a plan to hurt others: No Plan Recently lost weight without trying: Unsure Eating poorly because of decreased appetite: No Nutrition Risks: No Nutritional Risk Patient : No service: No Current occupational status: retired Cognitive needs: No Hearing needs: No Vision needs: Yes Meds Allergies Allergy/AdvReac Type Severity Reaction Status Date / Time buspirone [From BuSpar] Allergy Unknown Stomach Verified 12/03/22 16:22 Upset nitrofurantoin Allergy Unknown Difficulty Verified 12/03/22 16:22 Breathing, COPD exacerbation sulfamethoxazole Allergy Unknown difficulty Verified 12/03/22 16:22 [From breathing, Sulfamethoxazole-Trimethoprim] COPD exacerbation trimethoprim Allergy Unknown difficulty Verified 12/03/22 16:22 [From breathing, Sulfamethoxazole-Trimethoprim] COPD exacerbation bupropion [From Wellbutrin] AdvReac Unknown insomnia Verified 12/03/22 16:22 fluoxetine [Prozac] AdvReac Unknown anxiety Verified 12/03/22 16:22 sertraline [Zoloft] AdvReac Unknown stomach Verified 12/03/22 16:22 upset Statins Depletion Allergy Unknown statin Uncoded 12/03/22 16:22 intolerant Active Medications: Current Medications Fentanyl (Fentanyl Citrate/Pf 100 Mcg/2 Ml Vial) 100 mcg IVPUSH Q5M PRN; Protocol PRN Reason: comfort Fentanyl (Sublimaze/Ns) 1,000 mcg in 100 mls @ 0 mls/hr IVCONT .Q0M MCKENNA; Protocol Midazolam HCl (Midazolam Hcl/Pf 2 Mg/2 Ml Vial) 2 mg IVPUSH Q5M PRN PRN Reason: comfort Sodium Chloride (0.9 % Sodium Chloride Flush 3 Ml Syringe) 3 ml IVFLUSH QSHIFT MCKENNA Last Admin: 01/12/23 10:07 Dose: 3 ml Home Medications Medication Instructions Recorded Confirmed Last Taken Type cholecalciferol (vitamin D3) 25 25 mcg PO BID 09/30/21 01/01/23 01/01/23 History mcg (1,000 unit) capsule fluticasone 250 mcg-salmeterol 50 1 ea inhalation BID 01/01/23 01/01/23 01/01/23 History mcg/dose blistr powdr for inhalation (Steven Deshpande) omeprazole 20 mg capsule,delayed 20 mg PO DAILY@0630 01/01/23 01/01/23 01/01/23 History release tiotropium bromide 18 mcg capsule 1 cap inhalation DAILY@1500 01/01/23 01/01/23 12/31/22 History with inhalation device Physical Exam Vital Signs and Narrative: Vital Signs: Last Vital Signs Temp 98.4 F 01/12/23 12:00 Pulse 99 01/12/23 12:40 Resp 21 H 01/12/23 12:00 BP 73/41 L 01/12/23 12:40 Pulse Ox 75 L 01/12/23 12:00 O2 Del Method Mechanical Ventil ation 01/12/23 12:00 O2 Flow Rate 15 01/12/23 06:20 FiO2 100 01/12/23 12:00 Oxygen Flow Rate 4 01/01/23 13:42 BMI result Body Mass Index 20.8 Results Labs 01/12/23 07:34 01/12/23 11:57 Labs: Laboratory Results - last 24 hr 01/11/23 01/12/23 01/12/23 18:37 00:53 06:22 MCV MCH MCHC RDW Plt Count MPV Immature Gran % (Auto) Neut % (Auto) Lymph % (Auto) Chambers % (Auto) Eos % (Auto) Baso % (Auto) Lymph # (Auto) Chambers # (Auto) Eos # (Auto) Baso # (Auto) Abs Immat Gran (auto) Absolute Neuts (auto) Absolute Nucleated RBC Nucleated RBC % (auto) Neutrophils % (Manual) Band Neutrophils % Abs Neuts (Manual) Platelet Estimate Plt Morphology Comment RBC Morphology Basophilic Stippling Ovalocytes Gunpowder Cells Acanthocytes (Spur) PT INR VBG pH 7.24 L VBG pCO2 78 VBG pO2 42 VBG HCO3 34 H VBG O2 Saturation 61.0 VBG Base Excess 5.3 Anion Gap 16 16 Estim Creat Clear Calc 49.0 43.3 Estimated GFR > 60 > 60 Random Glucose 125 H 108 Lactic Acid Calcium 9.4 D 9.1 Phosphorus Magnesium Albumin Urine Color Urine Appearance Urine pH Ur Specific Newborn Urine Protein Urine Glucose (UA) Urine Ketones Urine Blood Urine Nitrite Ur Leukocyte Esterase Urine RBC Urine WBC Ur Squamous Epith Cells Urine Bacteria Hyaline Casts 01/12/23 01/12/23 01/12/23 06:32 07:33 07:33 MCV MCH MCHC RDW Plt Count MPV Immature Gran % (Auto) Neut % (Auto) Lymph % (Auto) Chambers % (Auto) Eos % (Auto) Baso % (Auto) Lymph # (Auto) Chambers # (Auto) Eos # (Auto) Baso # (Auto) Abs Immat Gran (auto) Absolute Neuts (auto) Absolute Nucleated RBC Nucleated RBC % (auto) Neutrophils % (Manual) Band Neutrophils % Abs Neuts (Manual) Platelet Estimate Plt Morphology Comment RBC Morphology Basophilic Stippling Ovalocytes Darcie Cells Acanthocytes (Spur) PT INR VBG pH VBG pCO2 VBG pO2 VBG HCO3 VBG O2 Saturation VBG Base Excess Anion Gap 14 Estim Creat Clear Calc 34.1 Estimated GFR 49 Random Glucose 105 Lactic Acid Calcium 8.6 Phosphorus 3.0 Cancelled Magnesium 1.5 L Cancelled Albumin 3.3 L Cancelled Urine Color Yellow Urine Appearance Turbid Urine pH 6.0 Ur Specific Newborn 1.025 Urine Protein 300 (3+) H Urine Glucose (UA) Negative Urine Ketones Trace Urine Blood Moderate (2+) H Urine Nitrite Negative Ur Leukocyte Esterase Moderate (2+) H Urine RBC >20 H Urine WBC >50 Ur Squamous Epith Cells 11-20 Urine Bacteria 3+ Hyaline Casts 0-2 01/12/23 01/12/23 01/12/23 07:34 07:34 07:35 MCV 93.6 MCH 29.7 MCHC 31.7 RDW 14.6 Plt Count 147 L D MPV 11.0 Immature Gran % (Auto) Cancelled Neut % (Auto) Cancelled Lymph % (Auto) Cancelled Chambers % (Auto) Cancelled Eos % (Auto) Cancelled Baso % (Auto) Cancelled Lymph # (Auto) Cancelled Chambers # (Auto) Cancelled Eos # (Auto) Cancelled Baso # (Auto) Cancelled Abs Immat Gran (auto) Cancelled Absolute Neuts (auto) Cancelled Absolute Nucleated RBC 0.000 Nucleated RBC % (auto) 0.0 Neutrophils % (Manual) 63 Band Neutrophils % 37 H Abs Neuts (Manual) 10.3 H Platelet Estimate DECREASED Plt Morphology Comment NORMAL RBC Morphology NOTED Basophilic Stippling 2+ (3-5) Ovalocytes 1+ (5-14) Gunpowder Cells 1+ (0-2) Acanthocytes (Spur) 1+ (0-2) PT 12.9 INR 1.1 VBG pH VBG pCO2 VBG pO2 VBG HCO3 VBG O2 Saturation VBG Base Excess Anion Gap Estim Creat Clear Calc Estimated GFR Random Glucose Lactic Acid 1.6 Calcium Phosphorus Magnesium Albumin Urine Color Urine Appearance Urine pH Ur Specific Newborn Urine Protein Urine Glucose (UA) Urine Ketones Urine Blood Urine Nitrite Ur Leukocyte Esterase Urine RBC Urine WBC Ur Squamous Epith Cells Urine Bacteria Hyaline Casts 01/12/23 01/12/23 08:06 11:57 MCV MCH MCHC RDW Plt Count MPV Immature Gran % (Auto) Neut % (Auto) Lymph % (Auto) Chambers % (Auto) Eos % (Auto) Baso % (Auto) Lymph # (Auto) Chambers # (Auto) Eos # (Auto) Baso # (Auto) Abs Immat Gran (auto) Absolute Neuts (auto) Absolute Nucleated RBC Nucleated RBC % (auto) Neutrophils % (Manual) Band Neutrophils % Abs Neuts (Manual) Platelet Estimate Plt Morphology Comment RBC Morphology Basophilic Stippling Ovalocytes Gunpowder Cells Acanthocytes (Spur) PT INR VBG pH 7.33 VBG pCO2 64 VBG pO2 45 VBG HCO3 34 H VBG O2 Saturation 72.0 VBG Base Excess 7.2 Anion Gap 21 H Estim Creat Clear Calc 25.5 Estimated GFR 35 Random Glucose 360 H* Lactic Acid Calcium 7.6 L D Phosphorus Magnesium Albumin Urine Color Urine Appearance Urine pH Ur Specific Newborn Urine Protein Urine Glucose (UA) Urine Ketones Urine Blood Urine Nitrite Ur Leukocyte Esterase Urine RBC Urine WBC Ur Squamous Epith Cells Urine Bacteria Hyaline Casts Imaging Radiologist's Impressions: Impressions Chest X-Ray 01/11/23 14:28 IMPRESSION: 1. Diffuse increase interstitial markings in both lungs worse since 01/09/2023. No focal consolidation seen. 2. Mild blunting of left CP angle question pleural effusion or thickening. Chest X-Ray 01/12/23 09:56 IMPRESSION: 1. Endotracheal tube with tip terminating approximately 3 cm proximal to enedelia. 2. Right internal jugular catheter with tip terminating distally in the superior vena cava. 3. Increased infiltrates bilaterally and right pleural effusion. Assessment and Plan Time Spent With Patient Time: Total time managing care of this patient today ____ minutes.
[2023-01-12] MEDS: fentaNYL citrate/PF 100 MCG/2 ML VIAL IVPUSH ×2 (13:04→13:16)
[2023-01-12] MEDS: Midazolam HCl/PF 2 MG/2 ML VIAL IVPUSH (13:04)
--- NOTE | 2023-01-12 13:46 | PM.CCN ---
Critical Care Event Note Summary Date of Service: 01/12/23 Code activated: No Narrative: Notified by nurse that patient in comfort measures status has passed. On my exam, no pulse, no spontaneous respiration, pupils fixed and dilated, no corneal reflexes. Official time of 13:30. Family at bedside. Critical Care Time (minutes): 0
[2023-01-12 14:04] LABS: VBG HCO3 24 mmol/L (22-26); VBG pCO2 54 mmHg; VBG pH 7.25 (7.32-7.43); VBG pO2 43 mmHg
--- NOTE | 2023-01-12 14:17 | PM.DDS ---
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 Patient with waiting discharge placement when on 01/12/2023 early in the morning she developed hypotension with poor response to initial IV fluid resuscitation necessitating vasopressor support and transferred to intensive care unit. In the intensive care unit patient with rapid decompensation including hypoxemia with hypercapnia refractory to BiPAP support requiring emergent intubation; rapidly progressive shock refractory to maximum vasopressor support requiring several epinephrine and bicarbonate pushes. Patient family notified of significant change in her clinical status. Several discussions with family/healthcare proxy held regarding patient clinical status and overall little chance of meaningful recovery, and where patient's preference for avoidance of heroic measure, unless recovery is possible were discussed. patient cause status was changed to DNR. As patient's clinical status continued to deteriorate family/healthcare proxy decided to switch goals of care to palliation. Code status was changed to comfort measures only. Patient was terminally extubated and passed peacefully at 13:30 with family at bedside. Additional Data Attending physician: Sage Lawler MD
--- NOTE | 2023-01-12 16:14 | PC.NURSE ---
Assumed care at 07:00. Patient initially on bipap with Oxygenation 86% on 100%. Patient emergently intubated at beginning of shift with #7.5 ETT at 25 cm. Induction with Propofol IVP, and propofol gtt started. Patient was initially getting levophed to peripheral IV in RAC, 0.3 was starting dose, not yet charted. Patient with Low BPs immediately after intubation despite levophed; central line placed and propofol held to accomodate central route of administration of levophed; Provider placed TLC to RIJ, placedment confirmed, Levophed administered centrally at gtt rate of 1. On telemetry, patient was in sinus rhythm in 80's-100, but had an episode of V-fib at this time, Patient required Epinephrine 1 mg x 2 IVP for low BP, and VBG was drawn showing acidosis, so IVP sodium bicarbonate x 2 amps given emergently, MC applied to patient's chest as preparation, but not used, patient's pulse remained strong. Patient was started on epi gtt at 0.2 and titrated up to 0.4. Patient was administered solumedrol IVP and albumin as per emar. Patient's family was permitted into room using PPE precautions and compliant with education . Patient continued to be in sinus rhythm but hypotensive despite interventions, and her oxygen saturation was low in the 70's-80's despite 100% FiO2 on ventilator, initially thick bennett secretions suctioned but continued to be hypoxic. Family had discusssion with MD and determined initially not to escalate care and changed status to DNR. After this point patient continued to be hypotensive and hypoxic. Patient was maintained on Propofol gtt low dose per emar for sedation and fenanyl gtt 25 mg/hour for comfort, but was also unarousable since intubation, with PERRL 3 mm sluggish, no tracking, minimally withdraws to pain, no commands, generally flaccid throughout when not assessing. Patient had no BM, no OGT or nutritive acces. Patient had soni placed before this RN's arrival, 16 Fr, 10 cc balloon, which had a total of 25 ccs of output from start of shift, concentrated dark yellow urine with sediment, cloudy, MD aware of low urine output. 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 Patient passed at 13:30. home TBD. [employer] called and brewery representative ruled out for all donation due to covid positive, Ref# [id number]
[2023-01-12 17:19] LABS: Urea, Random Urine 336 mg/dL
--- NOTE | 2023-01-13 11:24 | P.CDIM_ITS ---
PROVIDER RESPONSE TEXT: To clarify, the appropriate diagnosis supported by the clinical indicators: Folate deficiency anemia: d QUERY TEXT: PHYSICIAN'S DOCUMENTATION REQUEST Date of Query: 01/09/2023 12:04 PM EDT Patient Name: Kadi Wood Admit Date: 01/01/2023 Dear John Feldman, A review of the medical record indicates additional documentation may be needed. Please review below and update the documentation accordingly. Clinical Indicators: LABS: Folate 2.8 L Dx: Anemia Based on the above, could you clarify which of the following is the most likely type of anemia you ar e evaluating, treating, and/or monitoring? Folate deficiency anemia indicate etiology, such as dietary, drug-induced, etc Protein deficiency anemia Other please specify Other (explain)Clinically unable to determine (explain)Thank you, Piedad Elliott, CCS, CDIS Use of terms such as suspected, likely, concern for, or probable (associated with a specific diagnosi s that is being evaluated, monitored, or treated as if it exists) are acceptable and can be coded in the inpatient se tting, when documented at the time of discharge. Please use your independent medical judgment in providing your response. THIS QUERY IS PART OF THE PERMANENT MEDICAL RECORD
[2023-01-23 17:37] LABS: Cortisol, Free 2.51 mcg/dL
== END 2023-01-12 14:00 | disposition expired | DRG 871 ==
LOC: HO.ED 15:43 → HO.EDOVER 18:18 → HO.IMC 19:18 → HO.ICU 01-12 05:24
PROVIDERS: Internal Medicine; Internal Medicine Nephrology; Nurse Practitioner Family; Physician Assistant Medical; Student in an Organized Health Care Education/Training Program; Admitting Provider Student in an Organized Health Care Education/Training Program; Emergency Provider Emergency Medicine; PCP Internal Medicine; Visit Provider Internal Medicine Pulmonary Disease
DX: A41.89 Other specified sepsis (principal); J96.21 Acute and chronic respiratory failure with hypoxia; R65.21 Severe sepsis with septic shock; U07.1 COVID-19; J96.22 Acute and chronic respiratory failure with hypercapnia; N17.9 Acute kidney failure, unspecified; C34.12 Malignant neoplasm of upper lobe, left bronchus or lung; J44.1 Chronic obstructive pulmonary disease with (acute) exacerbation; J96.11 Chronic respiratory failure with hypoxia; E22.2 Syndrome of inappropriate secretion of antidiuretic hormone; I10 Essential (primary) hypertension; Z99.81 Dependence on supplemental oxygen; Z66 Do not resuscitate; D52.9 Folate deficiency anemia, unspecified; F41.0 Panic disorder [episodic paroxysmal anxiety]; E86.1 Hypovolemia; Z51.5 Encounter for palliative care; F17.210 Nicotine dependence, cigarettes, uncomplicated; I25.2 Old myocardial infarction; Z79.51 Long term (current) use of inhaled steroids; Z79.899 Other long term (current) drug therapy
CPT/HCPCS: 0241U; 36415; 71045; 80048; 80053; 81001; 82040; 82530; 82607; 82746; 82803; 82947; 83540; 83605; 83615; 83735; 83880; 83930; 83935; 84100; 84145; 84300; 84443; 84484; 84540; 85007; 85025; 85027; 85610; 86140; 87040; 87077; 87086; 87088; 87186; 87205; 87635; 92610; 93005; 94002; 94640; 94660; 97110; 97112; 97162; 97530; 99285; C1758; J0171; J1100; J1650; J1940; J2060; J2250; J2270; J2543; J3010; J3371; J3475; J7131; P9047

== ENCOUNTER → 2023-01-01 13:38 | Outpatient (BNV) | payer MEDICARE, SELFPAY | PROVIDERS: Admitting Provider Student in an Organized Health Care Education/Training Program; Emergency Provider Emergency Medicine; PCP Internal Medicine; Visit Provider Internal Medicine | DX: R00.0 Tachycardia, unspecified (principal) | CPT/HCPCS: 93010 ==

== ENCOUNTER 2023-01-01 17:40 | Outpatient (BNV) | payer MEDICARE, SELFPAY | END 2023-01-09 02:10 | PROVIDERS: Admitting Provider Student in an Organized Health Care Education/Training Program; Emergency Provider Emergency Medicine; PCP Internal Medicine; Visit Provider Internal Medicine Cardiovascular Disease | DX: R00.0 Tachycardia, unspecified (principal); R94.31 Abnormal electrocardiogram [ECG] [EKG] | CPT/HCPCS: 93010 ==

== ENCOUNTER → 2023-01-01 17:40 | Outpatient (BNV) | payer MEDICARE, SELFPAY | PROVIDERS: Admitting Provider Student in an Organized Health Care Education/Training Program; Emergency Provider Emergency Medicine; PCP Internal Medicine; Visit Provider Internal Medicine Pulmonary Disease | DX: R57.9 Shock, unspecified (principal); J81.1 Chronic pulmonary edema; J96.01 Acute respiratory failure with hypoxia; J96.02 Acute respiratory failure with hypercapnia; N17.9 Acute kidney failure, unspecified; E87.1 Hypo-osmolality and hyponatremia; U07.1 COVID-19; D49.1 Neoplasm of unspecified behavior of respiratory system | CPT/HCPCS: 36556; 99239; 99499 ==

== ENCOUNTER → 2023-01-01 17:40 | Outpatient (BNV) | payer MEDICARE, SELFPAY | PROVIDERS: Admitting Provider Student in an Organized Health Care Education/Training Program; Emergency Provider Emergency Medicine; PCP Internal Medicine; Visit Provider Student in an Organized Health Care Education/Training Program | DX: U07.1 COVID-19 (principal); J96.21 Acute and chronic respiratory failure with hypoxia; E87.1 Hypo-osmolality and hyponatremia; R53.1 Weakness | CPT/HCPCS: 99223; 99231; 99232; 99233; 99499 ==